=== PATIENT | male | born 1960 | race Caucasian/White ===

== ENCOUNTER 2019-10-12 07:57 | Outpatient (CLI) | payer OTHER, SELFPAY ==
--- NOTE | 2019-10-12 09:15 | ECG_ITS ---
Measurements Intervals [place] Rate: 86 P: 45 AR: 165 QRS: 19 QRSD: 105 T: 16 QT: 339 QTc: 407 Interpretive Statements SINUS RHYTHM BASELINE ARTIFACT- I, III, AVR, AVL, AVF NORMAL ECG Electronically Signed On 10-12-2019 10:22:25 CDT by Luke Sepulveda D.O.
[2019-10-12 09:47] LABS: Basophils Absolute Auto 0.1 K/mm3 (0.0-0.1); Eosinophils Absolute Auto 0.3 K/mm3 (0-0.3); Eosinophils Percent Auto 2.5 % (0-4.4); Hematocrit 44.8 % (42.0-52.0); Hemoglobin 15.7 g/dL (14.0-18.0); Immature Granulocyte Absolute 0.04 K/mm3 (0.00-0.031); Immature Granulocyte Percent A 0.4 % (0-0.5); Lymphocytes Absolute Auto 2.31 K/mm3 (0.9-3.2); Lymphocytes Percent Auto 22.2 % (18.3-44.2); Mean Corpuscular Hemoglobin 32.6 pg (26-34); Mean Corpuscular Volume 93.1 fl (80-100); Mean Platelet Volume 10.9 fl (7.4-10.4); Monocytes Percent Auto 9.1 % (2.6-8.5); Neutrophils Absolute Auto 6.7 K/mm3 (1.3-6.7); Neutrophils Percent Auto 64.8 % (45.5-73.1); Platelet Count Result 211 k/mm3 (150-375); Red Blood Count 4.81 M/mm3 (4.6-6.20); Red Cell Distribution Width 12.8 % (11.5-14.5); White Blood Count 10.4 K/mm3 (4.5-10.0)
[2019-10-12 09:56] LABS: Albumin Level 4.5 g/dL (3.5-5.1)
[2019-10-12 09:58] LABS: Urine Cotinine NEGATIVE
[2019-10-12 10:00] LABS: Blood Urea Nitrogen 23 mg/dL (9-20); Calcium 9.3 mg/dL (8.4-10.2); Carbon Dioxide 29 mmol/L (22-30); Chloride 101 mmol/L (98-107); Estimated Glomerular Filt Rate > 60; Glucose 77 mg/dL (75-110); Sodium 137 mmol/L (137-145)
== END 2019-10-12 07:58 | disposition home or self-care (01) ==
LOC: ANHSURGERY 08:02
PROVIDERS: Anesthesiology; PCP Nurse Practitioner Adult Health; Visit Provider Orthopaedic Surgery
DX: Z01.818 Encounter for other preprocedural examination (principal); M17.11 Unilateral primary osteoarthritis, right knee
CPT/HCPCS: 36415; 80048; 80307; 82040; 83036; 85025; 86850; 86900; 86901; 93005

== ENCOUNTER 2019-10-17 00:12 | Outpatient (CLI) | payer OTHER, SELFPAY ==
[2019-10-17 16:10] LABS: SARS-CoV-2 RNA PCR Negative
== END 2019-10-17 00:13 | disposition home or self-care (01) ==
LOC: ANHCOVIDDT 00:12
PROVIDERS: PCP Nurse Practitioner Adult Health; Visit Provider Orthopaedic Surgery
DX: Z01.818 Encounter for other preprocedural examination (principal); Z11.59 Encounter for screening for other viral diseases
CPT/HCPCS: 87635; C9803; U0003

== ENCOUNTER 2019-10-19 01:42 | Day surgery (SDC) | payer OTHER, SELFPAY ==
[2019-10-12 08:17] VITALS: BMI 33.5
[2019-10-12 09:07] VITALS: BP 120/83; PULSE 97; RESP 18; TEMP 36.9; O2SAT 98
--- NOTE | 2019-10-14 14:19 | PM.IMHP ---
H&P: HPI History of Present Illness Chief complaint: Right Knee OA Narrative: Jose Guadalupe Chavarria is a 59 year old male Who presents with right knee pain chronic in nature. This is due to primary osteoarthritis. He has aching and pain with any activity and is limited in his activities as well. He has started pain rest pain and night pain and cannot stand or walk for long periods. X-rays have shown advanced primary osteoarthritis and despite conservative measures including cortisone therapy and anti-inflammatories as symptoms continue he has mechanical symptoms with swelling worse with activities somewhat relieved by rest. At this point he has discuss further treatment options in detail with Dr. Daniel he would now like to proceed with a total knee arthroplasty right knee. Review of Systems Review of Systems: All systems reviewed & are unremarkable except as noted in HPI and below Meds Home Medications and Allergies Home Medications Medication Instructions Recorded Confirmed Type diclofenac sodium 75 mg PO BID 10/12/19 10/12/19 History furosemide 20 mg PO BID 10/12/19 10/12/19 History gabapentin 300 mg PO TID 10/12/19 10/12/19 History hydrocodone-acetaminophen 1 tablet PO Q6H PRN 10/12/19 10/12/19 History pantoprazole 40 mg PO QAM 10/12/19 10/12/19 History phentermine 37.5 mg PO DAILY 10/12/19 10/12/19 History tamsulosin 0.4 mg PO DAILY 10/12/19 10/12/19 History zolpidem [Ambien] 10 mg PO HS PRN 10/12/19 10/12/19 History Allergies Allergy/AdvReac Type Severity Reaction Status Date / Time No Known Allergies Allergy Unverified 10/12/19 08:09 Exam Narrative: Exam Narrative: Patient is noted to be 5 ft 10 232 lb. HEENT exam within normal limits. Heart regular rate and rhythm. Lungs clear auscultation. Abdomen benign. Extremities showed the patient's right knee to be painful with manipulation range of motion. He has pain with ambulation and walks with an antalgic gait. He has subpatellar crepitation mild effusion swelling knee joint is otherwise stable strength is 5/5. Neurovascular is intact. Skin is intact. X-rays show advanced primarily arthritis right knee joint. Central nervous system exam within normal limits. Assessment and Plan Additional Plan By history x-ray exam the patient is noted to have advanced primary osteoarthritis right knee joint. The patient's discussed risks benefits limitations and alternatives of surgery in great detail Dr. Daniel is noted proceed with right total knee arthroplasty. The patient is scheduled undergo surgery October 19, 2019 and [facility] with Dr. Daniel. The patient voiced understanding agrees above plan. The patient has a history of benign prostatic hypertrophy hypertension GERD chronic pain and will be followed by the hospitalist throughout hospital stay. The plan is to have the patient get over and stay and we evaluated postoperatively and be discharged home when deemed stable.
[2019-10-19] VITALS (17 sets, daily range): BP systolic 103–136; BP diastolic 61–89; PULSE 60–86; RESP 12–22; TEMP 36.1–36.8; O2SAT 93–100; BMI 33.5
--- NOTE | ~2019-10-19 | XR_ITS ---
EXAMINATION: XR knee RT 2V DATE: 10/19/2019 09:27 CDT INDICATION: Right knee arthroplasty TECHNIQUE: 2 views right knee FINDINGS: There is a right total knee arthroplasty in expected position. Subcutaneous gas with fluid and air in the joint and overlying skin ruben are consistent with recent surgery. No evidence of p eriprosthetic fracture. IMPRESSION: 1. Recent right total knee arthroplasty. Reviewed, dictated and finalized at location A.
[2019-10-19] MEDS: LACTATED RINGERS 1,000 ML 30 ML IV CONT ×2 (06:45→09:07)
[2019-10-19] MEDS: TRANEXAMIC ACID 1,000MG/ISO100 1,000 MG/100 ML BAG 200 MG IVPB (07:00)
--- NOTE | 2019-10-19 07:06 | WPDHPUPDATE1 ---
History and Physical Update Update Date/Time: 10/19/19 07:06 History and Physical has been reviewed, including an updated exam of the patient. There are NO changes in the patient's condition. Risks, benefits, and alternatives have been discussed and questions answered. Patient agrees to proceed with procedure.
--- NOTE | 2019-10-19 07:12 | WPDANESEPPF ---
Anes - Initial Pre Proc Eval Procedure: Operation Date: 10/19/19 07:30 Proposed Procedures p Right Total Knee Arthroplasty - Raphael Daniel MD Date/Time: 10/19/19 07:12 Surgeon: Raphael Daniel MD Pre Op Diagnosis: Right Knee OA Patient Data Age: 59 Gender: M Height: 5 ft 10 in Weight: 105.5 kg Last Vital Signs Temp 36.1 C L 10/19/19 06:06 Pulse 82 10/19/19 06:06 Resp 20 10/19/19 06:06 BP 135/89 10/19/19 06:06 Pulse Ox 97 10/19/19 06:06 Allergies Allergy/AdvReac Type Severity Reaction Status Date / Time No Known Allergies Allergy Unverified 10/19/19 06:13 Home Medications Medication Instructions Recorded Confirmed Type diclofenac sodium 75 mg PO BID 10/12/19 10/19/19 History furosemide 20 mg PO BID 10/12/19 10/19/19 History gabapentin 300 mg PO TID 10/12/19 10/19/19 History hydrocodone-acetaminophen 1 tablet PO Q6H PRN 10/12/19 10/19/19 History pantoprazole 40 mg PO QAM 10/12/19 10/19/19 History phentermine 37.5 mg PO DAILY 10/12/19 10/19/19 History tamsulosin 0.4 mg PO DAILY 10/12/19 10/19/19 History zolpidem [Ambien] 10 mg PO HS PRN 10/12/19 10/19/19 History Patient hx anesthesia problems: post op nausea/vomiting Family hx anesthesia problems: none PMFSH Past Medical History Medical History Chronic pain syndrome GERD (gastroesophageal reflux disease) Anes - Eval Final PreProcedure Day of Procedure 10/19/19 07:12 Patient weight: obese Heart: regular rate and rhythm Lungs: clear to auscultation Airway: Mallampati scale class II Neurological: alert and oriented Last oral intake: >/= 8 hours ASA classification: III Emergent: no Anesthetic plan: proceed Anesthesia type and monitoring: general LMA and standard monitoring Informed Consent: The patient's anesthetic plan and its attendant risks and benefits were discussed with the patient/family/POA. Questions were solicited and answers provided to the satisfaction of the patient/family/POA.
[2019-10-19] MEDS: SCOPOLAMINE 1.5 MG PATCH TRANSDERM (07:21)
[2019-10-19] MEDS: ceFAZolin 2 GM/D5W 50 ML 2 GM/50 ML BAG IVPB ×3 (07:31→23:15)
[2019-10-19] MEDS: GENTAMICIN BONE CEMENT REFOBACIN 1 EACH TOPICAL (07:49)
--- NOTE | 2019-10-19 08:40 | P.OP_ITS ---
Procedure Note - Detailed Date of procedure: 10/19/19 Pre-op diagnosis: Right Knee OA Post-op diagnosis: same Procedure performed: Right total knee arthroplasty Description of procedure: The patient was brought to the operating room. General anesthetic was administered. Placed on the operating table and sterilely prepped and draped in usual manner. A longitudinal incision was made. Tourniquet inflated to 300 mmHg for a total of [time] minutes. Dissection carried down to the fascia. Medial parapatellar incision was made and the patella subluxated laterally. Patella cut from [26] to [26] mm and sized for a [37] mm button. The tibia cut perpendicular to the long axis and femur cut in 5 degrees of valgus, a [65] femur trialed. [75] tibia was felt to fit the best. The soft tissue balanced, hemostasis obtained. All [address], [75] tibia, [65] femur, [37] mm patella, and [10] mm poly. Motion was 0-125 degrees with good stablility and flexion and extension. The wound was closed with #2 vicryl, 2-0 Vicryl and ruben. Anesthesia: GETA Surgeon: Raphael Daniel MD Interventional Pain Physician: Arjun Saldana Estimated blood loss (mL): 200 Drains: No Packing: No Pathology: none sent Complications: No immediate complications Condition: stable Disposition: PACU Findings: arthritis
--- NOTE | 2019-10-19 09:56 | WPDANESPNB ---
Anes - Peripheral Nerve Block Date/Time: 10/19/19 09:56 I have discussed with the patient/family/POA the placement of a peripheral nerve block for post-operative pain management, including associated risks, benefits, complications, and side effects. Alternative methods of post-operative analgesia were detailed. Questions were solicited and answers provided to the satisfaction of the patient/family/POA. Time-Out: A pre-procedural Time-Out was completed immediately before starting the procedure and confirmed: Patient Identification, Site, Procedure, Patient Position and the Availability of Requisite Equipment. Clinical Indications: Acute post-operative pain management requested by the operative surgeon. Nerve Block Insertion Note Anes-nerve block: femoral right Patient position: supine Skin prep: chlorhexidine Needle: 22 gauge, stimulating, insulated echogenic needle. Needle length: 50 mm Technique: nerve stimulation lost at (mA) (0.23) Injectate: bupivacaine 0.25% with epi 5 mcg/ml (30ml) Observations: tolerated well Complications: none Procedure start time:: 727 Procedure end time:: 729
[2019-10-19] MEDS: HYDROMORPHONE HCL 1 MG/ML INJ IV PUSH ×3 (10:01→10:23)
--- NOTE | 2019-10-19 11:06 | ADMGEN ---
This patient, Jose Guadalupe Chavarria, was admitted to 2 Medical Room 256-. Patient/family oriented to hospital policies and general routines including ID bracelet, bed and alarms, visiting hours, pain management, procedures, bathroom and other care routines, personal items, smoking policy, room service/diet, and visiting hours. Valuables list has been completed. Information on how to activate the Rapid Response Team has been discussed. Patient/Family are encouraged to report perceived risks to care and to ask questions if they do not understand what they are told or what they should do.
[2019-10-19] MEDS: SODIUM CHLORIDE 0.9% IV 1,000 ML 125 ML IV CONT (11:27)
[2019-10-19] MEDS: DOCUSATE SODIUM 100 MG CAPSULE PO ×2 (12:32→17:15)
[2019-10-19] MEDS: CELECOXIB 200 MG CAPSULE PO ×2 (12:32→17:15)
[2019-10-19] MEDS: GABAPENTIN 300 MG CAPSULE PO ×2 (12:32→17:15)
--- NOTE | 2019-10-19 17:02 | PM.IMCN ---
Assessment and Plan Assessment and plan (1) Status post total right knee replacement: Code(s): Z96.651 - Presence of right artificial knee joint Status: Acute Assessment and Plan: Right knee joint arthroplasty today. OT and PT apparent visit. Increase activity as per Ortho (2) BPH (benign prostatic hyperplasia): Code(s): N40.0 - Benign prostatic hyperplasia without lower urinary tract symptoms Status: Acute Assessment and Plan: Continue tamsulosin (3) Chronic pain: Code(s): G89.29 - Other chronic pain Status: Acute Assessment and Plan: With continue gabapentin an anti inflammatory agent (4) DVT prophylaxis: Code(s): Z29.9 - Encounter for prophylactic measures, unspecified Status: Acute Assessment and Plan: Low-dose Xarelto per Ortho 10 mg daily HPI Data of Consult Consult date: 10/19/19 Requesting Physician: Raphael Daniel MD Primary Care Provider: Tali Bailey, [employer] Consult Narrative Narrative: Date of visit 10/18. Jose Guadalupe Chavarria is a 59 year old male with DJD and status post right total knee today. Has history of benign prostatic hypertrophy ,GERD, and chronic pain issues where contacted to evaluating for these problems. Presently this if you are postop laying in bed comfortable with no appreciable complaints. He has had no shortness of breath or chest discomfort Review of Systems Review of Systems: Narrative: Constitutional weight has been steady appetite good no fever no chills Eye no double vision or scotoma Mouth no pharyngitis laryngitis Pulmonary no shortness breath wheezing or cough CV no chest pain or palpitation, had had negative cardiac catheterization over 5 years ago for chest pain GI no melena hematochezia diarrhea and no dysphagia ,occasional reflux no dysuria no hematuria Muscle skeletal to the knee problems but also chronic back problems and shoulder Integument no skin breakdown rashes Neuro no seizures no syncope Psych no undue depression PMFSH Past Medical History Medical History Chronic pain syndrome GERD (gastroesophageal reflux disease) Family History Family History (Updated 10/19/19 @ 11:12 by Denae Estes RN) Father Colon cancer Grandparent Colon cancer Social History Social History Smoking packs per day: 2 Smoking cigarettes per day: 40.0 Years smoked: 25 Smoking pack-years: 50.00 Smoking status: Former smoker Tobacco type: cigarettes Alcohol intake: current Drinks per week: 2 Substance use: never Substance use type: does not use Gender identity (if verbalized by the patient): Male Spiritual care concerns: No Meds Home Medications and Allergies Home Medications Medication Instructions Recorded Confirmed Type diclofenac sodium 75 mg PO BID 10/12/19 10/19/19 History furosemide 20 mg PO DAILY 10/12/19 10/19/19 History gabapentin 300 mg PO TID 10/12/19 10/19/19 History hydrocodone-acetaminophen 1 tablet PO Q6H PRN 10/12/19 10/19/19 History pantoprazole 40 mg PO QAM 10/12/19 10/19/19 History phentermine 37.5 mg PO DAILY 10/12/19 10/19/19 History tamsulosin 0.4 mg PO DAILY 10/12/19 10/19/19 History zolpidem [Ambien] 10 mg PO HS 10/12/19 10/19/19 History Allergies Allergy/AdvReac Type Severity Reaction Status Date / Time No Known Allergies Allergy Verified 10/19/19 11:14 Vital Signs Vital Signs - 24 hr 10/19/19 06:06 10/19/19 09:07 10/19/19 09:22 Temperature 36.1 C L 36.1 C L Pulse Rate 82 74 79 Respiratory Rate 20 21 H 22 H Blood Pressure 135/89 103/78 133/86 Pulse Oximetry 97 97 100 10/19/19 09:30 10/19/19 09:45 10/19/19 10:00 Temperature Pulse Rate 66 77 76 Respiratory Rate 12 16 16 Blood Pressure 132/82 117/70 136/82 Pulse Oximetry 100 100 100 10/19/19 10:15 10/19/19 10:30 10/19/19 10:45 Temperature
[2019-10-19] MEDS: FUROSEMIDE 20 MG TABLET PO (17:16)
[2019-10-19] MEDS: RIVAROXABAN 10 MG TABLET PO (20:35)
[2019-10-20 02:00] VITALS: BP 124/69; PULSE 80; RESP 17; TEMP 37; O2SAT 98
[2019-10-20 05:27] LABS: Basophils Percent Auto 0.1 % (0.2-1.2); Eosinophils Percent Auto 0.1 % (0-4.4); Hematocrit 37.5 % (42.0-52.0); Hemoglobin 13.1 g/dL (14.0-18.0); Immature Granulocyte Absolute 0.04 K/mm3 (0.00-0.031); Immature Granulocyte Percent A 0.3 % (0-0.5); Lymphocytes Absolute Auto 1.68 K/mm3 (0.9-3.2); Lymphocytes Percent Auto 14.1 % (18.3-44.2); Mean Corpuscular HGB Conc 34.9 g/dl (32-36); Mean Corpuscular Hemoglobin 33.3 pg (26-34); Mean Corpuscular Volume 95.4 fl (80-100); Mean Platelet Volume 10.7 fl (7.4-10.4); Monocytes Absolute Auto 1.2 K/mm3 (0.1-0.6); Monocytes Percent Auto 9.9 % (2.6-8.5); Neutrophils Percent Auto 75.5 % (45.5-73.1); Platelet Count Result 204 k/mm3 (150-375); Red Blood Count 3.93 M/mm3 (4.6-6.20); Red Cell Distribution Width 12.8 % (11.5-14.5); White Blood Count 11.9 K/mm3 (4.5-10.0)
[2019-10-20 05:34] LABS: Blood Urea Nitrogen 14 mg/dL (9-20); Calcium 8.3 mg/dL (8.4-10.2); Carbon Dioxide 31 mmol/L (22-30); Chloride 102 mmol/L (98-107); Estimated CRCL calculation 92 ml/min; Estimated Glomerular Filt Rate > 60; Glucose 107 mg/dL (75-110); Potassium 4.5 mmol/L (3.4-5.0); Sodium 136 mmol/L (137-145)
[2019-10-20 06:00] VITALS: BP 131/75; PULSE 58; RESP 20; TEMP 36.6; O2SAT 99
[2019-10-20] MEDS: ceFAZolin 2 GM/D5W 50 ML 2 GM/50 ML BAG IVPB (06:34)
[2019-10-20] MEDS: CELECOXIB 200 MG CAPSULE PO (08:11)
[2019-10-20] MEDS: GABAPENTIN 300 MG CAPSULE PO ×2 (08:11→13:42)
[2019-10-20] MEDS: FUROSEMIDE 20 MG TABLET PO (08:11)
[2019-10-20] MEDS: DOCUSATE SODIUM 100 MG CAPSULE PO (08:11)
[2019-10-20 08:52] VITALS: BP 114/72; PULSE 88; RESP 16; TEMP 36.7; O2SAT 100
--- NOTE | 2019-10-20 10:36 | PM.IMPN ---
Progress Note: A&P Assessment and Plan (1) Status post total right knee replacement: Code(s): Z96.651 - Presence of right artificial knee joint Status: Acute Assessment and Plan: Right knee joint arthroplasty postop day 1. Doing well . OT and PT per Ortho and may be discharged later today or 10/20 (2) BPH (benign prostatic hyperplasia): Code(s): N40.0 - Benign prostatic hyperplasia without lower urinary tract symptoms Status: Acute Assessment and Plan: Continue tamsulosin (3) Chronic pain: Code(s): G89.29 - Other chronic pain Status: Acute Assessment and Plan: With continue gabapentin and anti inflammatory agent (4) DVT prophylaxis: Code(s): Z29.9 - Encounter for prophylactic measures, unspecified Status: Acute Assessment and Plan: Low-dose Xarelto per Ortho 10 mg daily Subjective Date/time seen: 10/20/19 10:36 Interval history: Date of visit 10/19 . 59-year-old white male with BPH and chronic back pain who underwent right total knee arthroplasty 10/18. Today has already walked in the [place] with PT and states is doing fine. Chest pain shortness breath or other symptoms. Exam Narrative: Exam Narrative: Blood pressure 114/72 pulse is 86 afebrile Pupils equal reactive to light sclera anicteric Mouth normal Lungs clear CV regular rate rhythm no murmurs Abdomen is soft nontender Extremities without edema right leg Srinivasa wrap from foot to above knee Neuro alert pleasant cooperative no focal deficits Integument no visible skin breakdown or rashes Objective Data Vital Signs Vital Signs: Vital Signs - 24 hr 10/19/19 10:45 10/19/19 11:00 10/19/19 11:30 Temperature 36.4 C 36.4 C L 36.2 C L Pulse Rate 63 85 61 Respiratory Rate 20 18 16 Blood Pressure 116/67 109/61 111/71 Pulse Oximetry 94 98 93 10/19/19 12:30 10/19/19 14:00 10/19/19 18:00 Temperature 36.2 C L 36.3 C L 36.7 C Pulse Rate 78 64 86 Respiratory Rate 16 18 16 Blood Pressure 118/68 123/82 116/85 Pulse Oximetry 96 98 96 10/19/19 20:00 10/19/19 21:33 10/19/19 21:34 Temperature 36.8 C 36.8 C Pulse Rate 60 60 60 Respiratory Rate 19 19 19 Blood Pressure 136/85 136/85 Pulse Oximetry 96 96 96 10/20/19 02:00 10/20/19 06:00 10/20/19 08:52 Temperature 37.0 C 36.6 C 36.7 C Pulse Rate 80 58 L 88 Respiratory Rate 17 20 16 Blood Pressure 124/69 131/75 114/72 Pulse Oximetry 98 99 100 Intake/Output Intake/Output: Intake & Output 10/17/19 10/18/19 10/19/19 10/20/19 23:59 23:59 23:59 23:59 Intake Total 3245 1040 Output Total 1925 Balance 3245 -885 Meds/Results Medications: Active Medications Generic Name Dose Route Start Last Admin Trade Name Freq PRN Reason Stop Dose Admin Hydrocodone Bitart/Acetaminophen 1 tab 10/19/19 09:00 10/20/19 08:11 [place] 7.5-325 Mg PO 1 tab Q4HR MERCEDES Administration Celecoxib 200 mg 10/19/19 08:00 10/20/19 08:11 Celebrex PO 200 mg BIDWM MERCEDES Administration Docusate Sodium 100 mg 10/19/19 09:00 10/20/19 08:11 Col[place] Capsule PO 100 mg BID MERCEDES Administration Furosemide 20 mg 10/19/19 17:00 10/20/19 08:11 Lasix Tablet PO 20 mg BID MERCEDES Administration Gabapentin 300 mg 10/19/19 13:00 10/20/19 08:11 Neurontin PO 300 mg TID MERCEDES Administration Morphine Sulfate 4 mg 10/19/19 07:07 Morphine Sulfate Inj IV PUSH Q2H PRN Breakthrough pain rated 7-10 Naloxone HCl 0.1 mg 10/19/19 07:07 Narcan IV PUSH Q2M PRN Opiate Reversal Oxycodone HCl 5 mg 10/19/19 07:07 Roxicodone Ir Tablet PO Q4H PRN Pain Rated 4-6 Rivaroxaban 10 mg 10/19/19 21:00 10/19/19 20:35 Xarelto PO 10/30/19 17:01 10 mg DAILY@17 MERCEDES Administration Radiology Results: ITS Impressions Knee X-Ray 10/19/19 09:27 IMPRESSION: 1. Recent right total knee arthroplasty. Labs Labs: Laboratory Results - last 24 hr 10/20/19
[2019-10-20 14:00] VITALS: BP 128/63; PULSE 70; RESP 18; TEMP 36.6; O2SAT 100
--- NOTE | 2019-10-20 14:20 | PM.PNORT ---
Progress Note: A&P Additional Plan Patient is being discharged home today, he will follow up at 2 weeks postop for staple removal and wound recheck patient instructed to call the office immediately for any problems difficulties or questions he voiced understanding agrees above plan see discharge orders. Time Spent With Patient Time with patient: less than 15 minutes Subjective Subjective Date/Time Seen: 10/20/19 14:20 Patient is 1 day postop status post total knee arthroplasty doing well. He tolerated physical therapy well today. Pain is well controlled. Vital signs are stable he is afebrile neurovascular is intact wound is clean and dry calves are benign patient has no other complaints and is ready for discharge home patient voiced understanding agrees above plan see discharge orders. Review of Systems Review of Systems: All systems reviewed & are unremarkable except as noted in HPI and below Exam Narrative: Exam Narrative: Vital signs stable afebrile, neurovascular is intact. Calves are benign. Wound is clean and dry right total knee arthroplasty. Skin is intact. Objective Data Vital Signs Vital Signs: Vital Signs - 24 hr 10/19/19 18:00 10/19/19 20:00 10/19/19 21:33 Temperature 36.7 C 36.8 C Pulse Rate 86 60 60 Respiratory Rate 16 19 19 Blood Pressure 116/85 136/85 Pulse Oximetry 96 96 96 10/19/19 21:34 10/20/19 02:00 10/20/19 06:00 Temperature 36.8 C 37.0 C 36.6 C Pulse Rate 60 80 58 L Respiratory Rate 19 17 20 Blood Pressure 136/85 124/69 131/75 Pulse Oximetry 96 98 99 10/20/19 08:52 10/20/19 14:00 Temperature 36.7 C 36.6 C Pulse Rate 88 70 Respiratory Rate 16 18 Blood Pressure 114/72 128/63 Pulse Oximetry 100 100 Intake/Output Intake/Output: Intake & Output 10/17/19 10/18/19 10/19/19 10/20/19 23:59 23:59 23:59 23:59 Intake Total 3245 1280 Output Total 1925 Balance 3245 -645 Meds/Results Medications: Active Medications Generic Name Dose Route Start Last Admin Trade Name Freq PRN Reason Stop Dose Admin Hydrocodone Bitart/Acetaminophen 1 tab 10/19/19 09:00 10/20/19 13:42 [place] 7.5-325 Mg PO 1 tab Q4HR MERCEDES Administration Celecoxib 200 mg 10/19/19 08:00 10/20/19 08:11 Celebrex PO 200 mg BIDWM MERCEDES Administration Docusate Sodium 100 mg 10/19/19 09:00 10/20/19 08:11 Colace Capsule PO 100 mg BID MERCEDES Administration Furosemide 20 mg 10/19/19 17:00 10/20/19 08:11 Lasix Tablet PO 20 mg BID MERCEDES Administration Gabapentin 300 mg 10/19/19 13:00 10/20/19 13:42 Neurontin PO 300 mg TID MERCEDES Administration Morphine Sulfate 4 mg 10/19/19 07:07 Morphine Sulfate Inj IV PUSH Q2H PRN Breakthrough pain rated 7-10 Naloxone HCl 0.1 mg 10/19/19 07:07 Narcan IV PUSH Q2M PRN Opiate Reversal Oxycodone HCl 5 mg 10/19/19 07:07 10/20/19 11:33 Roxicodone Ir Tablet PO 5 mg Q4H PRN Administration Pain Rated 4-6 Rivaroxaban 10 mg 10/19/19 21:00 10/19/19 20:35 Xarelto PO 10/30/19 17:01 10 mg DAILY@17 MERCEDES Administration Radiology Results: ITS Impressions Knee X-Ray 10/19/19 09:27 IMPRESSION: 1. Recent right total knee arthroplasty. Labs Labs: Laboratory Results - last 24 hr 10/20/19 10/20/19 05:08 05:08 WBC 11.9 H RBC 3.93 L Hgb 13.1 L Hct 37.5 L MCV 95.4 MCH 33.3 MCHC 34.9 RDW 12.8 Plt Count 204 MPV 10.7 H Immature Gran % (Auto) 0.3 Neut % (Auto) 75.5 H Lymph % (Auto) 14.1 L [place] % (Auto) 9.9 H Eos % (Auto) 0.1 Baso % (Auto) 0.1 L Lymph # (Auto) 1.68 [place] # (Auto) 1.2 H Eos # (Auto) 0.0 Baso # (Auto) 0.0 Abs Immat Gran (auto) 0.04 H Absolute Neuts (auto) 9.0 H Absolute Nucleated RBC 0.0 Nucleated RBC % 0.0 Sodium 136 L Potassium 4.5 Chloride 102 Carbon Dioxide 31 H BUN 14 D Creatinine 0.90 Estim Creat Clear Calc 92 Estimated GFR > 60 Glucose 107 Calcium 8
--- NOTE | 2019-10-20 14:37 | PM.DS ---
DS: Admitting Diagnosis Admitting Diagnosis Admitting Diagnosis: severe primary osteoarthritis right knee joint discharge diagnosis- same, status post right total knee arthroplasty DS: Summary Time Spent with Patient Time attestation: Total time spent providing and/or coordinating discharge services: patient was admitted underwent a right total knee arthroplasty performed by Dr. Raphael Daniel on 10/19 2019. Postop day 1 the patient was doing very well without complaints pain was well-controlled tolerated physical therapy well. Vital signs are stable he is afebrile and neurovascularly intact wound is clean and dry calves are benign patient is postop H&H was stable at 13.1 and 37.5 respectively. Patient was then deemed stable for discharge to home. DS: Data Data Completed and Pending Labs on day of discharge: Labs from last 24 hours 10/20/19 10/20/19 05:08 05:08 WBC 11.9 H RBC 3.93 L Hgb 13.1 L Hct 37.5 L MCV 95.4 MCH 33.3 MCHC 34.9 RDW 12.8 Plt Count 204 MPV 10.7 H Immature Gran % (Auto) 0.3 Neut % (Auto) 75.5 H Lymph % (Auto) 14.1 L [place] % (Auto) 9.9 H Eos % (Auto) 0.1 Baso % (Auto) 0.1 L Lymph # (Auto) 1.68 [place] # (Auto) 1.2 H Eos # (Auto) 0.0 Baso # (Auto) 0.0 Abs Immat Gran (auto) 0.04 H Absolute Neuts (auto) 9.0 H Absolute Nucleated RBC 0.0 Nucleated RBC % 0.0 Sodium 136 L Potassium 4.5 Chloride 102 Carbon Dioxide 31 H BUN 14 D Creatinine 0.90 Estim Creat Clear Calc 92 Estimated GFR > 60 Glucose 107 Calcium 8.3 L Discharge Plan Discharge Patient Disposition: Home, Self-Care Discharge Instructions: Discharge to home today. General diet. Patient is instructed to change his dressing daily and keep the wound clean and dry watch for evidence of infection or drainage. The patient will start outpatient physical therapy at [facility] early next week for total knee protocol. Patient can be weight-bearing as tolerated on the affected side using a walker at all times. Patient will continue Xarelto 10 mg daily for a total postop course of 2 weeks, when this is complete his instructed to start aspirin 325 mg b.i.d. x1 month for DVT prophylaxis. Patient will follow up at 2 weeks postop for staple removal and wound recheck with Dr. Raphael Daniel, he is instructed to call the office immediately at [phone] for any problems difficulties or questions. Stand Alone Forms: Avoid NSAIDs, General Discharge Instructions Follow-up/Referrals: Leo,DOMENICO Cesar [Primary Care Provider] - Keep Reg. Scheduled Appt. Discharge Medications: New docusate sodium 100 mg Capsule 100 mg PO BID PRN (Reason: Constipation) Qty: 60 RF: 0 Xarelto 10 mg Tablet 10 mg PO DAILY@17 Qty: 13 RF: 0 Continued phentermine 37.5 mg Tablet 37.5 mg PO DAILY RF: 0 hydrocodone-acetaminophen 10-325 mg Tablet 1 tablet PO Q6H PRN (Reason: Pain) RF: 0 tamsulosin 0.4 mg Capsule 0.4 mg PO DAILY RF: 0 pantoprazole 40 mg Tablet,Delayed Release (Dr/Ec) 40 mg PO QAM RF: 0 gabapentin 300 mg Capsule 300 mg PO TID RF: 0 furosemide 20 mg Tablet 20 mg PO DAILY RF: 0 zolpidem [Ambien] 10 mg Tablet 10 mg PO HS RF: 0 Discontinued diclofenac sodium 75 mg Tablet,Delayed Release (Dr/Ec) 75 mg PO BID RF: 0
== END 2019-10-20 16:25 | disposition home or self-care (01) ==
LOC: ANHSURGERY 05:54 → ANH2MED 10:37
PROVIDERS: PCP Nurse Practitioner Adult Health; Visit Provider Orthopaedic Surgery
PROC: (CPT 27447; principal; 2019-10-19 07:30)
DX: M17.11 Unilateral primary osteoarthritis, right knee (principal); G89.18 Other acute postprocedural pain; N40.0 Benign prostatic hyperplasia without lower urinary tract symptoms; G89.4 Chronic pain syndrome; K21.9 Gastro-esophageal reflux disease without esophagitis; Z87.891 Personal history of nicotine dependence; E66.9 Obesity, unspecified; Z68.33 Body mass index [BMI] 33.0-33.9, adult
CPT/HCPCS: 27447; 64447; 36415; 73560; 80048; 85025; 97110; 97116; 97161; 97165; 97530; A9270; C1713; C1776; J0171; J0690; J1100; J1170; J1885; J2250; J2270; J2405; J2704; J2795; J3010; J3370; J7030; J7120

== ENCOUNTER 2019-10-23 16:43 | Emergency (ER) | payer OTHER, SELFPAY ==
--- NOTE | ~2019-10-23 | XR_ITS ---
EXAMINATION: XR knee RT 3V DATE: 10/23/2019 18:33 INDICATION: Right knee pain and edema post recent surgery. TECHNIQUE: Anteroposterior, oblique and crosstable lateral views of the right knee were obtained COMPARISON: None. FINDINGS: Right total knee arthroplasty with patellar resurfacing which appears well seated in near-anatomic al ignment. No fracture. No cortical erosion. Soft tissue swelling about the knee, distal thigh and prox imal calf with increasing subcutaneous edema. There appears to be at least a small knee joint effusio n at the suprapatellar pouch however assessment is limited by the surrounding edema. IMPRESSION: 1. Increasing soft tissue swelling about the right knee and possible small right knee joint effusion with expected appearance of the underlying recently placed right total knee arthroplasty. Reviewed, dictated and finalized at location A. IMPRESSION: 1. Increasing soft tissue swelling about the right knee and possible small righ t knee joint effusion with expected appearance of the underlying recently place d right total knee arthroplasty.
[2019-10-23 16:50] VITALS: BP 138/85; PULSE 98; RESP 16; TEMP 37.1; O2SAT 98
--- NOTE | 2019-10-23 17:24 | ED.GENADULT ---
HPI - General Adult General Chief complaint: Extremity Injury, Lower Stated complaint: post-op knee replacement, possible dvt Time Seen by Provider: 10/23/19 16:46 Source: patient and family Mode of arrival: wheelchair Limitations: no limitations History of Present Illness HPI narrative: Patient is a 59-year-old male with a history total knee arthroplasty by Dr. Daniel on 10/18. Patient reportedly has had increased swelling, right lower extremity pain and inability to move the leg since that time. Patient states the pain medication he is taking at home is not really improving the pain, and patient is worried he has had a blood clot. Dr. Daniel instructed him to come to this facility for assessment. No redness, no discharge from the wound. No fever. Pain is dull, aching in nature located in the right lower extremity, he is noticed swelling without redness, minimal bruising. Patient denies numbness. Related Data Home Medications Medication Instructions Recorded Confirmed furosemide 20 mg PO DAILY 10/12/19 10/19/19 gabapentin 300 mg PO TID 10/12/19 10/19/19 hydrocodone-acetaminophen 1 tablet PO Q6H PRN 10/12/19 10/19/19 pantoprazole 40 mg PO QAM 10/12/19 10/19/19 phentermine 37.5 mg PO DAILY 10/12/19 10/19/19 tamsulosin 0.4 mg PO DAILY 10/12/19 10/19/19 zolpidem [Ambien] 10 mg PO HS 10/12/19 10/19/19 Allergies Allergy/AdvReac Type Severity Reaction Status Date / Time No Known Allergies Allergy Verified 10/23/19 16:55 Review of Systems Review of Systems: Narrative: CONSTITUTIONAL: Denies fever CARDIOVASCULAR: Denies chest pain RESPIRATORY: Denies cough or dyspnea. GASTROINTESTINAL: Denies abdominal pain SKIN: Denies rash MUSCULOSKELETAL: Denies back pain, reports right lower extremity pain NEUROLOGIC: Denies headache [facility] Family History Family History (Updated 10/19/19 @ 11:12 by Denae Estes RN) Father Colon cancer Grandparent Colon cancer Social History Social History Smoking packs per day: 2 Smoking cigarettes per day: 40.0 Years smoked: 25 Smoking pack-years: 50.00 Smoking status: Former smoker Tobacco type: cigarettes Alcohol intake: current Drinks per week: 2 Substance use: never Substance use type: does not use Gender identity (if verbalized by the patient): Male Spiritual care concerns: No Exam Narrative: Exam Narrative: GENERAL: Awake, alert, conversant HEAD: Normocephalic, atraumatic. EYES: PERRLA and EOMI. ENT: Nares clear, no rhinorrhea or epistaxis. Mucous membranes moist. NECK: Supple. CHEST: No respiratory distress, breathing even and non labored HEART: Regular rate, sinus rhythm ABDOMEN:Non distended, non tender EXTREMITIES: Intact surgical scar, clean, dry, intact without any discharge or dehiscence present. No erythema overlying the wound. No skin breakdown. Mild ecchymosis to the medial aspect of the right thigh. Nonpitting edema to the knee of the right lower extremity. Mild calf tenderness to palpation. DP pulse obtainable with a Doppler. SKIN: Warm, dry, no rash. NEURO:No focal deficits. Alert and oriented x3 Course Vital Signs Vital signs: Vital Signs Temperature 37.1 C 10/23/19 16:50 Pulse Rate 98 10/23/19 16:50 Respiratory Rate 16 10/23/19 16:50 Blood Pressure 138/85 10/23/19 16:50 Pulse Oximetry 98 10/23/19 16:50 Temperature 37.1 C 10/23/19 16:50 Pulse Rate 98 10/23/19 16:50 Respiratory Rate 16 10/23/19 16:50 Blood Pressure 138/85 10/23/19 16:50 Pulse Oximetry 98 10/23/19 16:50 Medical Decision Making MDM Narrative Medical decision making narrative: Patient presented to the emergency department for evaluation of right leg swelling since his total knee replacement 4 days previously. Patient is neurovascularly intact. Laboratory results are reassuring, no severe anemia, no severe leukocytosis. Clinically there are no signs of
[2019-10-23 18:07] LABS: Basophils Absolute Auto 0.1 K/mm3 (0.0-0.1); Eosinophils Absolute Auto 0.3 K/mm3 (0-0.3); Hematocrit 38.5 % (42.0-52.0); Hemoglobin 13.1 g/dL (14.0-18.0); Immature Granulocyte Absolute 0.03 K/mm3 (0.00-0.031); Immature Granulocyte Percent A 0.4 % (0-0.5); Lymphocytes Absolute Auto 1.98 K/mm3 (0.9-3.2); Lymphocytes Percent Auto 25.8 % (18.3-44.2); Mean Corpuscular Hemoglobin 32.2 pg (26-34); Mean Corpuscular Volume 94.6 fl (80-100); Monocytes Absolute Auto 0.7 K/mm3 (0.1-0.6); Monocytes Percent Auto 9.4 % (2.6-8.5); Neutrophils Absolute Auto 4.6 K/mm3 (1.3-6.7); Neutrophils Percent Auto 59.4 % (45.5-73.1); Platelet Count Result 260 k/mm3 (150-375); Red Blood Count 4.07 M/mm3 (4.6-6.20); Red Cell Distribution Width 12.7 % (11.5-14.5); White Blood Count 7.7 K/mm3 (4.5-10.0)
[2019-10-23 18:18] LABS: Blood Urea Nitrogen 13 mg/dL (9-20); Carbon Dioxide 34 mmol/L (22-30); Chloride 99 mmol/L (98-107); Estimated CRCL calculation 92 ml/min; Estimated Glomerular Filt Rate > 60; Glucose 103 mg/dL (75-110); Sodium 138 mmol/L (137-145)
[2019-10-23 18:19] LABS: D Dimer 1.87 ug/mL (<0.48)
[2019-10-23 19:35] VITALS: BP 128/78; PULSE 77; RESP 16; TEMP 36.6; O2SAT 100
== END 2019-10-23 19:36 | disposition home or self-care (01) ==
PROVIDERS: Emergency Provider Emergency Medicine; PCP Nurse Practitioner Adult Health
DX: T84.84XA Pain due to internal orthopedic prosthetic devices, implants and grafts, initial encounter (principal); Z96.651 Presence of right artificial knee joint; Z87.891 Personal history of nicotine dependence; N40.0 Benign prostatic hyperplasia without lower urinary tract symptoms; K21.9 Gastro-esophageal reflux disease without esophagitis; Z98.84 Bariatric surgery status; Z79.01 Long term (current) use of anticoagulants
CPT/HCPCS: 36415; 73562; 80048; 85025; 85380; 99283; A9270

== ENCOUNTER 2019-10-24 07:50 | Outpatient (CLI) | payer OTHER, SELFPAY ==
--- NOTE | ~2019-10-24 | US_ITS ---
US venous doppler LE RT DATE: 10/24/2019 08:30 INDICATION: Post surgical knee pain, swelling TECHNIQUE: Real-time and color flow imaging and Doppler analysis of the veins of the right lower extr emity COMPARISON: None FINDINGS: The right greater saphenous vein is patent. There is spontaneous and phasic flow and normal augmentation and color flow signal and normal compression of the deep veins of the right lower extre mity. IMPRESSION: No evidence of deep venous thrombosis of right lower extremity Reviewed, dictated and finalized at Location A. Reviewed, dictated and finalized at location A.
== END 2019-10-24 07:51 | disposition home or self-care (01) ==
PROVIDERS: PCP Nurse Practitioner Adult Health; Visit Provider Orthopaedic Surgery
DX: R60.0 Localized edema (principal)
CPT/HCPCS: 93971

== ENCOUNTER 2021-11-26 10:08 | Outpatient (CLI) | payer OTHER, SELFPAY ==
--- NOTE | 2021-11-26 | ECG_ITS ---
Measurements Intervals [place] Rate: 48 P: 42 OK: 176 QRS: 29 QRSD: 106 T: 28 QT: 413 QTc: 372 Interpretive Statements SINUS BRADYCARDIA EARLY PRECORDIAL R/S TRANSITION ABNORMAL ECG Electronically Signed On 11-26-2021 10:59:24 CDT by Luke Sepulveda D.O.
== END 2021-11-26 10:09 | disposition home or self-care (01) ==
PROVIDERS: PCP Nurse Practitioner Adult Health; Visit Provider Nurse Practitioner Adult Health
DX: Z01.89 Encounter for other specified special examinations (principal); R94.31 Abnormal electrocardiogram [ECG] [EKG]
CPT/HCPCS: 93005

== ENCOUNTER 2021-12-11 09:43 | Outpatient (CLI) | payer OTHER, SELFPAY ==
[2021-12-11 10:22] LABS: Anion Gap 4 mmol/L (8-16); Blood Urea Nitrogen 17 mg/dL (9-20); Calcium 8.6 mg/dL (8.4-10.2); Carbon Dioxide 28 mmol/L (22-30); Chloride 107 mmol/L (98-107); Estimated Glomerular Filt Rate > 60; Glucose 86 mg/dL (65-110); Potassium 4.1 mmol/L (3.4-5.0); Sodium 139 mmol/L (137-145)
== END 2021-12-11 09:44 | disposition home or self-care (01) ==
PROVIDERS: Anesthesiology; PCP Nurse Practitioner Adult Health; Visit Provider Neurological Surgery
DX: Z01.812 Encounter for preprocedural laboratory examination (principal); M47.812 Spondylosis without myelopathy or radiculopathy, cervical region; Z51.81 Encounter for therapeutic drug level monitoring; Z79.899 Other long term (current) drug therapy
CPT/HCPCS: 36415; 80048; 86850; 86900; 86901

== ENCOUNTER 2021-12-19 02:48 | Day surgery (SDC) | payer OTHER, SELFPAY ==
[2021-12-10 12:18] VITALS: BMI 30.7
--- NOTE | 2021-12-10 12:34 | PC.NURSE ---
Report to the Outpatient Waiting Room, entrance under the green pavilion located off [facility], at time 7:30 on date 12/19/21. OR Time: 9:30. - You and your visitor will be asked a series of questions to screen for COVID 19 for your protection. - Only one visitor is allowed at this time. - The patient visitor is requested to leave or wait in car when not with patient. - A mask is required within the hospital. Patients may have clear liquids (water, carbonated beverages, clear teas, apple juice) until 3 hours prior to surgery with a maximum of 20 ounces. - No food from midnight until time of surgery Take the following medications with a SIP of water the morning of surgery: GABAPENTIN, PAIN PILL (IF NEEDED) Medications to discontinue per physician: VITAMINS/SUPPLEMENTS Date to take last dose: 12/15/[address] SANDERSON Please no make-up, nail divehi, hairspray, perfume, deodorant, or body powder the day of surgery. No jewelry (including any body piercings) or valuables the day of surgery, leave them at home. Please take a shower or bath the night before, or the morning of, surgery with an antibacterial soap. Wear comfortable, loose fitting clothing. - Jewelry must be removed prior to entering the operating room. Rings and piercings that are not removed may be cut off. - The hospital will not accept responsibility for valuables. - Please leave all valuables, including medications, at home the day of surgery. If you are going home after surgery, a licensed shag truck driver must drive you home. - NO public transportation without another adult. - We recommend that an adult stay with you for 24 hours following discharge. - We also recommend that you do not drive, make important decision, drink alcoholic beverages, or take any drugs that were not prescribed by your health care provider for at least 24 hours after your discharge time. Follow any additional instructions given to you from your surgeon. If you or anyone in your household have experienced Covid symptoms in the past week, please notify your surgeon or the nurse liaison at the phone number below for possible testing. Telephone instructions given to PT - SYLWIA FLYNN and asked if any additional questions and then verbalized understanding. Patient advised to call surgeon office or pre surgery nurse liaison [phone] if any additional questions.
--- NOTE | 2021-12-18 13:34 | WPDANESEPPF ---
Anes - Initial Pre Proc Eval Procedure: Operation Date: 12/19/21 07:30 Proposed Procedures p C4-5 Anterior Cervical Discectomy and Fusion - Arjun Gonzales MD Date/Time: 12/18/21 13:34 Surgeon: Arjun Gonzales MD Pre Op Diagnosis: Cerv Spondylosis, Cerv Neuroforaminal Patient Data Age: 61 Gender: M Height: 1.78 m Weight: 97.07 kg Allergies Allergy/AdvReac Type Severity Reaction Status Date / Time No Known Allergies Allergy Verified 12/19/21 06:20 Home Medications Medication Instructions Recorded Confirmed Type furosemide 20 mg tablet 20 mg PO DAILY 10/12/19 12/19/21 History gabapentin 300 mg capsule 300 mg PO TID 10/12/19 12/19/21 History hydrocodone 10 mg-acetaminophen 1 tablet PO Q6H PRN Pain 10/12/19 12/19/21 History 325 mg tablet pantoprazole 40 mg tablet,delayed 40 mg PO QAM 10/12/19 12/19/21 History release tamsulosin 0.4 mg capsule 0.4 mg PO DAILY 10/12/19 12/19/21 History zolpidem 10 mg tablet (Ambien) 10 mg PO HS INSOMNIA 10/12/19 12/19/21 History docusate sodium 100 mg capsule 100 mg PO BID PRN Constipation #60 10/20/19 12/19/21 Rx caps cyclobenzaprine 10 mg tablet 10 mg PO HS PRN Pain 12/10/21 12/19/21 History diclofenac sodium 75 mg 75 mg PO BID 12/10/21 12/19/21 History tablet,delayed release escitalopram oxalate 10 mg tablet 10 mg PO HS 12/10/21 12/19/21 History lactobacillus comb no.10 20 20,000 mmu cells PO DAILY 12/10/21 12/19/21 History billion cell capsule (Probiotic) multivitamin 1 tablet PO DAILY 12/10/21 12/19/21 History Patient hx anesthesia problems: none Family hx anesthesia problems: none Results Review: All pre-operative results and documents have been reviewed as part of the pre-operative evaluation. [facility] Past Medical History Medical History (Updated 12/18/21 @ 13:36 by Donavan Padron MD) Anxiety Arthritis BPH (benign prostatic hyperplasia) Chronic narcotic use Chronic pain Chronic pain syndrome Depression DVT prophylaxis GERD (gastroesophageal reflux disease) Obesity Surgical History Surgical History (Updated 10/23/19 @ 17:41 by Merlene Bautista MD) H/O rotator cuff surgery History of inguinal hernia repair Status post gastric banding Status post total right knee replacement Family History Family History (Updated 10/19/19 @ 11:12 by Denae Estes RN) Father Colon cancer Grandparent Colon cancer Social History Social History Smoking packs per day: 2 Smoking cigarettes per day: 40.0 Years smoked: 20 Smoking pack-years: 40.00 Smoking status: Former smoker Tobacco type: cigarettes Smoking end date: 05/25/99 Alcohol intake: current Drinks per week: 5 Substance use: never Substance use type: does not use Living arrangements: with family Gender identity (if verbalized by the patient): Male Spiritual care concerns: No Anes - Eval Final PreProcedure Day of Procedure 12/18/21 13:34 Patient weight: obese Heart: regular rate and rhythm Lungs: clear to auscultation Airway: Mallampati scale class II Neurological: alert and oriented Last oral intake: >/= 8 hours ASA classification: III Emergent: no Anesthetic plan: proceed Anesthesia type and monitoring: general ETT and standard monitoring Results Review: All pre-operative results and documents have been reviewed as part of the pre-operative evaluation. Informed Consent: The patient's anesthetic plan and its attendant risks and benefits were discussed with the patient/family/POA. Questions were solicited and answers provided to the satisfaction of the patient/family/POA.
[2021-12-19] VITALS (11 sets, daily range): BP systolic 130–148; BP diastolic 81–93; PULSE 64–88; RESP 12–18; TEMP 36.2–36.6; O2SAT 95–100
--- NOTE | ~2021-12-19 | XR_ITS ---
XR fluoroscopy no charge Procedure: C4-C5 anterior cervical discectomy and fusion TECHNIQUE: Fluoroscopy used during C4-5 anterior cervical discectomy and fusion performed by [Matt Gonzales MD] on 12/19/2021. 14 seconds with 3 fluoroscopic images captured. ] FINDINGS: Correlate with procedure note. IMPRESSION: Fluoroscopy used during C4-5 anterior cervical discectomy and fusion. Please refer to pro cedural report for details. Reviewed, dictated and finalized at location A. IMPRESSION: Fluoroscopy used during C4-5 anterior cervical discectomy and fusio n. Please refer to procedural report for details.
[2021-12-19] MEDS: LACTATED RINGERS 1,000 ML 30 ML IV CONT ×2 (06:40→09:30)
--- NOTE | 2021-12-19 07:12 | PM.IMHP ---
H&P: HPI History of Present Illness Date/Time: 12/19/21 07:12 Chief Complaint: Neck and arm pain Narrative: Mr. Chavarria is a 61-year-old gentleman with a progressive history of problems related to his neck and upper extremity presents now for a C4-5 anterior cervical diskectomy and fusion. He has not changed appreciably since we last saw him. He is not having specific muscle group weakness or dermatomal numbness of the static nature. He does not have bowel or bladder difficulty or gait disturbance. Review of Systems Review of Systems: Patient denies shortness of breath, cough, fever, chills, nausea, vomiting, weight loss, gait disturbance, weight gain, chest pain. He has neck pain and upper extremity pain and shoulder pain as above. He has neck stiffness. He is otherwise negative on 12 systems. [facility] Past Medical History Medical History (Updated 12/19/21 @ 07:15 by Arjun Gonzales MD) Anxiety Arthritis BPH (benign prostatic hyperplasia) Chronic narcotic use Chronic pain Chronic pain syndrome Depression DVT prophylaxis GERD (gastroesophageal reflux disease) Obesity Surgical History Surgical History (Updated 10/23/19 @ 17:41 by Merlene Bautista MD) H/O rotator cuff surgery History of inguinal hernia repair Status post gastric banding Status post total right knee replacement Family History Family History (Updated 10/19/19 @ 11:12 by Denae Estes RN) Father Colon cancer Grandparent Colon cancer Social History Social History Smoking packs per day: 2 Smoking cigarettes per day: 40.0 Years smoked: 20 Smoking pack-years: 40.00 Smoking status: Former smoker Tobacco type: cigarettes Smoking end date: 05/25/99 Alcohol intake: current Drinks per week: 5 Substance use: never Substance use type: does not use Living arrangements: with family Gender identity (if verbalized by the patient): Male Spiritual care concerns: No Meds Home Medications and Allergies Home Medications Medication Instructions Recorded Confirmed Type furosemide 20 mg tablet 20 mg PO DAILY 10/12/19 12/19/21 History gabapentin 300 mg capsule 300 mg PO TID 10/12/19 12/19/21 History hydrocodone 10 mg-acetaminophen 1 tablet PO Q6H PRN Pain 10/12/19 12/19/21 History 325 mg tablet pantoprazole 40 mg tablet,delayed 40 mg PO QAM 10/12/19 12/19/21 History release tamsulosin 0.4 mg capsule 0.4 mg PO DAILY 10/12/19 12/19/21 History zolpidem 10 mg tablet (Ambien) 10 mg PO HS INSOMNIA 10/12/19 12/19/21 History docusate sodium 100 mg capsule 100 mg PO BID PRN Constipation #60 10/20/19 12/19/21 Rx caps cyclobenzaprine 10 mg tablet 10 mg PO HS PRN Pain 12/10/21 12/19/21 History diclofenac sodium 75 mg 75 mg PO BID 12/10/21 12/19/21 History tablet,delayed release escitalopram oxalate 10 mg tablet 10 mg PO HS 12/10/21 12/19/21 History lactobacillus comb no.10 20 20,000 mmu cells PO DAILY 12/10/21 12/19/21 History billion cell capsule (Probiotic) multivitamin 1 tablet PO DAILY 12/10/21 12/19/21 History Allergies Allergy/AdvReac Type Severity Reaction Status Date / Time No Known Allergies Allergy Verified 12/19/21 06:20 Vital Signs Vital Signs - 24 hr 12/19/21 06:05 Temperature 97.9 F Pulse Rate 64 Respiratory Rate 18 Blood Pressure 130/84 Pulse Oximetry 100 Oxygen Delivery Room Air Exam Narrative: Patient is normally developed, normal appearing male supine in the hospital bed in no acute distress. He is awake, alert, oriented x3, with good fund of knowledge, recall events and fluent speech. His face is symmetrical, his tongue is midline, his pupils are equal and reactive, his extraocular movements are intact. Strength is 5/5 in all muscle groups of the bilateral upper extremities to direct confrontation. Sensation is intact to light touch throughout the upper extremities. Regular rate and rhythm Cl
--- NOTE | 2021-12-19 07:16 | WPDHPUPDATE1 ---
History and Physical Update Update Date/Time: 12/19/21 07:16 History and Physical has been reviewed, including an updated exam of the patient. There are NO changes in the patient's condition. Risks, benefits, and alternatives have been discussed and questions answered. Patient agrees to proceed with procedure.
[2021-12-19] MEDS: ceFAZolin 2 GM/D5W 50 ML 2 GM/50 ML BAG IVPB (07:24)
[2021-12-19] MEDS: LIDO 1%/EPINEPHRINE 1:100,000 50 ML VIAL INFILTRATE (07:52)
--- NOTE | 2021-12-19 09:01 | W.PM.PROC2 ---
Procedure Note - Detailed Date of Procedure 12/19/21 Pre-op Diagnosis Cerv Spondylosis, Cerv Neuroforaminal Post-op Diagnosis Same Procedure Performed C4-5 complete diskectomy and bilateral neural foraminotomy, C4-5 interbody arthrodesis utilizing local autograft bone and I factor, C4-5 anterior cervical plating with locking plate and screws Surgeon Arjun Gonzales MD Bakery Chef Sandra Anesthesia General Indications Mr. Chavarria is a 61-year-old gentleman with neck and arm pain related to the above pathology who presents for decompression and fusion from an anterior approach Findings Neural foraminal narrowing Description of Procedure Mr. Chavarria was brought to the operating room in the supine position, was sedated, intubated and placed under general anesthesia in routine fashion. The area of operation on the right side of his neck was examined, marked for incision, prepped and draped in routine sterile fashion. Incision was marked from the midline over the medial aspect of the sternocleidomastoid muscle in curvilinear transverse fashion 4 fingerbreadths above the sternal notch. This area was injected with 0.5% lidocaine with [id number] epinephrine. Intravenous antibiotics given prior to incision. Incision was made with a 10 blade scalpel down to the platysma muscle. The skin was undermined and the platysma muscle was divided longitudinally with its fibers using Metzenbaum scissors. A plane was then dissected medial to the sternocleidomastoid muscle down to the anterior aspect of spine using fingers and Metzenbaum scissors. Verify x-rays obtained to verify the level of operation. A Shadow Line self-retaining retractor was placed. Gilles pins were placed into C4 and C5 and distraction placed over the disc space. The disc spaces entered by cutting along the margin of the bone above and below. A curved curette pituitary rongeur were used to remove as much cartilaginous endplate and disc material as possible down to the annulus and ligament posteriorly. Midas-Devon drill was used to bur down the endplates to bleeding cortical flat surfaces as well as to begin a bony foraminotomy bilaterally. Under microscopy a 4-0 curved curette was used to come through the annulus and ligament. A 2. Kerrison punch was used to remove the annulus ligament posterior osteophytes and to complete a bony foraminotomy bilaterally. This was done until a nerve hook could be placed out each foramen to confirm lack of compression. The disc space was sized and an 8 mm peek interbody device was chosen and filled with a combination of local autograft bone dust and I factor. Was then placed into the disc space to a 1-2 mm countersink. The Trinidad pins and distraction were then removed. A 14 mm anterior plate was chosen placed in position and secured using 414 x 4 mm anterior screws advanced into the locking mechanism of the plate to hand tightness. The locking mechanism was engaged with the same screwdriver. A verifying x-rays obtained to verify good position of the instrumentation which was for. The wound was then copiously irrigated with bacitracin irrigation all bleeding was stopped with bipolar and Bovie cautery and Gelfoam thrombin powder. The wound was then closed in layered fashion with 3-0 Vicryl interrupted sutures in the platysma muscle and in the dermis. The skin was closed with a running 4-0 Monocryl subcuticular stitch and dressed with Dermabond. A Telfa and Tegaderm dressing was applied. The patient was then allowed to wake up in the operating room and was taken to the recovery room in stable condition. There were no immediate complications of this operation. All counts were reported correct at the end of the case. Blood loss was 10 cc. The patient is neurologically at his baseline postoperatively. Implants Anterior cervical plate with locking screws, peek interbody device Estimated Blood Loss 10 IV Fluids 1,000 Complications None Condition Stable Dispositio
[2021-12-19] MEDS: fentaNYL CITRATE INJ (*CRX) 100 MCG/2 ML VIAL 25 MCG IV PUSH ×4 (09:10→09:27)
[2021-12-19] MEDS: oxyCODONE HCL (*CRX) 5 MG TAB IR PO (10:27)
== END 2021-12-19 11:40 | disposition home or self-care (01) ==
PROVIDERS: PCP Nurse Practitioner Adult Health; Visit Provider Neurological Surgery
PROC: 0RB30ZZ Excision of Cervical Vertebral Disc, Open Approach (ICD-10-PCS; CPT 22551; principal; 2021-12-19 07:30)
DX: M47.812 Spondylosis without myelopathy or radiculopathy, cervical region (principal); G89.4 Chronic pain syndrome; N40.0 Benign prostatic hyperplasia without lower urinary tract symptoms; K21.9 Gastro-esophageal reflux disease without esophagitis; F41.9 Anxiety disorder, unspecified; F32.A Depression, unspecified; Z79.1 Long term (current) use of non-steroidal anti-inflammatories (NSAID); Z79.891 Long term (current) use of opiate analgesic; E66.9 Obesity, unspecified; Z68.30 Body mass index [BMI] 30.0-30.9, adult; Z98.84 Bariatric surgery status; Z87.891 Personal history of nicotine dependence
CPT/HCPCS: 22551; 22853; 20936; 36415; 80048; 86850; 86900; 86901; 99199; A9270; J0330; J0690; J1100; J1170; J2250; J2405; J2704; J3010; J7120

== ENCOUNTER 2022-02-03 09:48 | Outpatient (CLI) | payer OTHER, SELFPAY ==
--- NOTE | ~2022-02-03 | XR_ITS ---
EXAMINATION:XR_[id number]_CR DATE: 02/03/2022 10:08 INDICATION: Spondylosis without myelopathy TECHNIQUE: AP, lateral, lateral swimmers and odontoid views of the cervical spine are provided. COMPARISON: None FINDINGS: There are 2 mm of retrolisthesis of C3 on C4. There are changes of anterior fusion with int erbody device placement at C4-5. The cervicothoracic junction is not well demonstrated on the lateral view. The odontoid is intact. No fracture is identified. There is moderate loss of intervertebral di sc space height at C3-4. There is no fracture. Prevertebral soft tissues are normal. IMPRESSION: 1. Moderate cervical spondylosis and changes of anterior fusion without acute fracture. Reviewed, dictated and finalized at location B. IMPRESSION: 1. Moderate cervical spondylosis and changes of anterior fusion without acute f racture.
== END 2022-02-03 09:49 | disposition home or self-care (01) ==
LOC: ANHIMG 09:52
PROVIDERS: PCP Nurse Practitioner Adult Health; Visit Provider Neurological Surgery
DX: M47.812 Spondylosis without myelopathy or radiculopathy, cervical region (principal); Z98.1 Arthrodesis status
CPT/HCPCS: 72040

== ENCOUNTER 2022-05-12 09:37 | Outpatient (CLI) | payer OTHER, SELFPAY ==
--- NOTE | ~2022-05-12 | XR_ITS ---
Cervical Spine: AP, lateral, open-mouth views Clinical History: Spondylosis without myelopathy Findings: The normal lordotic curve is maintained. Anterior fusion hardware is present from C4 to C5 with associated disc fusion device at this level. There is mild degenerative disc narrowing at C3-C4. Remaining disc spaces are preserved. Pre-vertebral soft tissues are unremarkable. Impression: Anterior fusion from C4 to C5, as detailed above. Mild degenerative disc narrowing at C3-C4. Reviewed, dictated and finalized at location [] OPERATOR Impression: Anterior fusion from C4 to C5, as detailed above. Mild degenerative disc narrowing at C3-C4.
== END 2022-05-12 09:38 | disposition home or self-care (01) ==
PROVIDERS: PCP Nurse Practitioner Adult Health; Visit Provider Neurological Surgery
DX: M47.812 Spondylosis without myelopathy or radiculopathy, cervical region (principal); Z98.1 Arthrodesis status
CPT/HCPCS: 72050

== ENCOUNTER 2023-05-29 10:24 | Observation (INO) | payer OTHER, SELFPAY ==
--- NOTE | ~2023-05-29 | MR_ITS ---
EXAMINATION: MR lumbar spine wo/w con DATE: 05/29/2023 17:55 INDICATION: Urinary retention. Spinal stenosis. TECHNIQUE: Magnetic resonance imaging (MRI) of the lumbar spine was performed without and with 20 mL MultiHance intravenous contrast. COMPARISON: None FINDINGS: There is 3 mm retrolisthesis of T12 on L1 and L1 on L2. There is mild chronic anterior wedg ing of T12 vertebral body. There is severely decreased disc height at T12-L1 with interbody fusion. T here is mildly decreased disc height at L2-L3, moderately decreased disc height at L3-L4, mildly decr eased disc height at L3-L4 and L4-L5, and severely decreased disc height at L5-S1. There is ligamentu m flavum hypertrophy from L1-L2 through L4-L5. The distal spinal cord signal intensity is normal. The conus medullaris is at T12-L1. The following disc levels are specifically discussed: L1-L2: The disc is bulging. There is moderate bilateral facet joint osteoarthritis. There is mild rig ht and moderate left neural foraminal stenosis. There is mild central canal stenosis. L2-L3: The disc is bulging and has an annular fissure. There is severe bilateral facet joint osteoart hritis. There is moderate bilateral neural foraminal stenosis. There is mild central canal stenosis. L3-L4: The disc is bulging and has an annular fissure. There is severe bilateral facet joint osteoart hritis. There is moderate bilateral neural foraminal stenosis. There is mild central canal stenosis. L4-L5: The disc is bulging and has an annular fissure. There is severe bilateral facet joint osteoart hritis. There is mild right and moderate left neural foraminal stenosis. There is mild central canal stenosis. There is moderate stenosis of left lateral recess. L5-S1: The disc is bulging and has an annular fissure. There is severe bilateral facet joint osteoart hritis. There is moderate bilateral neural foraminal stenosis. There is mild central canal stenosis. IMPRESSION: 1. Severe lumbar spondylosis. Reviewed, dictated and finalized at location E. [employer]
[2023-05-29 10:30] VITALS: BP 124/76; PULSE 92; RESP 16; TEMP 36.3; O2SAT 100
--- NOTE | 2023-05-29 13:33 | ED.MALEGU ---
HPI - Male Genitourinary General Chief complaint: Urogenital-Male Stated complaint: low back pain Time Seen by Provider: 05/29/23 12:37 History of Present Illness HPI Narrative: Patient is a 63-year-old male who presents ER with inability to urinate. Ongoing over last 2 days. Associated with low back pain. Patient has BPH but he also has history of lumbar spinal stenosis with neurologic claudication. He is scheduled to have a surgery 1 month from now by Dr. Gonzales. Has no new saddle anesthesia or lower extremity weakness. He reports constipation for 3 days per reports that occurs often due to narcotic pain management. He has had no trauma to his back. No fevers or chills or sweats. Related Data Home Medications Medication Instructions Recorded Confirmed cyclobenzaprine 10 mg tablet mg 05/29/23 diclofenac sodium 75 mg mg PO 05/29/23 05/29/23 tablet,delayed release escitalopram oxalate 10 mg tablet mg 05/29/23 furosemide 20 mg tablet mg 05/29/23 hydrocodone 10 mg-acetaminophen tablet 05/29/23 325 mg tablet lisinopril 10 mg tablet mg 05/29/23 pantoprazole 40 mg tablet,delayed mg PO 05/29/23 release tamsulosin 0.4 mg capsule mg PO 05/29/23 zolpidem 10 mg tablet mg 05/29/23 Allergies Allergy/AdvReac Type Severity Reaction Status Date / Time No Known Allergies Allergy Verified 05/29/23 13:00 Review of Systems Review of Systems: All systems reviewed & are unremarkable except as noted in HPI and below Constitutional: Constitutional: Denies chills, Denies fatigue and Denies fever(s) ENT: Reports system reviewed and no additional complaints, except as documented Cardiovascular: Cardiovascular: Reports no additional cardiovascular complaints Respiratory: Respiratory: Reports no additional respiratory complaints Gastrointestinal: Gastrointestinal: Denies abdominal pain, Reports constipation, Denies nausea and Denies vomiting Genitourinary: Genitourinary: Reports oliguria, Denies dysuria, Denies urinary frequency and Denies urinary incontinence [facility] Past Medical History Medical History (Updated 05/29/23 @ 17:09 by Anupam Baires MD) Anxiety Arthritis BPH (benign prostatic hyperplasia) Chronic narcotic use Chronic pain Chronic pain syndrome Depression DVT prophylaxis GERD (gastroesophageal reflux disease) Obesity Surgical History Surgical History (Updated 04/27/23 @ 07:59 by Nya Singh CMA) H/O rotator cuff surgery History of inguinal hernia repair History of neck surgery c4-c5 discectomy History of shoulder surgery bilateral Status post gastric banding Status post total right knee replacement Dr Daniel Family History Family History Father Colon cancer Grandparent Colon cancer Social History Social History (Updated 04/27/23 @ 07:59 by Nya Singh CMA) Smoking packs per day: 2 Smoking cigarettes per day: 40.0 Years smoked: 20 Smoking pack-years: 40.00 Smoking status: Former smoker Tobacco type: cigarettes Smoking end date: 05/25/99 Alcohol intake: current Drinks per week: 7 Substance use: never Substance use type: does not use Lack of Transportation: No Lack of Food: Never True Current Housing: I Have Housing Concerned About Future Housing: No Difficulty Paying Gas/Electric Bills: No Difficulty Paying for Meds: No Currently Unemployed: No Education: Trade/Vocational Certificate Difficulty w/ Childcare or Family Care: No Living arrangements: with family Occupation/Education: occupation 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 HEAD: Normocephalic, atraumatic. ENT: Mucous membranes moist. CHEST: Clear to auscultation. No respiratory di
[2023-05-29 13:43] LABS: Appearance Urine Cloudy (Clear); Bacteria Urine None Seen /hpf; Bilirubin Urine Negative (Negative); Blood Urine Negative (Negative); Color Urine Yellow (Yellow); Glucose Urine UA Negative (Negative); Ketones Urine Negative (Negative); Leukocyte Esterase Ur Negative LEU/UL (Negative); Nitrate Urine Negative (Negative); Non Pathogenic Casts 0-2; Protein Urine Negative (Negative); RBC Urine 0-2 /hpf (0-2); Specific Grav Ur 1.009 (1.001-1.035); Squamous Epithelial Cell Urine None seen /hpf (Few); WBC Urine 0-5 /hpf; pH Urine 5.5 (5.0-9.0)
[2023-05-29 13:50] LABS: Add Urine Microscopic? YES
[2023-05-29 14:00] LABS: Basophils Absolute Auto 0.1 K/mm3 (0.0-0.1); Eosinophils Absolute Auto 0.3 K/mm3 (0-0.3); Eosinophils Percent Auto 4.2 % (0-4.4); Hematocrit 40.2 % (42.0-52.0); Hemoglobin 13.7 g/dL (14.0-18.0); Immature Granulocyte Absolute 0.04 K/mm3 (0.00-0.031); Immature Granulocyte Percent A 0.7 % (0-0.5); Lymphocytes Absolute Auto 1.76 K/mm3 (0.9-3.2); Lymphocytes Percent Auto 29.9 % (18.3-44.2); Mean Corpuscular HGB Conc 34.1 g/dl (32-36); Mean Corpuscular Hemoglobin 32.2 pg (26-34); Mean Corpuscular Volume 94.6 fl (80-100); Mean Platelet Volume 9.1 fl (7.4-10.4); Monocytes Absolute Auto 0.5 K/mm3 (0.1-0.6); Monocytes Percent Auto 8.1 % (2.6-8.5); Neutrophils Absolute Auto 3.3 K/mm3 (1.3-6.7); Neutrophils Percent Auto 56.1 % (45.5-73.1); Platelet Count Result 235 k/mm3 (150-375); Red Blood Count 4.25 M/mm3 (4.6-6.20); Red Cell Distribution Width 12.1 % (11.5-14.5); White Blood Count 5.9 K/mm3 (4.5-10.0)
[2023-05-29 14:12] LABS: Anion Gap 6 mmol/L (8-16); Blood Urea Nitrogen 26 mg/dL (9-20); Calcium 8.5 mg/dL (8.4-10.2); Carbon Dioxide 29 mmol/L (22-30); Chloride 98 mmol/L (98-107); Estimated CRCL calculation 83 ml/min; Estimated Glomerular Filt Rate > 60; Glucose 91 mg/dL (65-110); Potassium 4.4 mmol/L (3.4-5.0); Sodium 133 mmol/L (137-145)
[2023-05-29 15:29] VITALS: BP 121/88; PULSE 95; RESP 16; TEMP 36.4; O2SAT 99
--- NOTE | 2023-05-29 15:42 | PM.IMHP ---
H&P: HPI History of Present Illness Date/Time: 05/29/23 15:42 Chief Complaint: Back Pain, Difficulty with Urinating Narrative: 63 y/o M presents here with low back pain and difficulty urinating with PMH of spinal stenosis, BPH, GERD, arthritis, and anxiety. Patient reports that he has had difficulty with urination for the past 1-2 years and believed this was due to his prostate. Was being treated with Lasix and tamsulosin per patient with partial relief. However reports in the last 3-4 days he has had difficulty starting as well as maintaining a stream that is significantly worse than his baseline. Elected to be seen today due to inability to urinate and development of low back pain primarily on the left but also affecting the right. Describes the pain in his left lower back as a heavy sensation and more so tingling on the right. After arrival to the emergency department he was found to have urinary retention and Ahn was placed with greater than 400 mL of output. Reports lower back pain relief. Patient reports he had scheduled back surgery on Jun 30. Patient has had ongoing lower extremity numbness and pain, again primarily on the left. States if he stands for too long he will begin to have numbness in his left foot that will travel up his leg and then begin in his right leg with a similar pattern. Reports relief with sitting. Currently denying any fever, body aches, chills. No saddle anaesthesia, loss of bowel or bladder, new weakness/numbness pattern or severity in his lower extremities, beyond the current urinary retention. LBM 3 days ago, reports chronic constipation due to narcotic pain management. States he usually takes MiraLax and this will resolve but has not taken any as of yet. Review of Systems Review of Systems: All systems reviewed & are unremarkable except as noted in HPI and below PMFSH Past Medical History Medical History Anxiety Arthritis BPH (benign prostatic hyperplasia) Chronic narcotic use Chronic pain syndrome Depression DVT prophylaxis GERD (gastroesophageal reflux disease) HTN (hypertension) Obesity Surgical History Surgical History H/O rotator cuff surgery History of inguinal hernia repair History of neck surgery c4-c5 discectomy History of shoulder surgery bilateral Status post gastric banding Status post total right knee replacement 2019- Dr Fredy Family History Family History Father Colon cancer Grandparent Colon cancer Social History Social History Smoking packs per day: 2 Smoking cigarettes per day: 40.0 Years smoked: 20 Smoking pack-years: 40.00 Smoking status: Former smoker Alcohol intake: current Drinks per week: 7 Substance use: never Substance use type: does not use Do You Feel Safe in your Home?: Yes Lack of Transportation: No Lack of Food: Never True Current Housing: I Have Housing Concerned About Future Housing: No Difficulty Paying Gas/Electric Bills: No Difficulty Paying for Meds: No Currently Unemployed: No Education: Trade/Vocational Certificate Difficulty w/ Childcare or Family Care: No Living arrangements: with family 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
[2023-05-29 15:45] VITALS: BMI 34.2
--- NOTE | 2023-05-29 15:45 | ADMGEN ---
This patient, Jose Guadalupe Chavarria, was admitted to 3 [facility] Surg Room 325-02 @ 1545. Patient/family oriented to hospital policies and general routines including ID bracelet, bed and alarms, visiting hours, pain management, procedures, bathroom and other care routines, personal items, smoking policy, room service/diet, and visiting hours. Information on how to activate the Rapid Response Team has been discussed. Patient/Family are encouraged to report perceived risks to care and to ask questions if they do not understand what they are told or what they should do.
[2023-05-29 18:56] VITALS: BP 119/97; PULSE 74; RESP 16; TEMP 36.6; O2SAT 100
[2023-05-29] MEDS: DOCUSATE SODIUM 100 MG CAPSULE PO (20:17)
[2023-05-29 20:35] VITALS: BP 110/66; PULSE 90; RESP 16; TEMP 37; O2SAT 97
[2023-05-29] MEDS: CALCIUM CARBONATE (TUMS) 500 MG (200 MG ELEMENTAL) PO (22:08)
[2023-05-29] MEDS: ZOLPIDEM TARTRATE (*CRX) 5 MG TABLET 10 MG PO (22:09)
[2023-05-29] MEDS: ESCITALOPRAM OXALATE 10 MG TABLET PO (22:09)
[2023-05-30 05:15] VITALS: BP 119/74; PULSE 78; RESP 18; TEMP 37.3; O2SAT 98
[2023-05-30] MEDS: PANTOPRAZOLE 40 MG TABLET PO (10:12)
[2023-05-30] MEDS: CYCLOBENZAPRINE HCL 10 MG TABLET PO ×2 (10:12→22:01)
[2023-05-30] MEDS: FUROSEMIDE 20 MG TABLET PO ×2 (10:12→18:42)
[2023-05-30] MEDS: DICLOFENAC SOD 75 MG TABLET.EC PO ×2 (10:12→18:42)
[2023-05-30] MEDS: TAMSULOSIN HCL 0.4 MG CAPSULE PO (10:13)
[2023-05-30] MEDS: DOCUSATE SODIUM 100 MG CAPSULE PO ×2 (10:13→22:01)
[2023-05-30] MEDS: lisinopriL 10 MG TABLET PO (10:13)
[2023-05-30] MEDS: CALCIUM CARBONATE (TUMS) 500 MG (200 MG ELEMENTAL) PO (11:29)
[2023-05-30 14:00] VITALS: BP 96/68; PULSE 85; RESP 17; TEMP 35.8; O2SAT 97
--- NOTE | 2023-05-30 15:01 | WPDNEUROSGCN ---
Assessment and Plan Assessment and plan (1) Acute urinary retention: Code(s): R33.8 - Other retention of urine Status: Acute (2) Lumbar stenosis with neurogenic claudication: Code(s): M48.062 - Spinal stenosis, lumbar region with neurogenic claudication Status: Acute Plan Mr. Chavarria is a 63-year-old male with pre-existing urinary issues and neurogenic claudication who presented to the ER yesterday with 1 week of worsening low back pain and several days of worsening urinary retention. The ER placed a robles catheter witih 400cc out. He does not have any worsening of his lower-extremity symptoms and has been able to walk at his usual baseline ability. On physical exam, he has normal lower-extremity strength and sensation. MRI lumbar spine shows lumbar stenosis which is worst at L4-5 and is present at L2-3 as well as at L3-4 to a lesser degree. I was able to compare this to his MRI lumbar spine from November which appears the same. I do not see any acute pathology to explain his urinary symptoms, and the degree of stenosis is certainly no worse. I would anticipate that, if his urinary symptoms were related to his lumbar stenosis, he would have worsening lower-extremity symptoms or other focal neurologic deficit on exam. He does have some pre-existing urinary issues, so it is possible that this could be an exacerbation of this. It is also possible that his worsened back pain is creating some difficulty with urination. Regardless, I do not recommend emergent surgical intervention on his lumbar spine at this point. I understand that Urology consult is pending as well. We will see if they have other thoughts about his urinary issues. Consult date: 05/30/23 HPI: Jose Guadalupe Chavarria is a 63 year old male with history of urinary issues over the last couple years as well as neurogenic claudication who presented to the ER yesterday with 1 week of worsening lower back pain and several days of difficulty urinating. He is actually scheduled to have surgery on June [address] Gonzales for lumbar laminectomies for his neurogenic claudication. At baseline, he has progressive numbness in the legs with walking which resolves upon rest. He denies any worsening of his baseline lower-extremity symptoms. He denies any radicular leg pain or paresthesias at rest. He has no saddle anesthesia. He did not want anything to interfere with his ability to have surgery as scheduled, hence his presentation to urgent care then the ER yesterday. His back pain is much improved today. He notes a year or two of some urinary symptoms which have been treated with Lasix and Flomax. He has not seen a urologist for these issues to date. Review of Systems Review of Systems: All systems reviewed & are unremarkable except as noted in HPI and below PMFSH Past Medical History Medical History Anxiety Arthritis BPH (benign prostatic hyperplasia) Chronic narcotic use Chronic pain syndrome Depression DVT prophylaxis GERD (gastroesophageal reflux disease) HTN (hypertension) Obesity Surgical History Surgical History H/O rotator cuff surgery History of inguinal hernia repair History of neck surgery c4-c5 discectomy History of shoulder surgery bilateral Status post gastric banding Status post total right knee replacement 2019- Dr Daniel Family History Family History Father Colon cancer Grandparent Colon cancer Social History Social History Smoking packs per day: 2 Smoking cigarettes per day: 40.0 Years smoked: 20 Smoking pack-years: 40.00 Smoking status: Former smoker Alcohol intake: current Drinks per week: 7 Substance use: never Substance use type: does not use Do You Feel Safe in your Home?: Yes Lack of Transportation: No
--- NOTE | 2023-05-30 18:39 | PM.IMPN ---
Progress Note: A&P Assessment and Plan (1) Acute urinary retention: Code(s): R33.8 - Other retention of urine Status: Acute Assessment and Plan: DDx: UTI, worsening spinal stenosis, BPH UA: Cloudy otherwise unremarkable. EMickeyd. reached out to Neurosurgery, recommended MRI and admission for observation. No immediate decompression required. formal consult placed, awaiting recs. MRI of lumbar spine showed severe lumbar spondylosis, mild central canal stenosis through L1-S1, multiple areas of mild to moderate neural foraminal stenosis on L and R, bulging discs L1-S1. Will continue current home a pain regimen. Patient educated on signs and symptoms to alert staff to (i.e. Saddle anaesthesia, worsening numbness or tingling that is changed from his baseline, loss of bowel or bladder). Tamsulosin continued and Ahn in place. If there is suspicion for urinary retention not secondary to known/worsening spinal stenosis, consider consultation to Urology. -consult to Urology appreciate plan and recommendation (2) Spinal stenosis: Code(s): M48.00 - Spinal stenosis, site unspecified Status: Acute Assessment and Plan: Neurosurgery consulted appreciate recommendation and plan -initiate fall precautions -pain management every 4 hours - (3) HTN (hypertension): Code(s): I10 - Essential (primary) hypertension Status: Acute Assessment and Plan: Home medications resumed. Monitor. Plan Home Meds/Chronic Conditions - anxiety: Continue Lexapro - LE edema (no hx of HF per patient) - continue lasix - HTN: Continue lisinopril - insomnia: Continue Ambien 10 mg p.o. HS Diet: Heart healthy GI Prophylaxis: Continue home pantoprazole DVT Prophylaxis: SCDs, hold on pharmacological until further recommendations from Neurosurgery Lines: pIV Code Status: Full Code Subjective Date/time seen: 05/30/23 18:39 Interval history: 63 y/o M presents here with low back pain and difficulty urinating with PMH of spinal stenosis, BPH, GERD, arthritis, and anxiety. Patient reports that he has had difficulty with urination for the past 1-2 years and believed this was due to his prostate.? Was being treated with Lasix and tamsulosin per patient with partial relief.? However reports in the last 3-4 days he has had difficulty starting as well as maintaining a stream that is significantly worse than his baseline.? Elected to be seen today due to inability to urinate and development of low back pain primarily on the left but also affecting the right.? Describes the pain in his left lower back as a heavy sensation and more so tingling on the right.? After arrival to the emergency department he was found to have urinary retention and Ahn was placed with greater than 400 mL of output.? Reports lower back pain relief.? Patient reports he had scheduled back surgery on Jun 30.? Patient has had ongoing lower extremity numbness and pain, again primarily on the left.? States if he stands for too long he will begin to have numbness in his left foot that will travel up his leg and then begin in his right leg with a similar pattern.? Reports relief with sitting.? Currently denying any fever, body aches, chills.? No saddle anaesthesia, loss of bowel or bladder, new weakness/numbness pattern or severity in his lower extremities, beyond the current urinary retention. LBM 3 days ago, reports chronic constipation due to narcotic pain management.? States he usually takes MiraLax and this will resolve but has not taken any as of yet. 05/30/2023:pt seen today bedside, he is awake in no acute distress, denies any overnight c/o. He reports Ahn is patent denies any extreme discomfort states has a history urinary retention, he reports history of severe spinal stenosis, is currently managed with narcotics has ongoing history of constipation. He denies any bloody stools nausea vomiting or chest pain at this time. Review of Systems Re
[2023-05-30 22:00] VITALS: BP 104/80; PULSE 106; RESP 14; TEMP 36.6; O2SAT 95
[2023-05-30] MEDS: HYDROcodone/acetaminophen (*CRX) 10-325 MG TABLET PO (22:01)
[2023-05-30] MEDS: ESCITALOPRAM OXALATE 10 MG TABLET PO (22:01)
[2023-05-30] MEDS: ZOLPIDEM TARTRATE (*CRX) 5 MG TABLET 10 MG PO (22:01)
[2023-05-31 06:00] VITALS: BP 112/81; PULSE 97; RESP 14; TEMP 36.4; O2SAT 99
--- NOTE | 2023-05-31 08:42 | PM.IMPN ---
Subjective Date/time seen: 05/31/23 08:42 Objective Data Vital Signs Vital Signs: Vital Signs - 24 hr 05/30/23 14:00 05/30/23 22:00 05/31/23 06:00 Temperature 96.5 F L 97.8 F 97.6 F Pulse Rate 85 106 H 97 Respiratory Rate 17 14 14 Blood Pressure 96/68 L 104/80 112/81 Pulse Oximetry 97 95 99 Intake/Output Intake/Output: Intake & Output 05/28/23 05/29/23 05/30/23 05/31/23 23:59 23:59 23:59 23:59 Intake Total 400 1542 Output Total 850 2250 450 Balance -450 -708 -450 Meds/Results Medications: Active Medications Generic Name Dose Route Start Last Admin Trade Name Freq PRN Reason Stop Dose Admin Acetaminophen 650 mg 05/29/23 13:55 Acetaminophen 325 Mg Tablet PO Q4H PRN Mild Pain (1-3) or Fever Hydrocodone Bitart/Acetaminophen 10 - 325 tab 05/29/23 20:51 05/30/23 22:01 Hydrocodone/Acetaminophen (*Crx) 10-325 Mg Tablet PO 1 tab QID PRN Administration Back Pain Calcium Carbonate 200 mg 05/29/23 21:59 05/30/23 11:29 Calcium Carbonate (Tums) 500 Mg (200 Mg Elemental) PO 200 mg Q6H PRN Administration Indigestion Cyclobenzaprine HCl 10 mg 05/29/23 20:51 05/30/23 22:01 Cyclobenzaprine Hcl 10 Mg Tablet PO 10 mg QID PRN Administration Muscle Spasm Diclofenac Sodium 75 mg 05/30/23 09:00 05/30/23 18:42 Diclofenac Sod 75 Mg Tablet.Ec PO 75 mg BID MERCEDES Administration Docusate Sodium 100 mg 05/29/23 21:00 05/30/23 22:01 Docusate Sodium 100 Mg Capsule PO 100 mg Q12HR MERCEDES Administration Escitalopram Oxalate 10 mg 05/29/23 21:00 05/30/23 22:01 Escitalopram Oxalate 10 Mg Tablet PO 10 mg QHS MERCEDES Administration Furosemide 20 mg 05/30/23 09:00 05/30/23 18:42 Furosemide 20 Mg Tablet PO 20 mg BID MERCEDES Administration Lisinopril 10 mg 05/30/23 09:00 05/30/23 10:13 Lisinopril 10 Mg Tablet PO 10 mg QAM MERCEDES Administration Morphine Sulfate 2 mg 05/29/23 13:55 Morphine Sulfate (*Crx) 2 Mg/Ml Inj IV PUSH Q2H PRN Pain Rated 7-10 Ondansetron HCl 4 mg 05/29/23 13:55 Ondansetron Inj 4 Mg/2 Ml Vial IV PUSH Q4H PRN Nausea Pantoprazole Sodium 40 mg 05/30/23 09:00 05/30/23 10:12 Pantoprazole 40 Mg Tablet PO 40 mg DAILY MERCEDES Administration Tamsulosin HCl 0.4 mg 05/30/23 09:00 05/30/23 10:13 Tamsulosin Hcl 0.4 Mg Capsule PO 0.4 mg DAILY MERCEDES Administration Zolpidem Tartrate 10 mg 05/29/23 21:00 05/30/23 22:01 Zolpidem Tartrate (*Crx) 5 Mg Tablet PO 10 mg QHS MERCEDES Administration Radiology Results: ITS Impressions Lumbar Spine MRI 05/29/23 18:22 IMPRESSION: 1. Severe lumbar spondylosis.
[2023-05-31] MEDS: TAMSULOSIN HCL 0.4 MG CAPSULE PO (09:00)
[2023-05-31] MEDS: lisinopriL 10 MG TABLET PO (09:00)
[2023-05-31] MEDS: DICLOFENAC SOD 75 MG TABLET.EC PO ×2 (09:00→16:23)
[2023-05-31] MEDS: DOCUSATE SODIUM 100 MG CAPSULE PO (09:00)
[2023-05-31] MEDS: PANTOPRAZOLE 40 MG TABLET PO (09:00)
[2023-05-31] MEDS: FUROSEMIDE 20 MG TABLET PO ×2 (09:00→16:23)
--- NOTE | 2023-05-31 09:07 | WPDURCON ---
Assessment and Plan Assessment and plan (1) BPH loc w urin obs/LUTS: Code(s): N40.1 - Benign prostatic hyperplasia with lower urinary tract symptoms Status: Acute (2) Urinary retention: Code(s): R33.9 - Retention of urine, unspecified Status: Acute Assessment and Plan: Urinary retention due to underlying BPH complicated by constipation, adverse effects normal detrusor function by chronic analgesics lumbar urological pain/spinal stenosis. Comfortable with discharge with a leg bag, especially since his constipation seems to have resolved. Tamsulosin to b.i.d. and add Finasteride for BPH. F/U in our office tomorrow for catheter removal/voiding trial. New rx. for meds and instructions for Ahn catheter/ catheter removal placed in discharge orders. Urology Consult Note HPI Date Seen: 05/31/23 Requesting Physician: Kayla Ivy MD Primary Care Provider: Tali Bailey APRN Consult Narrative Narrative: Jose Guadalupe Chavarria is a 63 year old male, previously unknown to our practice, who reports being on tamsulosin for several years. He presents today S night with acute urinary retention after a several-day struggle with constipation. He also has recent problems with significant musculoskeletal based low back pain and is on the for pain management. A Ahn catheter was placed without difficulty and he was admitted. Overnight his issues with constipation have resolved. Review of Systems Cardiovascular: Cardiovascular: Denies chest pain, Denies lightheadedness, Denies palpitations and Denies dyspnea Respiratory: Respiratory: Denies dyspnea Gastrointestinal: Gastrointestinal: Denies diarrhea, Denies nausea and Denies vomiting Genitourinary: Genitourinary: Denies hematuria and Denies dysuria Endocrine: Endocrine: Denies palpitations [facility] Past Medical History Medical History Anxiety Arthritis BPH (benign prostatic hyperplasia) Chronic narcotic use Chronic pain syndrome Depression DVT prophylaxis GERD (gastroesophageal reflux disease) HTN (hypertension) Obesity Surgical History Surgical History H/O rotator cuff surgery History of inguinal hernia repair History of neck surgery c4-c5 discectomy History of shoulder surgery bilateral Status post gastric banding Status post total right knee replacement 2019- Dr Daniel Family History Family History Father Colon cancer Grandparent Colon cancer Social History Social History Smoking packs per day: 2 Smoking cigarettes per day: 40.0 Years smoked: 20 Smoking pack-years: 40.00 Smoking status: Former smoker Alcohol intake: current Drinks per week: 7 Substance use: never Substance use type: does not use Do You Feel Safe in your Home?: Yes Lack of Transportation: No Lack of Food: Never True Current Housing: I Have Housing Concerned About Future Housing: No Difficulty Paying Gas/Electric Bills: No Difficulty Paying for Meds: No Currently Unemployed: No Education: Trade/Vocational Certificate Difficulty w/ Childcare or Family Care: No Living arrangements: with family 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
--- NOTE | 2023-05-31 13:03 | PM.DS ---
DS: Admitting Diagnosis Discharge Date 05/31/2023 Admitting Diagnosis Urinary retention DS: Summary Hospital Course Reason for hospitalization: 63 y/o M presents here with low back pain and difficulty urinating with PMH of spinal stenosis, BPH, GERD, arthritis, and anxiety. Hospital Course: Patient reports that he has had difficulty with urination for the past 1-2 years and believed this was due to his prostate.? Was being treated with Lasix and tamsulosin per patient with partial relief.? However reports in the last 3-4 days he has had difficulty starting as well as maintaining a stream that is significantly worse than his baseline.? Elected to be seen today due to inability to urinate and development of low back pain primarily on the left but also affecting the right.? Describes the pain in his left lower back as a heavy sensation and more so tingling on the right.? After arrival to the emergency department he was found to have urinary retention and Robles was placed with greater than 400 mL of output.? Reports lower back pain relief.? Patient reports he had scheduled back surgery on Jun 30.? Patient has had ongoing lower extremity numbness and pain, again primarily on the left.? States if he stands for too long he will begin to have numbness in his left foot that will travel up his leg and then begin in his right leg with a similar pattern.? Reports relief with sitting.? Currently denying any fever, body aches, chills.? No saddle anaesthesia, loss of bowel or bladder, new weakness/numbness pattern or severity in his lower extremities, beyond the current urinary retention. LBM 3 days ago, reports chronic constipation due to narcotic pain management.? States he usually takes MiraLax and this will resolve but has not taken any as of yet. Interval Hx: 05/30/2023:pt seen today bedside, he is awake in no acute distress, denies any overnight c/o. He reports Robles is patent denies any extreme discomfort states has a history urinary retention, he reports history of severe spinal stenosis, is currently managed with narcotics has ongoing history of constipation.? He denies any bloody stools nausea vomiting or chest pain at this time. 05/31/2023: pt seen today, he is lying in bed in no acute distress denies any c/o at this time. Pt reports he has been evaluated by the urologist and a plan for him to discharge today has been made. He states he will follow up in the a.m. for Robles removal. no other c/o at this time. I will plan to have CBC, CMP, drawn before pt is discharged. Status at Discharge Functional status at discharge: independent ambulation Overall status at discharge: patient is progressing back to baseline Time Spent with Patient Time attestation: Total time spent providing and/or coordinating discharge services: Time spent: Less than 30 minutes Exam Narrative: General: A well-developed, nontoxic-appearing gentleman lying in bed with eyes closed easily arousable HEENT: PERRL, EOMI. Sclera anicteric. Oral mucosa moist. Neck: Supple. No midline cervical tenderness. Respiratory: Respirations are non- labored and lungs are clear to auscultation bilaterally. Cardiovascular: Regular rate and rhythm with S1-S2. Gastrointestinal: Abdomen is soft, non-tender, and non-distended with positive bowel sounds. Skin: Warm and dry. No rash or lesions on limited exam. Extremities: No cyanosis, clubbing, or edema. Radial and pedal pulses intact. Neurological: Alert and oriented. Cranial nerves 2-12 are grossly intact. No gross focal deficits to casual conversation. Psychiatric: Pleasant and cooperative with normal mood and affect. Judgment and insight intact. : robles is patent with dark yellow urine 100ML Const: General: comfortable and no acute distress HENMT: Ears: TM's normal bilaterally Face/Nose/Sinus: Normal nares present Mouth: Yes moist mucous membranes Eyes: General: appearance normal, both eyes and all related structures Sclera: sclerae
[2023-05-31 13:17] LABS: Basophils Absolute Auto 0.1 K/mm3 (0.0-0.1); Eosinophils Absolute Auto 0.2 K/mm3 (0-0.3); Eosinophils Percent Auto 3.3 % (0-4.4); Hemoglobin 13.1 g/dL (14.0-18.0); Immature Granulocyte Absolute 0.04 K/mm3 (0.00-0.031); Immature Granulocyte Percent A 0.7 % (0-0.5); Lymphocytes Absolute Auto 1.41 K/mm3 (0.9-3.2); Lymphocytes Percent Auto 24.5 % (18.3-44.2); Mean Corpuscular HGB Conc 32.8 g/dl (32-36); Mean Corpuscular Hemoglobin 32.3 pg (26-34); Mean Corpuscular Volume 98.5 fl (80-100); Mean Platelet Volume 9.2 fl (7.4-10.4); Monocytes Absolute Auto 0.5 K/mm3 (0.1-0.6); Monocytes Percent Auto 9.2 % (2.6-8.5); Neutrophils Absolute Auto 3.5 K/mm3 (1.3-6.7); Neutrophils Percent Auto 61.3 % (45.5-73.1); Platelet Count Result 205 k/mm3 (150-375); Red Blood Count 4.06 M/mm3 (4.6-6.20); Red Cell Distribution Width 12.2 % (11.5-14.5); White Blood Count 5.8 K/mm3 (4.5-10.0)
[2023-05-31 13:32] LABS: Alanine Aminotransferase 14 U/L (6-50); Albumin Level 3.3 g/dL (3.5-5.1); Alkaline Phosphatase 59 U/L (38-126); Anion Gap 2 mmol/L (8-16); Aspartate Amino Transferase 20 U/L (17-59); Bilirubin,Total 0.6 mg/dL (0.2-1.3); Blood Urea Nitrogen 16 mg/dL (9-20); Calcium 8.3 mg/dL (8.4-10.2); Carbon Dioxide 33 mmol/L (22-30); Chloride 103 mmol/L (98-107); Estimated CRCL calculation 82 ml/min; Estimated Glomerular Filt Rate > 60; Glucose 97 mg/dL (65-110); Sodium 138 mmol/L (137-145)
[2023-05-31 14:00] VITALS: BP 100/87; PULSE 88; RESP 20; TEMP 36.1; O2SAT 99
== END 2023-05-31 17:30 | disposition home or self-care (01) ==
LOC: ANHED 13:01 → ANH3MEDSUR 17:09
PROVIDERS: Admitting Provider General Practice; Emergency Provider Emergency Medicine; PCP Nurse Practitioner Adult Health; Visit Provider Nurse Practitioner
DX: N40.1 Benign prostatic hyperplasia with lower urinary tract symptoms (principal); R33.9 Retention of urine, unspecified; M47.16 Other spondylosis with myelopathy, lumbar region; M48.062 Spinal stenosis, lumbar region with neurogenic claudication; F41.9 Anxiety disorder, unspecified; F32.A Depression, unspecified; G89.4 Chronic pain syndrome; K21.9 Gastro-esophageal reflux disease without esophagitis; K59.00 Constipation, unspecified; M19.90 Unspecified osteoarthritis, unspecified site; Z87.891 Personal history of nicotine dependence; F10.90 Alcohol use, unspecified, uncomplicated; Z79.891 Long term (current) use of opiate analgesic; Z79.899 Other long term (current) drug therapy
CPT/HCPCS: 36415; 72158; 80048; 80053; 81001; 85025; 99285; A9270; A9577; G0378

== ENCOUNTER 2023-06-24 09:37 | Outpatient (CLI) | payer OTHER, SELFPAY ==
--- NOTE | 2023-06-24 09:48 | ECG_ITS ---
Measurements Intervals Sidman Rate: 78 P: 38 AL: 166 QRS: 3 QRSD: 110 T: 4 QT: 346 QTc: 396 Interpretive Statements SINUS RHYTHM WITH MARKED SINUS ARRHYTHMIA BASELINE ARTIFACT- I, II, III, AVR, AVL, AVF NORMAL ECG COMPARED TO ECG 11/26/2021 10:37:15 SINUS RHYTHM NOW PRESENT SINUS ARRHYTHMIA NOW PRESENT Electronically Signed On 06-24-2023 11:07:23 BANANA CARRIER by Luke Sepulveda D.O.
[2023-06-24 10:17] LABS: Prothrombin Time 13.2 Seconds (11.1-14.7)
[2023-06-24 10:18] LABS: Partial Thromboplastin Time 31.7 SECONDS (22.3-36.8)
== END 2023-06-24 09:38 | disposition home or self-care (01) ==
LOC: ANHSURGERY 09:42
PROVIDERS: PCP Nurse Practitioner Adult Health; Visit Provider Neurological Surgery
DX: Z01.818 Encounter for other preprocedural examination (principal); M48.062 Spinal stenosis, lumbar region with neurogenic claudication; I10 Essential (primary) hypertension
CPT/HCPCS: 36415; 85610; 85730; 93005

== ENCOUNTER 2023-06-30 00:21 | Day surgery (SDC) | payer OTHER, SELFPAY ==
[2023-06-19 14:19] VITALS: BMI 32.6
--- NOTE | 2023-06-19 14:28 | PC.NURSE ---
Report to the Outpatient Waiting Room, entrance under the green pavilion located off [facility], at time 6:00 on date 06/30/23. Planned Procedure Time: 7:30. Time changes happen often and if your time is changed the preop area will call you the afternoon before. - You and your visitor will be asked to self-screen and do not enter if you have any COVID symptoms. - A mask is optional within the hospital at this time. Patients may have clear liquids (water, carbonated beverages, clear teas, apple juice) until 3 hours prior to surgery (4:30) with a maximum of 20 ounces. - No food from midnight until time of surgery Take the following medications with a SIP of water the morning of surgery: PAIN PILL IF NEEDED DO NOT STOP ANY OF YOUR OTHER PRESCRIPTION MEDICATIONS PRIOR TO SURGERY ?EXCEPT THE FOLLOWING Medications to discontinue per physician: DICLOFENAC Date to take last dose: PER DR. SANDERSON Please no make-up, nail libyan, hairspray, perfume, deodorant, or body powder the day of surgery. No jewelry (including any body piercings) or valuables the day of surgery, leave them at home. Please take a shower or bath the night before, or the morning of, surgery with an antibacterial soap. Wear comfortable, loose fitting clothing. - Jewelry must be removed prior to entering the operating room. Rings and piercings that are not removed may be cut off. - The hospital will not accept responsibility for valuables. - Please leave all valuables, including medications, at home the day of surgery. If you are going home after surgery, a licensed driver material handler must drive you home. - NO public transportation without another adult if you receive anesthesia. - We recommend that an adult stay with you for 24 hours following discharge. - We also recommend that you do not drive, make important decision, drink alcoholic beverages, or take any drugs that were not prescribed by your health care provider for at least 24 hours after your discharge time. Follow any additional instructions given to you from your surgeon. If you or anyone in your household have experienced Covid symptoms in the past week, please notify your surgeon or the nurse liaison at the phone number below for possible testing. Telephone instructions given to PT - SYLWIA FLYNN and asked if any additional questions and then verbalized understanding. Patient advised to call surgeon office or pre surgery nurse liaison [phone] if any additional questions.
--- NOTE | 2023-06-29 15:22 | WPDANESEPPF ---
Anes - Initial Pre Proc Eval Procedure: Operation Date: 06/30/23 07:30 Proposed Procedures p L2-5 Lumbar Laminectomy - Arjun Gonzales MD Date/Time: 06/29/23 15:22 Surgeon: Arjun Gonzales MD Pre Op Diagnosis: lumbar stenosis L2-5 Patient Data Age: 63 Gender: M Height: 1.75 m Weight: 100.25 kg Allergies Allergy/AdvReac Type Severity Reaction Status Date / Time No Known Allergies Allergy Verified 06/30/23 06:36 Home Medications Medication Instructions Recorded Confirmed Type cyclobenzaprine 10 mg tablet 10 mg PO QID PRN Muscle Spasm 05/29/23 06/30/23 History diclofenac sodium 75 mg 75 mg PO BID 05/29/23 06/30/23 History tablet,delayed release escitalopram oxalate 10 mg tablet 10 mg PO QHS 05/29/23 06/30/23 History furosemide 20 mg tablet 20 mg PO BID 05/29/23 06/30/23 History hydrocodone 10 mg-acetaminophen 10 - 325 tablet PO QID PRN Back 05/29/23 06/30/23 History 325 mg tablet Pain lisinopril 10 mg tablet 10 mg PO QAM 05/29/23 06/30/23 History pantoprazole 40 mg tablet,delayed 40 mg PO DAILY 05/29/23 06/30/23 History release finasteride 1 mg tablet 1 mg PO DAILY #30 tabs 05/31/23 06/30/23 Rx tamsulosin 0.4 mg capsule 0.4 mg PO BID #60 caps 05/31/23 06/30/23 Rx zolpidem 10 mg tablet 10 mg PO QHS #30 tabs 06/03/23 06/30/23 Rx Patient hx anesthesia problems: none Family hx anesthesia problems: none Results Review: All pre-operative results and documents have been reviewed as part of the pre-operative evaluation. [facility] Past Medical History Medical History Anxiety Arthritis BPH (benign prostatic hyperplasia) Chronic narcotic use Chronic pain syndrome Depression DVT prophylaxis GERD (gastroesophageal reflux disease) HTN (hypertension) Obesity Surgical History Surgical History H/O rotator cuff surgery History of inguinal hernia repair History of neck surgery c4-c5 discectomy History of shoulder surgery bilateral Status post gastric banding Status post total right knee replacement Dr Daniel Family History Family History Father Colon cancer Grandparent Colon cancer Social History Social History Smoking packs per day: 2 Smoking cigarettes per day: 40.0 Years smoked: 20 Smoking pack-years: 40.00 Smoking status: Former smoker Tobacco type: cigarettes Smoking end date: 05/25/99 Alcohol intake: current Drinks per week: 7 Alcohol use details: WINE WITH DINNER Substance use: never Substance use type: does not use Do You Feel Safe in your Home?: Yes Lack of Transportation: No Lack of Food: Never True Current Housing: I Have Housing Concerned About Future Housing: No Difficulty Paying Gas/Electric Bills: No Difficulty Paying for Meds: No Currently Unemployed: No Education: Trade/Vocational Certificate Difficulty w/ Childcare or Family Care: No Living arrangements: with family Occupation/Education: occupation 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 Informed Consent: The patient's anesthetic plan and its attendant risks and benefits were discussed with the patient/family/POA. Questions were solicited a
[2023-06-30] VITALS (13 sets, daily range): BP systolic 98–132; BP diastolic 57–85; PULSE 93–108; RESP 12–20; TEMP 36.1–36.9; O2SAT 95–100
--- NOTE | ~2023-06-30 | XR_ITS ---
EXAMINATION: XR fluoroscopy no charge DATE: 06/30/2023 10:30 INDICATION: L2-L5 laminectomy TECHNIQUE: Single lateral fluoroscopic spot image of the lower lumbar spine was obtained during proce dure performed by Dr. Gonzales. Radiologist was not present for the imaging or procedure. The amount of fluoroscopy time used during this procedure was 0.1 minutes. COMPARISON: MR dated 05/29/2023 FINDINGS: Lap sponge with markers, soft tissue retractors and a metallic probe projects over the soft tissues posterior to the lower lumbar spine. There is moderate to severe lower lumbar spondylosis. IMPRESSION: 1. Fluoroscopy utilized during neurosurgical procedure at the lower lumbar spine. See procedure note for further detail. Reviewed, dictated and finalized at location A. SEWER IMPRESSION: 1. Fluoroscopy utilized during neurosurgical procedure at the lower lumbar spin e. See procedure note for further detail.
[2023-06-30] MEDS: LACTATED RINGERS 1,000 ML 30 ML IV CONT ×2 (06:50→10:07)
--- NOTE | 2023-06-30 07:47 | PM.IMHP ---
H&P: HPI History of Present Illness Date/Time: 06/30/23 07:47 Chief Complaint: Neurogenic claudication Narrative: Jose Guadalupe is a 63-year-old gentleman with back and leg pain have a claudicatory nature related to spinal stenosis presents for decompression. He has not changed appreciably since we last saw him. He does not have any bowel or bladder difficulty or constitutional problems. He does not have specific muscle group weakness or dermatomal numbness. Review of Systems Review of Systems: Patient denies shortness of breath, cough, fever, chills, nausea, vomiting, weight loss, weight gain, chest pain, dysuria. He has back and leg pain as above. His review of systems otherwise negative on 12 systems except as noted elsewhere. [facility] Past Medical History Medical History Anxiety Arthritis BPH (benign prostatic hyperplasia) Chronic narcotic use Chronic pain syndrome Depression DVT prophylaxis GERD (gastroesophageal reflux disease) HTN (hypertension) Obesity Surgical History Surgical History H/O rotator cuff surgery History of inguinal hernia repair History of neck surgery c4-c5 discectomy History of shoulder surgery bilateral Status post gastric banding Status post total right knee replacement 2019- Dr Daniel Family History Family History Father Colon cancer Grandparent Colon cancer Social History Social History Smoking packs per day: 2 Smoking cigarettes per day: 40.0 Years smoked: 20 Smoking pack-years: 40.00 Smoking status: Former smoker Tobacco type: cigarettes Smoking end date: 05/25/99 Alcohol intake: current Drinks per week: 7 Alcohol use details: WINE WITH DINNER Substance use: never Substance use type: does not use Do You Feel Safe in your Home?: Yes Lack of Transportation: No Lack of Food: Never True Current Housing: I Have Housing Concerned About Future Housing: No Difficulty Paying Gas/Electric Bills: No Difficulty Paying for Meds: No Currently Unemployed: No Education: Trade/Vocational Certificate Difficulty w/ Childcare or Family Care: No Living arrangements: with family Occupation/Education: occupation 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 Gender identity (if verbalized by the patient): Male Spiritual care concerns: No Meds Home Medications and Allergies Home Medications Medication Instructions Recorded Confirmed Type cyclobenzaprine 10 mg tablet 10 mg PO QID PRN Muscle Spasm 05/29/23 06/30/23 History diclofenac sodium 75 mg 75 mg PO BID 05/29/23 06/30/23 History tablet,delayed release escitalopram oxalate 10 mg tablet 10 mg PO QHS 05/29/23 06/30/23 History furosemide 20 mg tablet 20 mg PO BID 05/29/23 06/30/23 History hydrocodone 10 mg-acetaminophen 10 - 325 tablet PO QID PRN Back 05/29/23 06/30/23 History 325 mg tablet Pain lisinopril 10 mg tablet 10 mg PO QAM 05/29/23 06/30/23 History pantoprazole 40 mg tablet,delayed 40 mg PO DAILY 05/29/23 06/30/23 History release finasteride 1 mg tablet 1 mg PO DAILY #30 tabs 05/31/23 06/30/23 Rx tamsulosin 0.4 mg capsule 0.4 mg PO BID #60 caps 05/31/23 06/30/23 Rx zolpidem 10 mg tablet 10 mg PO QHS #30 tabs 06/03/23 06/30/23 Rx Allergies Allergy/AdvReac Type Severity Reaction Status Date / Time No Known Allergies Allergy Verified 06/30/23 06:36 Vital Signs Vital Signs - 24 hr 06/30/23 06:48 Temperature 97.5 F L Pulse Rate 93 Respiratory Rate 18 Blood Pressure 132/85 Pulse Oximetry 100 Oxygen Delivery Room Air Exam Narrative: Strength is 5/5 in all muscle groups of the bilateral lower extremities. Sensation is intact to light touch throughout the lower extremities. Breathing is nonlabored Regular
--- NOTE | 2023-06-30 07:50 | WPDHPUPDATE1 ---
History and Physical Update Update Date/Time: 06/30/23 07:50 History and Physical has been reviewed, including an updated exam of the patient. There are NO changes in the patient's condition. Risks, benefits, and alternatives have been discussed and questions answered. Patient agrees to proceed with procedure.
[2023-06-30] MEDS: ceFAZolin 2 GM/D5W 50 ML 2 GM/50 ML BAG IVPB (07:57)
[2023-06-30] MEDS: LIDO 1%/EPINEPHRINE 1:100,000 20 ML VIAL 10 ML INFILTRATE (08:34)
--- NOTE | 2023-06-30 09:29 | SUR.OPER ---
preop noted +1 pitting edema bilateral ankles greater in left, +5 foot flextion extension, + sensation all toes, = leg lift bilateral
[2023-06-30] MEDS: fentaNYL CITRATE INJ (*CRX) 100 MCG/2 ML VIAL 25 MCG IV PUSH ×8 (10:09→10:30)
--- NOTE | 2023-06-30 10:10 | P.OP_ITS ---
Procedure Note - Detailed Date of Procedure 06/30/23 Pre-op Diagnosis lumbar stenosis L2-5 Post-op Diagnosis Same Procedure Performed L2-5 laminectomy Surgeon Arjun Gonzales MD Anesthesia General Description of Procedure Patient was brought to the operating room in the supine position, was sedated, intubated and placed under general anesthesia in routine fashion. Was then turned into the prone position on a Vicente frame. The operation was back was examined, marked for incision, prepped and draped in routine sterile fashion. Incision was marked over the L2-3 5 spinous processes in the midline. This area was injected with 0.5% lidocaine with [id number] epinephrine. Intravenous antibiotics given prior to incision. Incision was made with a 10 blade scalpel down to the lumbodorsal fascia. A subperiosteal dissection of the muscle soft tissue away from the spinous process and lamina was performed with a subperiosteal elevator and Bovie cautery. A verifying x-rays obtained to verify the level of operation. A Radha rongeur was used to all removed spinous processes at L2-4 at the bottom of L5. A Midas Devon drill with an Angostura bit was used to thin the lamina in the midline and the soft contents of the canal were encountered. Kerrison punches and curved curettes were used to define a plane with the dura and removed bone and ligament in the midline exposing the dura. In the lateral recess a curved curette was used to define a plane with the during Kerrison punches were used to remove a dditional bone and ligament overgrown lateral recess starting superiorly and working inferiorly until on a dental instrument could be placed in the lateral epidural space to confirm lack compression bilaterally at L2-5. The wound was then copiously irrigated with bacitracin irrigation all bleeding stopped with bipolar and Bovie cautery and Gelfoam thrombin powder. The wound was then closed in layered fashion with 2-0 Vicryl interrupted sutures in the lumbodorsal fascia and Jone's layer. 3-0 Vicryl buried interrupted sutures placed in the dermis and skin was closed with a running 4-0 Monocryl subcuticular stitch and dressed with Dermabond. The patient was allowed to wake up in the operating room and was taken to the recovery room in stable condition. There were no immediate complications of this operation. All counts were reported correct in the case. Blood loss was Um 50 cc. The patient was neurologically at his baseline postoperatively. CPT codes: 31787, 63015 X 3. Estimated Blood Loss 50 IV Fluids 1,000 Drains Yes Complications None Condition Stable Disposition PACU [facility] Billing Surgery - Charge Forward: Surgery Billing
[2023-06-30] MEDS: HYDROmorphone HCL INJ (*CRX) 1 MG/ML SYR 0.5 MG IV PUSH (11:05)
--- NOTE | 2023-06-30 11:35 | ADMGEN ---
This patient, Jose Guadalupe Chavarria, was admitted to 2 Medical Room 251-. Patient/family oriented to hospital policies and general routines including ID bracelet, bed and alarms, visiting hours, pain management, procedures, bathroom and other care routines, personal items, smoking policy, room service/diet, and visiting hours. Information on how to activate the Rapid Response Team has been discussed. Patient/Family are encouraged to report perceived risks to care and to ask questions if they do not understand what they are told or what they should do.
[2023-06-30] MEDS: HYDROcodone/acetaminophen (*CRX) 10-325 MG TABLET 1 TAB PO ×4 (12:02→23:50)
[2023-06-30] MEDS: KCL 20 MEQ/D5/0.45% SOD CHL 1,000 ML 100 ML IV CONT (12:03)
[2023-06-30] MEDS: CYCLOBENZAPRINE HCL 10 MG TABLET PO ×2 (14:25→21:32)
[2023-06-30] MEDS: ceFAZolin 1 GM/NS 50 ML 1 GM/50 ML BAG IVPB ×2 (15:29→23:50)
[2023-06-30] MEDS: FUROSEMIDE 20 MG TABLET PO (16:37)
[2023-06-30] MEDS: TAMSULOSIN HCL 0.4 MG CAPSULE PO (16:37)
[2023-06-30] MEDS: ZOLPIDEM TARTRATE (*CRX) 5 MG TABLET 10 MG PO (21:32)
[2023-06-30] MEDS: DOCUSATE SODIUM 100 MG CAPSULE PO (21:32)
[2023-06-30] MEDS: ESCITALOPRAM OXALATE 10 MG TABLET PO (21:32)
[2023-07-01] MEDS: KCL 20 MEQ/D5/0.45% SOD CHL 1,000 ML 100 ML IV CONT (02:10)
--- NOTE | 2023-07-01 02:10 | PC.NURSE ---
PT HAD SOFT BP INCREASED FLUIDS FROM 3OML BACK TO 100ML.
[2023-07-01 02:14] VITALS: BP 90/40; PULSE 72; RESP 17; TEMP 36.6; O2SAT 98
[2023-07-01 05:59] VITALS: BP 106/65
[2023-07-01] MEDS: HYDROcodone/acetaminophen (*CRX) 10-325 MG TABLET 1 TAB PO ×3 (05:59→15:01)
[2023-07-01 06:10] VITALS: BP 118/69; PULSE 72; RESP 18; TEMP 36.3; O2SAT 100
--- NOTE | 2023-07-01 08:05 | WPDANESPN ---
Anes - Prog Note Post-Op Date/Time: 07/01/23 08:05 Cardiovascular status: normal Respiratory status: normal Airway patency: baseline Mental status: baseline Post-Op hydration status: normal Vital Signs: Last Vital Signs Temp 36.3 C L 07/01/23 06:10 Pulse 72 07/01/23 06:10 Resp 18 07/01/23 06:10 BP 118/69 07/01/23 06:10 Pulse Ox 100 07/01/23 06:10 O2 Del Method Room Air 06/30/23 21:43 O2 Flow Rate 3 06/30/23 11:07 Pain Score (VAS): I/O: Intake & Output 06/30/23 07/01/23 07/01/23 23:59 07:59 15:59 Intake Total 790 1300 Output Total 650 50 Balance 140 1250 Post-procedural complaints: none Patient Feedback: Patient satisfied with anesthetic care.
[2023-07-01] MEDS: PANTOPRAZOLE 40 MG TABLET PO (08:51)
[2023-07-01] MEDS: lisinopriL 10 MG TABLET PO (08:51)
[2023-07-01] MEDS: TAMSULOSIN HCL 0.4 MG CAPSULE PO (08:51)
[2023-07-01] MEDS: ceFAZolin 1 GM/NS 50 ML 1 GM/50 ML BAG IVPB (08:51)
[2023-07-01] MEDS: FUROSEMIDE 20 MG TABLET PO (08:51)
[2023-07-01] MEDS: DOCUSATE SODIUM 100 MG CAPSULE PO (08:51)
[2023-07-01] MEDS: CYCLOBENZAPRINE HCL 10 MG TABLET PO ×2 (09:06→15:01)
[2023-07-01 11:47] VITALS: BP 100/65; PULSE 97; RESP 18; TEMP 36.3; O2SAT 98
--- NOTE | 2023-07-01 12:32 | WPDNEUROSGPN ---
Progress Note: A&P Assessment and Plan (1) Postoperative visit: Code(s): Z48.89 - Encounter for other specified surgical aftercare Status: Acute (2) Lumbar stenosis with neurogenic claudication: Code(s): M48.062 - Spinal stenosis, lumbar region with neurogenic claudication Status: Acute Plan Lumbar stenosis, POD#1 L2-5 laminectomies for decompression Patient is doing well. We discussed post-op recovery and expectations. Plan: drain dc'd can work with therapy again this afternoon vs discharge home after lunch. Patient states he has plenty of hydrocodone and flexeril at home and does not need eRX. F/u with us in 6 weeks. Subjective Date/time seen: 07/01/23 12:32 Interval history: Denies any new symptoms since surgery, c/o expected back pain. Did well with therapies this am. Exam Const: Other: GENERAL: The patient appears well-nourished, well-developed, and in no acute distress SKIN: lumbar incision is clean / dry / intact with skin glue NEUROLOGIC EXAMINATION: Mental status: Patient is awake, alert, and oriented to person place and time. Speech is clear and fluent. Motor: Strength is 5/5 in bilateral lower extremities Sensory: Sensation is intact to light touch throughout bilateral lower extremities. drain output 150cc since surgery, 20cc recently and 50's overnight Objective Data Vital Signs Vital Signs: Vital Signs - 24 hr 06/30/23 13:31 06/30/23 15:21 06/30/23 13:28 Temperature Pulse Rate 101 H Respiratory Rate 18 18 Blood Pressure 101/66 Pulse Oximetry 100 95 Oxygen Delivery Room Air Room Air 06/30/23 18:08 06/30/23 20:00 06/30/23 21:43 Temperature 97.4 F L Pulse Rate 99 Respiratory Rate 18 Blood Pressure 105/61 Pulse Oximetry 97 Oxygen Delivery Room Air Room Air 06/30/23 22:18 07/01/23 02:14 07/01/23 05:59 Temperature 98.5 F 97.9 F Pulse Rate 98 72 Respiratory Rate 18 17 Blood Pressure 98/57 L 90/40 L 106/65 Pulse Oximetry 96 98 Oxygen Delivery 07/01/23 06:10 07/01/23 08:51 07/01/23 11:47 Temperature 97.3 F L 97.3 F L Pulse Rate 72 97 Respiratory Rate 18 18 Blood Pressure 118/69 100/65 Pulse Oximetry 100 98 Oxygen Delivery Room Air Intake/Output Intake/Output: Intake & Output 06/28/23 06/29/23 06/30/23 07/01/23 23:59 23:59 23:59 23:59 Intake Total 2580 2810 Output Total 660 70 Balance 1920 2740 Meds/Results Medications: Active Medications Generic Name Dose Route Start Last Admin Trade Name Freq PRN Reason Stop Dose Admin Hydrocodone Bitart/Acetaminophen 1 tab 06/30/23 11:32 07/01/23 09:57 Hydrocodone/Acetaminophen (*Crx) 10-325 Mg Tablet PO 1 tab Q4H PRN Administration Moderate Pain (4-6) Al Hydrox/Mg Hydrox/Simethicone 20 ml 06/30/23 11:32 Mag Hydrox/Al Hydrox/Simeth 30 Ml Udc PO Q4H PRN Indigestion/Heartburn Bisacodyl 10 mg 06/30/23 11:32 Bisacodyl 10 Mg Suppository RECTAL DAILY PRN Constipation Cyclobenzaprine HCl 10 mg 06/30/23 11:32 07/01/23 09:06 Cyclobenzaprine Hcl 10 Mg Tablet PO 10 mg TID PRN Administration Muscle Spasms Docusate Sodium 100 mg 06/30/23 21:00 07/01/23 08:51 Docusate Sodium 100 Mg Capsule PO 100 mg Q12HR MERCEDES Administration Escitalopram Oxalate 10 mg 06/30/23 21:00 06/30/23 21:32 Escitalopram Oxalate 10 Mg Tablet PO 10 mg QHS MERCEDES Administration Furosemide 20 mg 06/30/23 17:00 07/01/23 08:51 Furosemide 20 Mg Tablet PO 20 mg BID MERCEDES Administration Cefazolin Sodium 1 gm in 50 mls @ 100 mls/hr 06/30/23 16:00 07/01/23 09:58 Ancef 1 Gm/Ns 50 Ml IVPB Infused Q8H MERCEDES Infusion Lisinopril 10 mg 07/01/23 09:00 07/01/23 08:51 Lisinopril 10 Mg Tablet PO 10 mg QAM MERCEDES Administration Morphine Sulfate 2 mg 06/30/23 11:32 Morphine Sulfate (*Crx) 2 Mg/Ml Inj IV PUSH Q2H PRN Pain Rated 7-10 Ondanse
== END 2023-07-01 15:40 | disposition home or self-care (01) ==
LOC: ANHSURGERY 06:10 → ANH2MED 11:36
PROVIDERS: PCP Nurse Practitioner Adult Health; Visit Provider Neurological Surgery
PROC: (CPT 63005; principal; 2023-06-30 07:30)
DX: M48.062 Spinal stenosis, lumbar region with neurogenic claudication (principal); I10 Essential (primary) hypertension; N40.0 Benign prostatic hyperplasia without lower urinary tract symptoms; G89.4 Chronic pain syndrome; K21.9 Gastro-esophageal reflux disease without esophagitis; F41.9 Anxiety disorder, unspecified; F32.A Depression, unspecified; Z79.891 Long term (current) use of opiate analgesic; E66.9 Obesity, unspecified; Z68.32 Body mass index [BMI] 32.0-32.9, adult; Z98.84 Bariatric surgery status; Z87.891 Personal history of nicotine dependence
CPT/HCPCS: 63047; 63048 ×2; 36415; 85610; 85730; 93005; 97110; 97161; 97165; 97530; 97535; 99199; A9270; J0330; J0690; J1100; J1170; J2250; J2405; J2704; J3010; J3480; J7120

== ENCOUNTER 2023-07-06 15:09 | Outpatient (CLI) | payer OTHER, SELFPAY ==
[2023-07-06 18:56] LABS: Appearance Urine Clear (Clear); Bilirubin Urine Negative (Negative); Blood Urine Negative (Negative); Color Urine Yellow (Yellow); Glucose Urine UA Negative (Negative); Ketones Urine Negative (Negative); Leukocyte Esterase Ur Negative LEU/UL (NEGATIVE); Nitrate Urine Negative (Negative); Protein Urine Negative (Negative); Specific Grav Ur 1.013 (1.001-1.035); pH Urine 5.5 (5.0-9.0)
[2023-07-06 18:57] LABS: Hematocrit 36.6 % (42.0-52.0); Hemoglobin 13.1 g/dL (14.0-18.0); Mean Corpuscular HGB Conc 35.8 g/dl (32-36); Mean Corpuscular Hemoglobin 34.8 pg (26-34); Mean Corpuscular Volume 97.3 fl (80-100); Platelet Count Result 230 k/mm3 (150-375); Red Blood Count 3.76 M/mm3 (4.6-6.20); Red Cell Distribution Width 12.5 % (11.5-14.5); White Blood Count 7.4 K/mm3 (4.5-10.0)
[2023-07-06 19:17] LABS: Add Urine Microscopic? NO
[2023-07-06 21:13] LABS: Anion Gap 0 mmol/L (8-16); Blood Urea Nitrogen 11 mg/dL (9-20); Calcium 9.4 mg/dL (8.4-10.2); Carbon Dioxide 34 mmol/L (22-30); Chloride 101 mmol/L (98-107); Estimated Glomerular Filt Rate > 60; Glucose 101 mg/dL (65-110); Magnesium 2.2 mg/dL (1.6-2.3); Potassium 4.5 mmol/L (3.4-5.0); Sodium 135 mmol/L (137-145)
== END 2023-07-06 15:10 | disposition home or self-care (01) ==
PROVIDERS: PCP Nurse Practitioner Adult Health; Visit Provider Nurse Practitioner Adult Health
DX: R42 Dizziness and giddiness (principal)
CPT/HCPCS: 36415; 80048; 81003; 83735; 85027

== ENCOUNTER 2023-10-24 10:30 | Outpatient (CLI) | payer OTHER, SELFPAY ==
--- NOTE | ~2023-10-24 | MR_ITS ---
EXAMINATION: MR lumbar spine wo con DATE: 10/24/2023 11:28 INDICATION: Low back pain. TECHNIQUE: Magnetic resonance imaging (MRI) of the lumbar spine was performed without intravenous con trast. Sequences included sagittal T2-weighted FSE, sagittal T2-weighted FS FSE, sagittal T1-weighted FSE, and axial T2-weighted FSE. COMPARISON: Lumbar spine MRI 05/29/2023, radiograph 10/24/2023 FINDINGS: There is 3 mm retrolisthesis of T12 on L1, L1-L2, and L2 on L3. There is mild chronic anter ior wedging of T11-L1 vertebral bodies. There is mildly decreased disc height at T11-T12. There is se verely decreased disc height at T12-L1 with interbody fusion. There is mildly decreased disc height a t L1-L2, moderately decreased disc height at L2-L3, mildly decreased disc height at L3-L4, moderately decreased disc height at L4-L5, and severely decreased disc height at L5-S1. The distal spinal cord signal intensity is normal. The conus medullaris is at T12-L1. The following disc levels are specific ally discussed: L1-L2: The disc is bulging. There is moderate bilateral facet joint osteoarthritis. There is mild rig ht and moderate left neural foraminal stenosis. There is mild central canal stenosis. L2-L3: The disc is bulging and has an annular fissure. There is severe bilateral facet joint osteoart hritis. There is moderate bilateral neural foraminal stenosis. There is mild central canal stenosis w ith posterior decompression. L3-L4: The disc is bulging and has an annular fissure. There is severe bilateral facet joint osteoart hritis. There is mild bilateral neural foraminal stenosis. There is mild central canal stenosis with posterior decompression. L4-L5: The disc is bulging and has an annular fissure. There is severe bilateral facet joint osteoart hritis. There is moderate bilateral neural foraminal stenosis. There is mild central canal stenosis w ith posterior decompression. L5-S1: The disc is bulging. There is severe bilateral facet joint osteoarthritis. There is moderate b ilateral neural foraminal stenosis. There is mild central canal stenosis. IMPRESSION: 1. Severe lower lumbar spondylosis with interval posterior decompression from 05/29/2023. Reviewed, dictated and finalized at location E. IMPRESSION: 1. Severe lower lumbar spondylosis with interval posterior decompression from .
--- NOTE | ~2023-10-24 | XR_ITS ---
XR lumbar spine min 4V DATE: 10/24/2023 11:33 INDICATION: Injury TECHNIQUE: AP, bilateral oblique, lateral, coned lateral lumbosacral and flexion and extension latera l views COMPARISON: None FINDINGS: There is osteopenia. Midlumbar laminectomy defect. There is fusion of the T12 and L1 vertebral bodies. Moderately severe degenerative disease at L1-2. Moderate amount of degenerative disease at L2-3. Moderate degenerative disc disease and minimal grade 1 anterolisthesis at L3-4.. Moderate degenerative disc disease and grade 1 anterolisthesis at L4-5. Severe degenerative disease at L5-S1. There is prominent degenerative change at the apophyseal joints particularly at L4-5 and L5-S1. No pa rs interarticular is defects are identified. There is approximately 4 mm retrolisthesis at L1-2 in extension, reduced in flexion. Stable slight retrolisthesis at L2-3. IMPRESSION: Status post lumbar laminectomy Osteopenia Fusion of T12 and L1 vertebral bodies Multilevel degenerative disc disease Degenerative change of the apophyseal joints with associated grade 1 anterolisthesis of L3-4, L4-5 an d L5-S1, reduced in extension 4 mm retrolisthesis in extension at L1-2, reduced in flexion Stable minimal retrolisthesis at L2-3 Reviewed, dictated and finalized at location A. IMPRESSION: Status post lumbar laminectomy Osteopenia Fusion of T12 and L1 vertebral bodies Multilevel degenerative disc disease Degenerative change of the apophyseal joints with associated grade 1 anterolist hesis of L3-4, L4-5 and L5-S1, reduced in extension 4 mm retrolisthesis in extension at L1-2, reduced in flexion Stable minimal retrolisthesis at L2-3
== END 2023-10-24 10:31 | disposition home or self-care (01) ==
PROVIDERS: PCP Nurse Practitioner Adult Health; Visit Provider Neurological Surgery
DX: M43.06 Spondylolysis, lumbar region (principal); Z98.1 Arthrodesis status
CPT/HCPCS: 72110; 72148

== ENCOUNTER 2024-02-18 13:43 | Outpatient (CLI) | payer MEDICARE, SELFPAY ==
[2024-02-18 14:31] LABS: Mean Platelet Volume 9.8 fl (7.4-10.4); Platelet Count Result 226 k/mm3 (150-375)
== END 2024-02-18 13:44 | disposition home or self-care (01) ==
PROVIDERS: PCP Nurse Practitioner Adult Health; Visit Provider Pain Medicine Pain Medicine
DX: Z01.818 Encounter for other preprocedural examination (principal)
CPT/HCPCS: 36415; 85049

== ENCOUNTER 2024-05-05 10:58 | Outpatient (CLI) | payer MEDICARE, SELFPAY ==
[2024-05-05 11:49] LABS: Basophils Absolute Auto 0.1 K/mm3 (0.0-0.1); Basophils Percent Auto 1.5 % (0.2-1.2); Eosinophils Absolute Auto 0.3 K/mm3 (0-0.3); Eosinophils Percent Auto 4.4 % (0-4.4); Hematocrit 43.4 % (42.0-52.0); Hemoglobin 14.9 g/dL (14.0-18.0); Immature Granulocyte Absolute 0.02 K/mm3 (0.00-0.031); Immature Granulocyte Percent A 0.3 % (0-0.5); Lymphocytes Percent Auto 33.4 % (18.3-44.2); Mean Corpuscular HGB Conc 34.3 g/dl (32-36); Mean Corpuscular Hemoglobin 33.7 pg (26-34); Mean Corpuscular Volume 98.2 fl (80-100); Mean Platelet Volume 10.4 fl (7.4-10.4); Monocytes Absolute Auto 0.6 K/mm3 (0.1-0.6); Monocytes Percent Auto 8.4 % (2.6-8.5); Neutrophils Absolute Auto 3.6 K/mm3 (1.3-6.7); Platelet Count Result 201 k/mm3 (150-375); Red Blood Count 4.42 M/mm3 (4.6-6.20); Red Cell Distribution Width 12.6 % (11.5-14.5); White Blood Count 6.9 K/mm3 (4.5-10.0)
[2024-05-05 12:02] LABS: Alanine Aminotransferase 16 U/L (6-50); Alkaline Phosphatase 68 U/L (38-126); Anion Gap 1 mmol/L (4-12); Aspartate Amino Transferase 23 U/L (17-59); Bilirubin,Total 0.8 mg/dL (0.2-1.3); Blood Urea Nitrogen 19 mg/dL (9-20); Calcium 8.9 mg/dL (8.4-10.2); Carbon Dioxide 32 mmol/L (22-30); Chloride 105 mmol/L (98-107); Cholesterol 210 mg/dL (0-200); Estimated Glomerular Filt Rate > 60; Glucose 92 mg/dL (65-110); HDL Direct 54 mg/dL; Potassium 5.1 mmol/L (3.4-5.0); Sodium 138 mmol/L (137-145); Triglycerides 187 mg/dL (<150)
[2024-05-05 12:13] LABS: LDL Cholesterol Direct 102 mg/dL
[2024-05-05 12:30] LABS: Prostate Specific Antigen 1.1 ng/mL (< OR = 4.0)
[2024-05-05 12:42] LABS: Hemoglobin A1C 5.4 % (<5.7)
== END 2024-05-05 10:59 | disposition home or self-care (01) ==
PROVIDERS: PCP Nurse Practitioner Adult Health; Visit Provider Nurse Practitioner Adult Health
DX: Z12.5 Encounter for screening for malignant neoplasm of prostate (principal); I10 Essential (primary) hypertension; E66.9 Obesity, unspecified; Z51.81 Encounter for therapeutic drug level monitoring
CPT/HCPCS: 36415; 80053; 80061; 82607; 83036; 84153; 85025; G0103

== ENCOUNTER 2024-05-12 13:16 | Outpatient (CLI) | payer MEDICARE, SELFPAY ==
[2024-05-12 19:57] LABS: Potassium 4.9 mmol/L (3.4-5.0)
== END 2024-05-12 13:17 | disposition home or self-care (01) ==
PROVIDERS: PCP Nurse Practitioner Adult Health; Visit Provider Nurse Practitioner Adult Health
DX: E87.5 Hyperkalemia (principal)
CPT/HCPCS: 36415; 84132

== ENCOUNTER 2024-10-05 15:49 | Outpatient (CLI) | payer MEDICARE, SELFPAY ==
--- NOTE | ~2024-10-05 | CT_ITS ---
Non-contrast CT scan of the Abdomen and Pelvis Clinical indication: BPH Technique: 2.5 mm axial scans were obtained through the abdomen and pelvis without intravenous or or al contrast. Dose reduction technique was used on this scan by utilizing automated exposure control a nd iterative reconstruction technique. The dose-length product (DLP) was 1515.57 mGy-cm. Findings: Images through the lung bases reveal focal grouped subcentimeter groundglass nodules in th e peripheral right middle lobe. There is linear scarring right lower lobe. Small hiatal hernia presen t with probable distention of the distal esophagus. There is no evidence of renal or ureteral calculi. The kidneys and the ureters are nondilated. The liver, spleen, and adrenals appear normal. There is severe fatty atrophy/replacement of pancreas. Cholecystectomy clips are present. There are atherosclerotic calcifications of the aorta. . There is no evidence of bowel obstruction. Evidence of prior gastric surgery. Images through the pelvis were performed. There is no evidence of ascites or lymphadenopathy. Urinary bladder unremarkable. No pelvic mass seen. Impression: Normal size prostate gland. Focal group subcentimeter groundglass nodules in the right middle lobe, which could reflect focal sma ll airways infectious process. Evidence of prior gastric surgery with small hiatal hernia and probably distention of the distal esop hagus. Correlate with relevant clinical history. Severe fatty atrophy/replacement of the pancreas. Reviewed, dictated and finalized at [facility]. Impression: Normal size prostate gland. Focal group subcentimeter groundglass nodules in the right middle lobe, which c ould reflect focal small airways infectious process. Evidence of prior gastric surgery with small hiatal hernia and probably distent ion of the distal esophagus. Correlate with relevant clinical history. Severe fatty atrophy/replacement of the pancreas.
--- OUTSIDE RECORDS SUMMARY | 2024-10-05 15:54 | XMS_ITS | Data Portability ---
Author Organization [place] [employer], Main Office Address [address] [place] [address] Care Team Providers Care Software Validation Engineer Name Role Phone CALRA SCOTT Primary Care Provider [phone] CARLA SCOTT Referring Provider Assessment Encounter Date Assessment Date Assessment LastModified by Organization Details LastModified Time 08/05/2022 08/05/2022 Patient has trochanteric bursitis right and left hip. Current he is tender to palpation laterally not so much in the groin. It is worse with activity somewhat relieved by rest. He had good relief from last injection however just has failed he would like to try it again. Right left hips injected the trochanteric bursa 20 mg Kenalog 4 cc 1% lidocaine. Her prescription drug management will try course of prednisone for pain and inflammation. I will see him back in a month for follow-up and reassess he has any changes or problems he will call discussed. [email or web address] Not available 08/05/2022 09:49:13 12/11/2022 12/11/2022 Patient returns trochanteric pain bilaterally. He good relief injections a just do not seem he the pain has returned he has trouble sleeping lying side. Neurologically he is intact strength is good walks with bit of gait and has tenderness over trochanters he wished to have an injection is done with 20 mg Kenalog 4 cc 1% lidocaine bursa side. For prescription drug management he will continue with Voltaren as it is helping. I will refill this when he runs low. we discussed monitoring of his electrolytes the kidneys which his primary care doctor is doing for the Voltaren. He will return in a month for follow-up. [email or web address] Not available 12/11/2022 09:31:46 Plan of Treatment Reminders Order Date Submit Date Provider Last Modified By Organization Details Last Modified Time Details Appointments None recorded. Lab PTH (parathyroi d hormone), intact, serum or plasma 2022 023 [email or web address] 1 [facility] (Lab), [address] [place], [address], 3 10:12:48 calcium, ionized, blood 2022 023 5 [facility] (Lab), [address] [place], [address], 3 22:19:33 vitamin D, 25-hydroxy, total, serum 2022 023 [email or web address] [facility] (Lab), [address] [place], [address], 3 09:53:32 Referral cardiologis t referral - Please call pt to schedule appt. Thank you 2022 023 [email or web address] [facility], [address], [place], [address], 3 08:18:29 Procedures injection/a spiration joint/bursa (PROC) - in office procedure, administere d by provider 2022 023 [email or web address] In-Office Order, Internal Use Only DO Not Attach Compendium DO Not Attach Compendium, Do Not Delete/merge, [id number] 3 14:08:45 injection/a spiration joint/bursa (PROC) - in office procedure, administere d by provider 2022 023 [email or web address] In-Office Order, Internal Use Only DO Not Attach Compendium DO Not Attach Compendium, Do Not Delete/merge, [id number] 3 09:25:10 Surgeries None recorded. Imaging electrocard iogram 2022 023 [email or web address] [facility] [address], [place], [address], 3 10:10:51 CT, chest, w/o contrast - STAT HOLD CALL 2022 023 [facility] ([facility]), [address], [place], [address], 3 11:41:48 Medication Orders Kenalog 10 mg/mL suspension for injection 2022 023 [place] [place] [address] [id number], [address], [place], [address], 4 12:08:38 ropivacaine (PF) 5 mg/mL (0.5 %) injection solution 2022 023 [place] [address] [id number], [address] [place], [address], 4 12:08:38 Kenalog 10 mg/mL suspension for injection [address] #[id number], [address] , [place], [address], 4 12:08:38 ropivacaine (PF) 5 mg/mL (0.5 %) injection solution [address][id number], [address], [place], [address], 4 12:08:38 prednisone 10 mg tablets in a dose pack 2022 023 alberto Osborne [facility]acy #[id number], [address] [place], [address], 3 09:49:57 Patient TargetsNo targets recorded. Patient InstructionsNo instructions recorded. Reason for Referral [employer] Referral for EC G: sinus arrhythmia Please call pt to schedule appt. Thank you Referring Physician: Carla Scott, [facility] Medicine, Encounter Date: 08/06/2022 Results Created Date Observation Date Name Description Value Unit Range Abnormal Flag Note LastModifiedBy Organization Detail LastModifiedTime 03/19/2003/21/2022 FOLAT E, SERUM /PLAS MA folate 11.2 NG/mL 2.76-2 0.0 Not Available [facility] (Lab) [address] [place], [address], 03/21/2022 10:00:28 03/19/2003/21/2022 VITAM IN B12 (PEGGY JARAD ) vb12 636 pg/mL 239-93 1 Not Available [facility] (Lab) [address] [place], [address], 03/21/2022 10:00:22 03/19/2003/19/2022 PHOSP HORUS phosphorus 3.7 mg/dL 2.5-4. 5 Not Available [facility] (Lab) [address] [place], [address], 03/19/2022 19:35:59 03/19/2003/19/2022 MAGNE SIUM magnesium 2.1 mg/dL 1.6-2. 3 Not Available [facility] (Lab) [address] [place], [address], 03/19/2022 19:35:57 03/19/2003/19/2022 LIPID PANEL LDL cholesterol, calculated 106 mg/dL 0-130 NIH ANNELISE NSUS REPOR T RECOM MENDA TIONS FOR LDL: ADULT CHILD LOW RISK <130 <110 (OPTI MAL LDL) <100 ----- BORDE RLINE : 130-1 59 ----- HIGH RISK: >160 >130 A TRIGL YCERI DE RESUL T >400 INVAL IDATE S THE CALCU LATIO N FOR LDL FRACT IONAT ION - THE LDL RESUL T WILL NOT BE REPOR AKILAH. Not Available [facility] (Lab) [address] [place], [address], 03/19/2022 19:35:56 03/19/2003/19/2022 LIPID PANEL cholesterol 208 mg/dL 140-19 9 high NIH ANNELISE NSUS RECOM MENDA TION FOR SEBASTIAN STERO L: ADULT CHILD LOW RISK: <200 <170 BORDE RLINE : <200- 239 ----- HIGH RISK: >240 >200 Not Available [facility] (Lab) [address] [place], [address], 03/19/2022 19:35:56 03/19/2003/19/2022 LIPID PANEL triglyceride s 167 mg/dL 0-150 high NIH ANNELISE NSUS REPOR T RECOM MENDA TION FOR TRIGL YCERI RIO: ADULT CHILD LOW RISK: <150 ----- BODER LINE: 150-1 99 ----- HIGH RISK: >200 ----- Not Available [facility] (Lab) [address] [place], [address], 03/19/2022 19:35:56 03/19/2003/19/2022 LIPID PANEL HDL cholesterol 69 mg/dL 40- Not Available [facility] (Lab) [address] [place], [address], 03/19/2022 19:35:56 03/19/20 22 03/19/2022 COMPR EHENS SCOUT METAB OLIC PANEL glucose 89 mg/dL 70-99 Not Available [facility] (Lab) [address] [place], [address], 03/19/2022 19:35:54 03/19/20 22 03/19/2022 COMPR EHENS SCOUT METAB OLIC PANEL sodium 137 mmol/ L 137-14 5 Not Available [facility] (Lab) [address] [place], [address], 03/19/2022 19:35:54 03/19/20 22 03/19/2022 COMPR EHENS SCOUT METAB OLIC PANEL potassium 5.0 mmol/ L 3.5-5. 1 Not Available [facility] (Lab) [address] [place], [address], 03/19/2022 19:35:54 03/19/20 22 03/19/2022 COMPR EHENS SCOUT METAB OLIC PANEL chloride 102 mmol/ L 98-107 Not Available [facility] (Lab) [address] [place], [address], 03/19/2022 19:35:54 03/19/20 22 03/19/2022 COMPR EHENS SCOUT METAB OLIC PANEL carbon dioxide 32 mmol/ L 22-30 high Not Available [facility] (Lab) [address] [place], [address], 03/19/2022 19:35:54 03/19/20 22 03/19/2022 COMPR EHENS SCOUT METAB OLIC PANEL anion gap 8.0 mmol/ L 14-22 low Not Available [facility] (Lab) [address] [place], [address], 03/19/2022 19:35:54 03/19/20 22 03/19/2022 COMPR EHENS SCOUT METAB OLIC PANEL BUN 21 mg/dL 8-19 high Not Available [facility] (Lab) [address] [place], [address], 03/19/2022 19:35:54 03/19/20 22 03/19/2022 COMPR EHENS SCOUT METAB OLIC PANEL creatinine 0.80 mg/dL 0.66-1 .25 Not Available [facility] (Lab) [address] [place], [address], 03/19/2022 19:35:54 03/19/20 22 03/19/2022 COMPR EHENS SCOUT METAB OLIC PANEL GFR >60 Refer ence Range : [place] ge GFR Healt hy Adult : >60 mL/mi n/1.7 3 m2 Chron ic Kidne y Disea se: 15-60 mL/mi n/1.7 3 m2 Kidne y Failu re: <15/m L/min /1.73 m2 www.n iddk. nih.g ov The MDRD study equat ion has not been valid ated in child monty <18 years of age; pregn ant women ; the elder ly >85 years of age; or in some racia l or ethni c subgr oups, such as Hispa nics. Outsi de the valid ated dejon eters , estim ated GFR is less accur ate, requi ring clini emili judgm ent on a case- by-ca se basis . Clini emili inter preta tion for other races and ages must be made by the clini edil. The MDRD study equat ion has not been valid ated for the evalu ation of serum creat inine relat ed to nutri dima l statu s or medic ation usage . For perso ns <18 years of age, a pedia tric GFR calcu lator is avail able on the [facility] websi te: https ://ww w.kid noa.o rg/pr ofess ional s/kdo qi/gf r_cal culat or Not Available [facility] (Lab) [address] [place], [address], 03/19/2022 19:35:54 03/19/20 22 03/19/2022 COMPR EHENS SCOUT METAB OLIC PANEL alkaline phosphatase 74 U/L 38-126 Not Available [facility] (Lab) [address] [place], [address], 03/19/2022 19:35:54 03/19/2003/19/2022 COMPR EHENS SCOUT METAB OLIC PANEL alanine aminotransfe rase 17 U/L 0-50 Not Available [facility] (Lab) [address] [place], [address], 03/19/2022 19:35:54 03/19/20 22 03/19/2022 COMPR EHENS SCOUT METAB OLIC PANEL aspartate aminotransfe rase 22 U/L 15-46 Not Available [facility] (Lab) [address] [place], [address], 03/19/2022 19:35:54 03/19/20 22 03/19/2022 COMPR EHENS SCOUT METAB OLIC PANEL bilirubin, total 1.00 mg/dL 0.20-1 .30 Not Available [facility] (Lab) [address] [place], [address], 03/19/2022 19:35:54 03/19/20 22 03/19/2022 COMPR EHENS SCOUT METAB OLIC PANEL calcium 9.3 mg/dL 8.4-10 .2 Not Available [facility] (Lab) [address] [place], [address], 03/19/2022 19:35:54 03/19/20 22 03/19/2022 COMPR EHENS SCOUT METAB OLIC PANEL total protein 7.1 g/dL 6.3-8. 2 Not Available [facility] (Lab) [address] [place], [address], 03/19/2022 19:35:54 03/19/20 22 03/19/2022 COMPR EHENS SCOUT METAB OLIC PANEL albumin 4.2 g/dL 3.0-4. 4 Not Available [facility] (Lab) [address] [place], [address], 03/19/2022 19:35:54 03/19/20 22 03/19/2022 COMPR EHENS SCOUT METAB OLIC PANEL globulin 2.9 g/dL 2.6-4. 2 Not Available [facility] (Lab) [address] [place], [address], 03/19/2022 19:35:54 03/19/20 22 03/19/2022 COMPR EHENS SCOUT METAB OLIC PANEL A/G ratio 1.4 ratio 1.0-2. 0 Not Available [facility] (Lab) [address] [place], [address], 03/19/2022 19:35:54 03/19/20 22 03/19/2022 PARAT HY.HO RM(PT H)INT ACT-W /O CA intact parathyroid hormone 66.3 pg/mL 24.0-7 8.0 Not Available [facility] (Lab) [address] [place], [address], 03/19/2022 19:32:53 03/19/20 22 03/19/2022 CBC/C OMPLE TE BLD COUNT W/DIF F mean red cell volume 101.6 fL 80.0-9 7.0 high Not Available [facility] (Lab) [address] [place], [address], 03/19/2022 18:30:22 03/19/20 22 03/19/2022 CBC/C OMPLE TE BLD COUNT W/DIF F white blood cells 7.8 x10'3 /uL 4.2-10 .8 Not Available [facility] (Lab) [address] [place], [address], 03/19/2022 18:30:22 03/19/20 22 03/19/2022 CBC/C OMPLE TE BLD COUNT W/DIF F red blood cells 4.28 x10'6 /uL 4.10-5 .80 Not Available [facility] (Lab) [address] [place], [address], 03/19/2022 18:30:22 03/19/20 22 03/19/2022 CBC/C OMPLE TE BLD COUNT W/DIF F hemoglobin 14.9 g/dL 13.2-1 7.0 Not Available [facility] (Lab) [address] [place], [address], 03/19/2022 18:30:22 03/19/20 22 03/19/2022 CBC/C OMPLE TE BLD COUNT W/DIF F hematocrit 43.5 % 39.3-5 0.0 Not Available [facility] (Lab) [address] [place], [address], 03/19/2022 18:30:22 03/19/20 22 03/19/2022 CBC/C OMPLE TE BLD COUNT W/DIF F mean red cell hemoglobin 34.8 pg 27.0-3 3.0 high Not Available [facility] (Lab) [address] [facility] [place], [address], 03/19/2022 18:30:22 03/19/20 22 03/19/2022 CBC/C OMPLE TE BLD COUNT W/DIF F mean RBC HGB concentratio n 34.3 g/dL 31.0-3 6.0 Not Available [facility] (Lab) [address] [place], [address], 03/19/2022 18:30:22 03/19/20 22 03/19/2022 CBC/C OMPLE TE BLD COUNT W/DIF F red cell distribution width 13.4 % 11.8-1 5.5 Not Available [facility] (Lab) [address] [place], [address], 03/19/2022 18:30:22 03/19/20 22 03/19/2022 CBC/C OMPLE TE BLD COUNT W/DIF F platelets 166 x10'3 /uL 150-40 0 Not Available [facility] (Lab) [address] [place], [address], 03/19/2022 18:30:22 03/19/20 22 03/19/2022 CBC/C OMPLE TE BLD COUNT W/DIF F mean platelet volume 13.0 fL 9.0-12 .4 high Not Available [facility] (Lab) [address] [place], [address], 03/19/2022 18:30:22 03/19/2003/19/2022 CBC/C OMPLE TE BLD COUNT W/DIF F neutrophils 55.7 % 39.0-7 2.0 Not Available [facility] (Lab) [address] [place], [address], 03/19/2022 18:30:22 03/19/20 22 03/19/2022 CBC/C OMPLE TE BLD COUNT W/DIF F lymphocytes 30.5 % 16.0-4 7.0 Not Available [facility] (Lab) [address] [place], [address], 03/19/2022 18:30:22 03/19/2003/19/2022 CBC/C OMPLE TE BLD COUNT W/DIF F monocytes 8.2 % 5.0-12 .0 Not Available [facility] (Lab) [address] [place], [address], 03/19/2022 18:30:22 03/19/2003/19/2022 CBC/C OMPLE TE BLD COUNT W/DIF F eosinophils 3.7 % 1.0-7. 0 Not Available [facility] (Lab) [address] [place], [address], 03/19/2022 18:30:22 03/19/20 22 03/19/2022 CBC/C OMPLE TE BLD COUNT W/DIF F basophils 1.3 % 0.0-2. 0 Not Available [facility] (Lab) [address] [place], [address], 03/19/2022 18:30:22 03/19/20 22 03/19/2022 CBC/C OMPLE TE BLD COUNT W/DIF F immature granulocytes 0.6 % 0.00-0 .50 high Not Available [facility] (Lab) [address] [place], [address], 03/19/2022 18:30:22 10/2603/19/2022 CBC/C OMPLE TE BLD COUNT W/DIF F neutrophils, absolute count 4.36 x10'3 /uL 1.5-8. 0 Not Available [facility] (Lab) [address] [place], [address], 03/19/2022 18:30:22 03/19/20 22 03/19/2022 CBC/C OMPLE TE BLD COUNT W/DIF F lymphocytes, absolute count 2.39 x10'3 /uL 1.07-3 .43 Not Available [facility] (Lab) [address] [place], [address], 03/19/2022 18:30:22 03/19/2003/19/2022 CBC/C OMPLE TE BLD COUNT W/DIF F monocytes, absolute count 0.64 x10'3 /uL 0.29-0 .99 Not Available [facility] (Lab) [address] [place], [address], 03/19/2022 18:30:22 03/19/20 22 03/19/2022 CBC/C OMPLE TE BLD COUNT W/DIF F eosinophils, absolute count 0.29 x10'3 /uL 0.02-0 .53 Not Available [facility] (Lab) [address] [place], [address], 03/19/2022 18:30:22 03/19/20 22 03/19/2022 CBC/C OMPLE TE BLD COUNT W/DIF F basophils, absolute count 0.10 x10'3 /uL 0.01-0 .08 high Not Available [facility] (Lab) [address] [place], [address], 03/19/2022 18:30:22 03/19/20 22 03/19/2022 CBC/C OMPLE TE BLD COUNT W/DIF F immature granulocytes ,absolute 0.05 x10'3 /uL 0.00-0 .05 Not Available [facility] (Lab) [address] [place], [address], 03/19/2022 18:30:22 03/19/20 22 03/19/2022 CBC/C OMPLE TE BLD COUNT W/DIF F nucleated red blood cells 0.0 % -0 Not Available [facility] (Lab) [address] [place], [address], 03/19/2022 18:30:22 03/19/20 22 03/19/2022 CBC/C OMPLE TE BLD COUNT W/DIF F NRBC# 0.00 x10'3 /uL Not Available [facility] (Lab) [address] [place], [address], 03/19/2022 18:30:22 08/07/19 23 08/06/2022 VITAM IN D 25-HY DROXY vd25oh 33.2 NG/mL 30-100 Vitam in D Statu s: Defic ient: <20 ng/mL Insuf ficie nt: 20-29 ng/mL Suffi cient : 30-10 0 ng/mL Not Available [facility] (Lab) [address] [place], [address], 08/06/2022 19:43:48 08/07/19 23 08/08/2022 CALCI UM, IONIZ ED/LC calcium, ionized, serum 4.6 mg/dL 4.5-5. 6 Perfo rmed at: [facility] [place] [address] Lab Direc tor: Royce herring PhD, Phone : [phone] Not Available [facility] (Lab) [address] [place], [address], 08/08/2022 14:12:28 05/12/20 22 05/12/2022 XR, cervi emili spine No observ ation record ed. [id number], [place], [address], 07/23/2022 01:21:13 08/07/19 23 elect ankit diogr am No observ ation record ed. [email or web address] [facility] [address], [place], [address], 08/06/2022 09:52:12 08/07/19 23 08/06/2022 XR, chest , [facility] [address], [place] [address] Jose Roberto sy Name: SYLWIA FLYNN Access ion #: [id number] Sex: M : 1959 6 Locati on: RAD Attend ing Physic eliu: CARLA SCOTT Orderi ng Physic eliu: CARLA SCOTT Exam Date: 023 10:03 AM Exam Name: XR CHEST 2V Admitt ing Diagno sis(es ): RADIOL OGY REPORT - FINAL EXAM: XR CHEST 2V HISTOR Y: CHEST PAIN 62-yea r-old male with chest pain and shortn ess of breath . COMPAR LOR: Chest x-ray dated 2020; CT scan of the chest dated 2020. TECHNI QUE: 2 views of the chest were perfor med. FINDIN GS: No pneumo thorax , pulmon ryan edema, or consol idativ e infilt rates. There is mild linear scarri ng in the right upper lobe. There is stable mild elevat ion of the right hemidi aphrag m. The heart is not enlarg ed. No fractu res are identi fied about the bony thorax . There are postop erativ e change s of the cervic al spine. Page 1 of 2 [facility] Jose Roberto sy Name: SYLWIA FLYNN Access ion #: [id number] Sex: M : 1959 4 Exam Date: 023 10:03 AM Exam Name: XR CHEST 2V Admitt ing Diagno sis(es ): IMPRES LOIS: 1. Resolv ed right upper lobe pneumo roxane with subseq uent linear scarri ng. 2. No acute intrat horaci c proces s is identi fied here. Create d and electr onical ly signed by: Maicol rm MD Signed Date: 10:17 AM (CT) Dictat ed by: Maicol rm MD DD: 10:17 AM (CT) DT: 10:17 AM (CT) Page 2 of 2 [email or web address] [facility] (Imaging) [address] [place], [address], 08/16/2022 17:53:59 08/07/19 23 08/06/2022 CT, chest , w/o contr ast [facility] [address] [place] [address] Patien t Name: SYLWIA FLYNN Access ion #: [id number] Sex: M : 1959 6 Locati on: RAD Attend ing Physic eliu: CARLA SCOTT Orderi ng Physic eliu: CARLA SCOTT Exam Date: 10:07 AM Exam Name: CT CHEST WO Admitt ing Diagno sis(es ): RADIOL OGY REPORT - FINAL EXAM: CT CHEST WO HISTOR Y: chest pain on exerti on 62-yea r-old male with chest pain, shortn ess of breath , former smoker . COMPAR LOR: Chest CT dated 2020. TECHNI QUE: Helica l CT images of the chest were perfor med withou t contra st. Sagitt al and cano l reform atted images were obtain ed. This CT exam was perfor med using one or more of the follow ing dose reduct ion techni ques: Automa akilah exposu re contro l, adjust ment of the mA and/or kV accord ing to patien t size, or use of iterat scout recons tructi on techni que. FINDIN GS: There is linear scarri ng in the right upper lobe in the area of the patien t's Page 1 of 3 [facility] Patien t Name: SYLWIA FLYNN Access ion #: [id number] Sex: M : 1959 6 Exam Date: 10:07 AM Exam Name: CT CHEST WO Admitt ing Diagno sis(es ): previo us consol idativ e pneumo roxane. No pneumo thorax , pulmon ryan edema, pleura l effusi ons, noncal cified pulmon yran nodule s, or consol idativ e infilt rates. No suspic ious medias tinal or axilla ry adenop athy. The heart is not enlarg ed. There are cano ry artery calcif icatio ns. No thorac ic aortic aneury sm. No fractu res are identi fied about the bony thorax . There is mild bilate ral gyneco mastia . There is fecal retent ion in the partia lly visual ized colon. There are postop erativ e change s of gastri c bypass and cholec ystect michael. There is a small slidin g hiatal hernia . There is fatty atroph y of the pancre as. There is a left upper quadra nt splenu le. There is fecal retent ion in the partia lly visual ized colon. There is modera te lower thorac ic degene rative disc diseas e and advanc ed upper lumbar degene rative disc diseas e. IMPRES LOIS: 1. Right upper lobe scarri ng withou t eviden ce of acute intrat horaci c proces s. 2. Cano ry artery diseas e. 3. Fecal retent ion in the partia lly visual ized colon sugges tive of consti pation . 4. Postop erativ e change s of gastri c bypass and cholec ystect michael. 5. Small slidin g hiatal hernia . 6. Pancre atic atroph y. 7. Modera te lower thorac ic and advanc ed upper lumbar degene rative disc diseas e. Create d and electr onical ly signed by: Maicol rm MD Signed Date: 3/15/2 023 10:39 AM (CT) Dictat ed by: Maicol rm MD Page 2 of [address] [facility] yossi Name: SYLWIA FLYNN ion #: [id number] Sex: M : 1959 6 Exam Date: 10:07 AM Exam Name: CT CHEST WO Admitt ing Diagno sis(es ): DD: 10:39 AM (CT) DT: 10:39 AM (CT) Page 3 of 3 [email or web address] [facility] (Imaging) [address] [place], [address], 08/16/2022 17:53:39 08/08/19 23 08/06/2022 elect rocar diogr am No observ ation record ed. [facility] [address], [place], [address], 08/07/2022 10:53:42 08/13/19 23 08/06/2022 CT, chest , w/o contr ast No observ ation record ed. [email or web address] [facility] [address] [place], [address], 08/18/2022 08:29:36 09/03/19 23 09/01/2022 exerc ise stres s test No observ ation record ed. [email or web address] [facility] [address], [place], [address], 09/15/2022 17:17:34 09/03/19 23 09/01/2022 stres s echoc ardio gram No observ ation record ed. [email or web address] [facility] [address], [place], [address], 09/15/2022 17:19:04 09/24/19 23 09/23/2022 PFT, compl ete No observ ation record ed. [email or web address] [facility] [address], [place], [address], 09/24/2022 08:25:31 Result Notes None recorded. Problems Name Problem SNOMED Code Status Onset Date Resolution Date Notes Provider Name and Address Organization Details Recorded Time Edema of lower extremity 442858471 Active 2020 Not Available [facility] 4 11:39:44 Edema of lower extremity 820936982 Completed 201607/07/2018 Not Available [facility] 3 01:11:56 Tendiniti s of right shoulder 71373743524 27918 Completed 202007/30/2020 Not Available [facility] 3 01:11:56 Tendiniti s of left shoulder 30348350578 53861 Completed 202007/30/2020 Not Available [facility] 3 01:11:56 Disorder of shoulder 017771133 Completed Not Available [facility] 3 01:11:56 History of total knee arthropla sty 67561070387 05 Active 2019 Not Available [facility] 4 11:39:44 Pain of bilateral hip joints 55698734247 805778 Active 2021 Not Available [employer] 4 11:39:44 Nocturia [id number] Active Not Available [facility] 4 11:39:44 Backache [id number] Completed Not Available [facility] 3 01:11:56 Increased frequency of urination 863709630 Completed Not Available [facility] 3 01:11:57 Acute meniscal tear, medial, posterior horn 326847278 Completed 201811/25/2019 Not Available [facility] 3 01:11:57 Abdominal pain 81630126 Completed Not Available [facility] 3 01:11:57 Mixed anxiety and depressiv e disorder 716196610 Active 2020 Not Available [facility] 4 11:39:44 Osteoarth ritis of knee 140883434 Completed 201807/30/2020 Not Available 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 27876012 Completed Not Available [facility] 3 01:11:57 Current tear of medial cartilage AND/OR meniscus of knee Completed Not Available [facility] 3 01:11:57 Knee pain Completed Not Available [facility] 3 01:11:57 Trochante ellyn bursitis of left hip 63956602888 9103 Active 2021 Not Available [facility] 4 11:39:44 Trochante ellyn bursitis of right hip 74817099874 9100 Active 2021 Not Available [facility] 4 11:39:44 Vitamin D deficienc y 01599007 Active 2017 Not Available [facility] 4 11:39:44 Osteoarth ritis 932711805 Active Not Available [facility] 4 11:39:44 Macrocyto sis 483528122 Active 2021 Not Available [facility] 4 11:39:44 Disorder of rotator cuff 955074921 Active Not Available [facility] 4 11:39:44 Obesity 444019466 Active 2021 Not Available [facility] 4 11:39:44 Cervical disc disorder 448122902 Active 2021 Not Available [facility] 4 11:39:44 Gastritis 3116945 Completed Not Available [facility] 3 01:11:58 Disorder of bursa of shoulder region 64645981 Completed Not Available [facility] 3 01:11:58 Essential hypertens ion 95315630 Active Not Available [facility] 4 11:39:44 History of bariatric surgical procedure 064889196 Active 2020 Not Available [facility] 4 11:39:44 Derangeme nt of knee 67672249 Completed Not Available [facility] 3 01:11:59 Hyperpara thyroidis m 88560232 Active 2021 Not Available [facility] 4 11:39:44 Osteoarth ritis of shoulder region 76933569 Completed Not Available [facility] 3 01:11:59 Rhinitis 27273850 Completed 201707/30/2020 Not Available [facility] 3 01:11:59 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 Not Available [facility] 4 11:39:44 Neck pain 10669324 Completed 201611/25/2019 Not Available [id number]|2024-10-05 15:54:00|2024-10-05 15:54:00|XMS_ITS|BKG DAEMON|External Medical Summaries|[id number]|" CONTINUITY OF CARE DOCUMENT Created on: October 05, 2024 Sylwia Flynn : 1960 Sex: Male Author Name fanny escobedo Address Unknown Organization [facility] Address [address] [place] [address] Phone [phone] Care Team Providers Care Software Validation Engineer Name Role Phone Trixie Anand MD Unavailable [phone] ANA JACQUES Unavailable ANA JACQUES Unavailable [phone] PROBLEMS Condition Status Date Provider Notes Cardiology examination active Trixie paniagua MD Chest pain active Trixie Anand MD SOB active Trixie Anand MD Bilateral leg Edema active Trixie Gonzalez HTN essential active Trixie Anand MD COPD active Trixie Anand MD Abnormal nuclear stress test active Charlie Anand MD ENCOUNTERS Date Type Provider Location Encounter Diag nosis - In-person encounter Office Visit Trixie Anand MD [facility] - In-person encounter Office Visit Trixie Anand MD [facility] Abnormal nuclear stress test - In-person encounter Office Visit Trixie Anand MD [facility] Cardiology examinationChest painSOBBilateral leg EdemaHTN essentialCOPD VITAL SIGNS Date Observation Value Provider Body Mass Index (Ratio) 31.71 kg/m2 Janis Anand MD blood pressure, cuff size regular Ke rri Anatolyneluis enrique blood pressure, diastolic 80 mm[Hg] Ke rri Stuart blood pressure, systolic 130 mm[Hg] Jin Davidson oxygen saturation, oximetry 98 % Kayley Davidson respiratory rate E&M 12 /min Kayley whiteenefermin pulse rate 117 /min Kayley Lewis er weight E&M 221 [lb_av] Kayley Lewis lder height E&M 70 [in_i] Kayley Lewis er Body Mass Index (Ratio) 32.14 kg/m2 Dilan Garcia blood pressure, diastolic 83 mm[Hg] St elo Ferraro blood pressure, systolic 118 mm[Hg] Trinity Ferraro oxygen saturation, oximetry 99 % Sun Ferraro pulse rate 95 /min Sun Ronan respiratory rate E&M 18 /min Sun Kayla huizar weight E&M 224 [lb_av] Sun Ronan height E&M 70 [in_i] Sun Ronan Body Mass Index (Ratio) 32.42 kg/m2 Janis Anand MD blood pressure, diastolic 88 mm[Hg] [facility] blood pressure, systolic 121 mm[Hg] [facility] blood pressure, diastolic 88 mm[Hg] [facility] blood pressure, systolic 121 mm[Hg] [facility] blood pressure, cuff size large Ia rebel Cano blood pressure, diastolic 88 mm[Hg] Ia rebel Cano blood pressure, systolic 121 mm[Hg] [facility] toro Cano oxygen saturation, oximetry 100 % Anu Cano pulse rate 100 /min Anu gonzalez respiratory rate E&M 16 /min Sherron Cano height E&M 70 [in_i] Anu gonzalez weight E&M 226 [lb_av] Anu gonzalez HISTORY OF MEDICATION USE Medication Status Instructions Dates Provider Indications Com ments cyclobenzaprine 10 mg tablet active Anu Cano zolpidem 10 mg tablet active [facility] toro Cano lisinopril 10 mg tablet active toñito Cano hydrocodone-acetaminoph en 10-325 mg tablet active Anu Cano escitalopram oxalate 10 mg tablet active Anu Cano furosemide 20 mg tablet active toñito Cano diclofenac sodium 75 mg tablet,delayed release (DR/EC) active Anu Cano tamsulosin 0.4 mg capsule active Anu Cano pantoprazole 40 mg tablet,delayed release (DR/EC) active Anu Cano SOCIAL HISTORY Date Observation Value Provider social history E&M S moking History: Sherry moscoso has never smoked. Trixie Anand MD social history reviewed E&M revi ewed - no changes required Trixie Anand MD smoking status Never smoker Kayley bauman number of grandchildren Trixie Anand MD social history E&M S moking History: Sherry moscoso has never smoked. Trixie Anand MD social history reviewed E&M revi ewed - no changes required Trixie Anand MD smoking status Never smoker Sun Ronan social history E&M S moking History: Sherry moscoso has never smoked. Trixie Anand MD social history reviewed E&M revi ewed - no changes required Trixie Anand MD smoking status Never smoker Anu Cortes and INSURANCE PROVIDERS Payer name Policy type / Coverage type [place] [employer] party ID [facility] [id number] Other [id number] ADVANCE DIRECTIVES Name Date DISCUSSED - NO DECISION MADE TREATMENT PLAN Date Name Performer [id number],Estephania P t reports dramatic improvement of his SOB. HIs PFTs and 6 minute walk test were grossly normal. I discussed with him our plan from previous visit, which included proceeding to cath if his pulmonary tests were normal. However, since he is asymptomatic today, he would like to hold off on cath. We will proceed with it only if his symptoms recur. I discussed with him the risks, benefits, and details of the procedure, including the risks and benefits in waiting to perform the procedure in the future. Trixie Anand MD [id number],Sherry Best t reports dramatic improvement of his SOB. HIs PFTs and 6 minute walk test were grossly normal. I discussed with him our plan from previous visit, which included proceeding to cath if his pulmonary tests were normal. However, since he is asymptomatic today, he would like to hold off on cath and proceed with it only if his symptoms recur. I discussed with him the risks, benefits, and details of the procedure, including the risks and benefits in waiting to perform the procedure in the future. Trixie Anand MD [id number],S, C ontinues on diuretics. Trixie Anand MD [id number],C,B lood pressure control is satisfactory. Trixie Anand MD [id number],C, N o further chest pain. We will proceed with cardiac cath if his symptoms recur. Trixie Anand MD [id number],C, P t reports dramatic improvement of his SOB. HIs PFTs and 6 minute walk test were grossly normal. I discussed with him our plan from previous visit, which included proceeding to cath if his pulmonary tests were normal. HOwever, since he is asymptomatic today, he would like to hold off on cath and proceed with it only if his symptoms recur. I discussed with him the risks, benefits, and details of the procedure, including the risks and benefits in waiting to perform the procedure in the future. Trixie Anand MD [id number],C, C ontinues on diuretics. Trixie Anand MD [id number],C, R ecent stress test was mildly abnormal with abnormal perfusion imaging in the apical wall with a mild perfusion defect, which is small in size and is not reversible, and abnormal perfusion imaging in the inferior wall with a moderate perfusion defect, which is moderate in size and has slight reversibility. The patient experienced dyspnea and fatigue during the test which resolved with rest. EF was 62% with normal LVF on echo. The stress abnormality is small and likely does not account for his symptoms. I feel the reasonable next step would be to do PFTs to evaluate for a pulmonary etiology of his symptoms. If the PFTs are not abnormal, he would certainly benefit from a cardiac cath to rule out occlusive CAD. Trixie Anand MD [id number],C, I ntermittent SOB. Following pulmonary for his fungal infection which seems to have been resolved. The stress abnormality is small and likely does not account for his symptoms. I feel the reasonable next step would be to do PFTs and a 6 minute walk test with ambulatory oximetry to evaluate for a pulmonary etiology of his symptoms. If these tests are not abnormal, he would certainly benefit from a cardiac cath to rule out occlusive CAD. Trixie Anand MD [id number],C, B lood pressure control is satisfactory. Trixie Anand MD [id number],C, B lood pressure control is satisfactory. Trixie Anand MD [id number],C, H as had for many years, continues on diuretics. Trixie Anand MD [id number],C, E tiology unclear. Will rule out ischemia as a cause. Following pulmonary for his fungal infection which seems to have been resolved. Trixie Anand MD [id number],C, N ew onsent of symptoms with risk factos for CAD, will arrange for him to have stress test cardiolite and echo Trixie Anand MD Cardiology: P t reports dramatic improvement of his SOB. HIs PFTs and 6 minute walk test were grossly normal. I discussed with him our plan from previous visit, which included proceeding to cath if his pulmonary tests were normal. However, since he is asymptomatic today, he would like to hold off on cath. We will proceed with it only if his symptoms recur. I discussed with him the risks, benefits, and details of the procedure, including the risks and benefits in waiting to perform the procedure in the future. Trixie Anand MD Cardiology: P t reports dramatic improvement of his SOB. HIs PFTs and 6 minute walk test were grossly normal. I discussed with him our plan from previous visit, which included proceeding to cath if his pulmonary tests were normal. However, since he is asymptomatic today, he would like to hold off on cath and proceed with it only if his symptoms recur. I discussed with him the risks, benefits, and details of the procedure, including the risks and benefits in waiting to perform the procedure in the future. Trixie Anand MD Cardiology: C ontinues on diuretics. Trixie Anand MD Cardiology:Blood pre ssure control is satisfactory. Trixie Anand MD Cardiology: N o further chest pain. We will proceed with cardiac cath if his symptoms recur. Trixie Anand MD Cardiology: Sherry sy reports dramatic improvement of his SOB. HIs PFTs and 6 minute walk test were grossly normal. I discussed with him our plan from previous visit, which included proceeding to cath if his pulmonary tests were normal. HOwever, since he is asymptomatic today, he would like to hold off on cath and proceed with it only if his symptoms recur. I discussed with him the risks, benefits, and details of the procedure, including the risks and benefits in waiting to perform the procedure in the future. Trixie Anand MD Cardiology: Estephania ingram on diuretics. Trixie Anand MD Cardiology: R ecent stress test was mildly abnormal with abnormal perfusion imaging in the apical wall with a mild perfusion defect, which is small in size and is not reversible, and abnormal perfusion imaging in the inferior wall with a moderate perfusion defect, which is moderate in size and has slight reversibility. The patient experienced dyspnea and fatigue during the test which resolved with rest. EF was 62% with normal LVF on echo. The stress abnormality is small and likely does not account for his symptoms. I feel the reasonable next step would be to do PFTs to evaluate for a pulmonary etiology of his symptoms. If the PFTs are not abnormal, he would certainly benefit from a cardiac cath to rule out occlusive CAD. Trixie Anand MD Cardiology: I ntermittent SOB. Following pulmonary for his fungal infection which seems to have been resolved. The stress abnormality is small and likely does not account for his symptoms. I feel the reasonable next step would be to do PFTs and a 6 minute walk test with ambulatory oximetry to evaluate for a pulmonary etiology of his symptoms. If these tests are not abnormal, he would certainly benefit from a cardiac cath to rule out occlusive CAD. Trixie Anand MD Cardiology: B lood pressure control is satisfactory. Trixie Anand MD Cardiology: B lood pressure control is satisfactory. Trixie Anand MD Cardiology: H as had for many years, continues on diuretics. Trixie Anand MD Cardiology: E tiology unclear. Will rule out ischemia as a cause. Following pulmonary for his fungal infection which seems to have been resolved. Trixie Anand MD Cardiology: N ew onsent of symptoms with risk factos for CAD, will arrange for him to have stress test cardiolite and echo Trixie Anand MD Date Name Ambulatory Oximetry 6 minute walk test DLCO - 88344 FRC - 46549 FVC - 22565 Complete Echo Stress Exercise Card iolite HISTORY OF PROCEDURES Procedure Date Procedure Name Provider Procedure Notes S tatus EKG Trixie Anand MD complet ed 6 minute walk test Trixie Anand MD completed Spirometry Trixie Anand MD complet ed FVC / MVV with bronchodilator - 11508 Trixie Anand MD completed FRC - 53711 Trixie Anand MD comple [place] SpO2 w/o 6min walk/titration Trixie Anand MD completed SVC - 86820 Trixie Anand MD comple [place]il[place] DLCO - 99150 Trixie Anand MD compl eted EKG Trixie Anand MD complet ed EKG Trixie Anand MD complet ed "
--- OUTSIDE RECORDS SUMMARY | 2024-10-05 15:55 | XMS_ITS | Clinical Summary ---
Author Organization [facility] Address [address] [place] [address] Phone Care Team Providers Care Weight Analyst Name Role Phone Pao Figueroa APRN, SUBSTANCE ABUSE RN Primary Care Provider + Allergies No known active allergies Family History Medical History Relation Name Comments Cancer Father COLON Relation Name Status Comments Father Mother Social History Tobacco Use Types Packs/Day Years Used Date Smoking Tobacco: Former Cigarettes Smokeless Tobacco: Never Tobacco Cessation:Counseling Given: Not Answered Alcohol Use Standard Drinks/Week Comments Yes 7 (1 standard drink = 0.6 oz pur e alcohol) 5-10 DRINKS A WEEK Sex and Gender Information Value Date Recorded Sex Assigned at Male 01/28/2024 8:28 AM CDT Legal Sex Male 8:14 AM CDT Gender Identity Male 01/28/2024 8:28 AM CDT Sexual Orientation Not on file Last Filed Vital Signs Vital Sign Reading Time Taken Comments Blood Pressure - - Pulse - - Temperature - - Respiratory Rate - - Oxygen Saturation - - Inhaled Oxygen Concentration - - Weight 108.9 kg (240 lb) 02/02/2024 1:00 PM CDT Height 180.3 cm (5' 11 ) 02/02/2024 1:00 PM CDT Body Mass Index 33.47 02/02/2024 1:00 PM CDT Plan of Treatment Health Maintenance Due Date Last Done Comments Hepatitis C Virus (HCV) Screening 1960 Colonoscopy 2003 Colorectal Cancer Screening 2003 Cologuard 2008 Immunochemical Fecal Occult Blood 2008 Pneumococcal Immunization (5 0+ years) (1 of 1 - PCV) 2008 Zoster Immunization (1 of 2) 2008 PSA Discussion 2013 AAA Screening Ultrasound 2023 Influenza Immunization (#1) 2024 04/13/2018 SARS-COV-2 Immunization ( - season) 2024 Respiratory Syncytial Virus (RSV) Immunization (Adult) (1 - 1-dose 75+ series) 2033 TdaP Immunization Completed 01/04/2019 Hepatitis B Immunization Aged Out No longer eligible based on patient's age to complete this topic Meningococcal Immunization (ACWY) Aged Out No longer eligible based on patient's age to complete this topic Rotavirus Immunization Aged Out No lo nger eligible based on patient's age to complete this topic Insurance MEDICARE [facility] Care Teams Weight Analyst Relationship Specialty Start Date End Date Pao Figueroa, HYDROLOGY TECHNICIAN, SUBSTANCE ABUSE RN [address] [place] [address] PCP - General Advanced Practice Nurse 01/28/24
== END 2024-10-05 15:50 | disposition home or self-care (01) ==
PROVIDERS: PCP Nurse Practitioner Adult Health; Visit Provider Urology
DX: N40.1 Benign prostatic hyperplasia with lower urinary tract symptoms (principal); R91.8 Other nonspecific abnormal finding of lung field; K44.9 Diaphragmatic hernia without obstruction or gangrene; K86.89 Other specified diseases of pancreas; Z79.84 Long term (current) use of oral hypoglycemic drugs
CPT/HCPCS: 74176

== ENCOUNTER 2024-11-05 12:27 | Emergency (ER) | payer MEDICARE, SELFPAY ==
--- NOTE | 2024-11-05 12:28 | ED.URI ---
HPI - URI/Sore Throat General Chief Complaint: Upper Respiratory Infection Stated Complaint: sore throat Time Seen by Provider: 11/05/24 12:52 Source: patient and RN notes reviewed Mode of arrival: ambulatory Limitations: no limitations History of Present Illness HPI Narrative: 64-year-old male presents with concern for sore throat that started yesterday. He denies runny nose, stuffy nose, cough, fever, aches, chills, sweats. He took Tylenol without relief. MD elicited complaint: sore throat Related Data Home Medications ?Medication ?Instructions ?Recorded ?Confirmed ?Last Taken ?Type cyclobenzaprine 10 mg tablet 10 mg PO QID PRN Muscle Spasm 05/29/23 09/22/24 06/29/23 History furosemide 20 mg tablet 20 mg PO BID 05/29/23 09/22/24 06/29/23 History hydrocodone 10 mg-acetaminophen 10 - 325 tablet PO QID PRN Back 05/29/23 09/22/24 06/27/23 History 325 mg tablet Pain Allergies Allergy/AdvReac Type Severity Reaction Status Date / Time No Known Allergies Allergy Verified 08/16/24 13:27 Review of Systems Review of Systems: CONSTITUTIONAL: Denies malaise, chills, sweats, or fever. EYES: Denies visual changes, redness, or discharge. ENT: Denies rhinorrhea, congestion, sinus pain, otalgia. Reports sore throat. CARDIOVASCULAR: Denies chest pain, palpitations, or edema. RESPIRATORY: Denies cough. Denies dyspnea. GASTROINTESTINAL: Denies abdominal pain, nausea, vomiting, diarrhea SKIN: Denies rash or itching. MUSCULOSKELETAL: Denies myalgia. NEUROLOGIC: Denies headache. All systems reviewed & are unremarkable except as noted in HPI and below PMFSH Past Medical History Medical History Encounter for fitting and adjustment of spinal cord stimulator HTN (hypertension) Obesity Chronic narcotic use Depression Anxiety Arthritis DVT prophylaxis BPH (benign prostatic hyperplasia) GERD (gastroesophageal reflux disease) Chronic pain syndrome Surgical History Surgical History History of neck surgery c4-c5 discectomy History of shoulder surgery bilateral Status post total right knee replacement [facility] Dr Daniel History of inguinal hernia repair H/O rotator cuff surgery Status post gastric banding Family History Family History (Reviewed 06/23/24 @ 07:14 by Evelina Chamberlain [facility]) Father Colon cancer Grandparent Colon cancer Mother No problems noted. Sibling No problems noted. Social History Social History (Updated 06/23/24 @ 08:21 by Andreea Hodge [facility]) Smoking packs per day: 2 Smoking cigarettes per day: 40.0 Years smoked: 20 Smoking pack-years: 40.00 Smoking status: Former smoker Tobacco type: cigarettes Second hand tobacco smoke exposure: No Smoking end date: 05/25/99 Alcohol intake: current Drinks per week: 7 Alcohol use details: WINE WITH DINNER Substance use: never Substance use type: does not use Do You Feel Safe in your Home?: Yes Lack of Transportation: No Lack of Food: Never True Current Housing: I Have Housing Concerned About Future Housing: No Difficulty Paying Gas/Electric Bills: No Difficulty Paying for Meds: No Currently Unemployed: No Education: Trade/Vocational Certificate Difficulty w/ Childcare or Family Care: No Living arrangements: with family Occupation/Education: other 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 There is no relevant family history pertinent to the presenting complaint Exam Narrative: GENERAL: Well-appearing, well-nourished, and in no acute distress. HEAD: Normocephalic EYES: PERRLA, conjunctivae clear ENT: Nares clear. Mucous membranes moist. TM pearly alvarez with sharp light reflex bilaterally; no tragal tenderness. Oropharynx erythematous without lesions. Tonsils not enlarged and without exudate, no drooling, no hoarseness, no trismus, uvula midline. NECK: Supple. No lymphadenopathy CHEST: Clear to auscultation, breath sounds equal. No wheezing, rhonchi, rales, or stridor. No respiratory distress, speaks in full sentences. HEART: Regular rate and rhythm. No murmur heard. SKIN: Warm, dry, no rash. NEURO: Alert and oriented x3. PSYCH: Normal mood and affect Course Course Emergency Course: Patient is aware of diagnosis, understands and agrees to treatment plan. Anticipatory guidance given. Patient agrees to follow-up as directed and is aware of reasons to seek care at the emergency department. Portions of this record may have been created with voice recognition software Level of Care: Express Care Visit Vital Signs Vital signs: Reviewed. MDM - URI/Sore Throat MDM Narrative Medical decision making narrative: Differential diagnosis considered: Bonner virus, strep pharyngitis, allergic rhinitis, upper respiratory tract infection, sinusitis, rhinosinusitis, nasopharyngitis. viral pharyngitis, otitis media, otitis externa, pneumonia, bronchitis, viral cough syndrome, viral syndrome, and influenza. Exam findings show no acute concerns or changes; patient is non-toxic appearing and is in no distress. Patient is appropriate for outpatient treatment and follow-up. Lab Data Attestation: I reviewed the patient's lab results. Critical Care Time Critical Care Time Critical Care Time: No Discharge Plan Discharge Clinical Impression: Pharyngitis Patient Disposition: Home Condition: Stable Instructions: Pharyngitis (ED) Additional Instructions: Your rapid strep swab was negative today at [facility]. A throat culture will be sent to the laboratory for further testing. If the test is positive, you will receive a phone call within 48 hours and an appropriate antibiotic will be initiated at that time. Your symptoms are likely due to a viral illness, which is not treated with antibiotics. Viral symptoms can be present for up to a few weeks. -Alternate Tylenol and Motrin per package directions for fever or pain. -Antihistamine medication such as Benadryl at night and Zyrtec during the day can help improve symptoms. -Eat and drink things that are easy to swallow, like tea or soup, or popsicles to suck on. -Oral rinses such as: Salt water gargles and/or may use topical anesthetic (eg. Chloraseptic spray) or lozenges to relieve dryness or throat pain). -Frequent hand washing or hand aerodynamic consultant is one of the best ways to prevent spread of infection. -Follow up with primary care provider in 2-3 days if condition is not improving; or seek ER visit if you have trouble breathing, cannot drink enough fluids, have muffled voice, difficulty opening your mouth, or severe swelling. Patient Language: Gabonese Prescriptions: New lidocaine HCl [Lidocaine Viscous] 2 % solution 5 ml MUCOUS MEM QID PRN (Reason: pain) Qty: 100 0RF Rx Instructions: Gargle and spit No Action tamsulosin 0.4 mg capsule 0.4 mg PO BID Qty: 180 3RF diclofenac sodium 75 mg tablet,delayed release (DR/EC) 75 mg PO BID Qty: 180 3RF escitalopram oxalate 10 mg tablet See Rx Instructions .ROUTE .COMPLEX Qty: 90 2RF Dose Instruction: TAKE 1 TABLET BY MOUTH EVERYDAY AT BEDTIME Rx Instructions: TAKE 1 TABLET BY MOUTH EVERYDAY AT BEDTIME phentermine 37.5 mg tablet 37.5 mg PO DAILY Qty: 30 1RF Rx Instructions: must administer 30 minutes before or 1-2 hours after breakfast cyclobenzaprine 10 mg tablet 10 mg PO QID PRN (Reason: Muscle Spasm) hydrocodone-acetaminophen 10-325 mg tablet 10 - 325 tablet PO QID PRN (Reason: Back Pain) furosemide 20 mg tablet 20 mg PO BID finasteride 1 mg tablet 1 mg PO DAILY Qty: 30 0RF lisinopril 10 mg tablet 10 mg PO QAM Qty: 90 3RF pantoprazole 40 mg tablet,delayed release (DR/EC) See Rx Instructions .ROUTE .COMPLEX Qty: 90 3RF Dose Instruction: TAKE 1 TABLET BY MOUTH EVERY DAY Rx Instructions: TAKE 1 TABLET BY MOUTH EVERY DAY pantoprazole 40 mg tablet,delayed release (DR/EC) See Rx Instructions .ROUTE .COMPLEX Qty: 60 0RF Dose Instruction: TAKE 1 TABLET BY MOUTH TWICE A DAY X30 DAYS Rx Instructions: TAKE 1 TABLET BY MOUTH TWICE A DAY X30 DAYS zolpidem 10 mg tablet 10 mg PO QHS Qty: 90 1RF Follow-up/Referrals: Tali Bailey APRN [Primary Care Provider] - Time of Disposition: 12:59
[2024-11-05 12:35] VITALS: BP 136/87; PULSE 101; RESP 16; TEMP 37.4; O2SAT 99
[2024-11-05 12:55] LABS: EDSTREPNEGPOS1 Negative (Negative)
[2024-11-05 12:55] LABS: EDSTREPNEGPOS1 Negative (Negative)
== END 2024-11-05 13:05 | disposition home or self-care (01) ==
PROVIDERS: Emergency Provider Nurse Practitioner; PCP Nurse Practitioner Adult Health
DX: J02.9 Acute pharyngitis, unspecified (principal); Z87.891 Personal history of nicotine dependence; I10 Essential (primary) hypertension; M19.90 Unspecified osteoarthritis, unspecified site; N40.0 Benign prostatic hyperplasia without lower urinary tract symptoms; K21.9 Gastro-esophageal reflux disease without esophagitis; E66.9 Obesity, unspecified; Z68.36 Body mass index [BMI] 36.0-36.9, adult; Z98.84 Bariatric surgery status; Z96.651 Presence of right artificial knee joint
CPT/HCPCS: 87081; 87880; 99213; G0463

== ENCOUNTER 2025-03-15 10:19 | Outpatient (CLI) | payer MEDICARE, SELFPAY ==
--- NOTE | ~2025-03-15 | XR_ITS ---
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 Comparison: None Findings: Grade 1 anterolisthesis of L4 on L5, no fracture, no subluxation flexion- extensionThere are remote compression fractures of T12 and L1 with anterior wedging and loss of height 50% Moderate to severe loss of disc height throughout most marked at L4-5 and L5-S1. Soft tissues unremarkable Spinal canal catheter noted Impression: No acute abnormality. Reviewed, dictated and finalized at location P. Impression: No acute abnormality.
[2025-03-15 12:02] LABS: Alanine Aminotransferase 20 U/L (6-50); Albumin Level 4.2 g/dL (3.5-5.1); Alkaline Phosphatase 69 U/L (38-126); Anion Gap 9 mmol/L (4-12); Aspartate Amino Transferase 27 U/L (17-59); Bilirubin,Total 0.7 mg/dL (0.2-1.3); Blood Urea Nitrogen 15 mg/dL (9-20); Calcium 8.7 mg/dL (8.4-10.2); Carbon Dioxide 25 mmol/L (22-30); Chloride 104 mmol/L (98-107); Cholesterol 207 mg/dL (0-200); Estimated Glomerular Filt Rate > 60; Glucose 115 mg/dL (65-110); HDL Direct 39 mg/dL; Potassium 3.7 mmol/L (3.4-5.0); Sodium 138 mmol/L (137-145); Total Protein 7.4 g/dL (6.3-8.2); Triglycerides 248 mg/dL (<150)
[2025-03-15 12:40] LABS: Prostate Specific Antigen 0.7 ng/mL (< OR = 4.0)
--- OUTSIDE RECORDS SUMMARY | 2025-03-15 12:45 | XMS_ITS | Clinical Summary ---
Author Organization [facility] Address [address] [place] [address] Phone Care Team Providers Care Tire Tester Name Role Phone Pao Figueroa APRN, MOTION PICTURE SET WORKER Primary Care Provider + Allergies No known [...] 1:00 PM CDT Height 180.3 cm (5' 11) 02/02/2024 1:00 PM CDT Body Mass Index 33.47 02/02/2024 1:00 PM CDT Plan of Treatment Health Maintenance Due Date Last Done Comments Hepatitis C Virus (HCV) Screening 1958 Cologuard 2003 Colonoscopy 2003 Colorectal Cancer Screening 2003 Immunochemical Fecal Occult Blood 2003 Pneumococcal Immunization (5 0+ years) (1 of 1 - PCV) 2008 Zoster Immunization (1 of 2) 2008 PSA Discussion 2013 Medicare Initial AWV [id number] 04/24/2024 Influenza Immunization (#1) 2025 04/13/2018 SARS-COV-2 Immunization (1 - season) 2025 Respiratory Syncytial Virus (RSV) Immunization (Adult) (1 - 1-dose 75+ series) 2033 TdaP Immunization Completed 01/04/2019 Hepatitis B Immunization Aged Out No longer eligible based on patient's age to complete this topic Human Papillomavirus (HPV) Immunization Aged Out No longer eligible b ased on patient's age to complete this topic Meningococcal Immunization (ACWY) Aged Out No longer eligible based on patient's age to complete this topic Rotavirus Immunization Aged Out No lo nger eligible based on patient's age to complete this topic Insurance MEDICARE [facility] Care Teams Tire Tester Relationship Specialty Start Date End Date Pao Figueroa APRN, MOTION PICTURE SET WORKER [address] [place] [address] PCP - General Advanced Practice Nurse 01/28/24
--- OUTSIDE RECORDS SUMMARY | 2025-03-15 12:45 | XMS_ITS | Data Portability ---
Author Organization [place] [facility], Main Office Address [address] [place] [address] Care Team Providers Care Beater Engineer Name Role Phone CARLA SCOTT Primary Care Provider CARLA SCOTT Referring Provider Assessment Encounter Date [...] will return in a month for follow-up. [email or web address] Not available 12/11/2022 09:31:46 Plan of Treatment Reminders Order Date Submit Date Provider Last Modified By Organization Details Last Modified Time Details Appointments None recorded. Lab PTH (parathyroi d hormone), intact, serum or plasma 2022 023 [email or web address] 1 [facility] (Lab), [address] [place], [address], 3 10:12:48 calcium, ionized, blood 2022 023 [email or web address] 5 [facility] (Lab), [address] [place], [address], 3 22:19:33 vitamin D, 25-hydroxy, total, serum 2022 023 [email or web address] [facility] (Lab), [address] [place], [address], 3 09:53:32 Referral cardiologis t referral - Please call pt to schedule appt. Thank you 2022 023 [email or web address] [facility], [address] [facility], [place], [address], 3 08:18:29 Procedures injection/a spiration joint/bursa (PROC) - in office procedure, administere d by provider 2022 023 [email or web address] In-Office Order, Internal Use Only DO Not Attach Compendium DO Not Attach Compendium, Do Not Delete/merge, [id number] 3 14:08:45 injection/a spiration joint/bursa (PROC) - in office procedure, administere d by provider 2022 023 [email or web address] In-Office Order, Internal Use Only DO Not Attach Compendium DO Not Attach Compendium, Do Not Delete/merge, [id number] 3 09:25:10 Surgeries None recorded. Imaging electrocard iogram 2022 023 [email or web address], [address] [place] [address] [address], [place], [address], 3 10:10:51 CT, chest, w/o contrast - STAT HOLD CALL 2022 023 [facility] ([facility]), [address], [place], [address], 3 11:41:48 Medication Orders Kenalog 10 mg/mL suspension for injection 2022 023 [place] [address] [id number], [address], [place], [address], 4 12:08:38 ropivacaine (PF) 5 mg/mL (0.5 %) injection solution 2022 023 [place] [address] [id number], [address] [place], [address], 4 12:08:38 Kenalog 10 mg/mL suspension for injection [address][id number], [address], [place], [address], 4 12:08:38 ropivacaine (PF) 5 mg/mL (0.5 %) injection solution [address] #[id number], [address] [place], [address], 4 12:08:38 prednisone 10 mg tablets in a dose pack 2022 023 [email or web address] 158 [facility] #[id number], [address] [place], [address], 3 09:49:57 Patient TargetsNo targets recorded. Patient InstructionsNo instructions recorded. Reason for Referral Community Resource Consultant Referral for EC G: sinus arrhythmia Please call pt to schedule appt. Thank you Referring Physician: Carla Scott, [facility] Medicine, Encounter Date: 08/06/2022 Results Created Date Observation Date Name Description Value Unit Range Abnormal Flag Note LastModifiedBy Organization Detail LastModifiedTime 03/19/2003/21/2022 FOLAT E, SERUM /PLAS MA folate 11.2 NG/mL 2.76-2 0.0 Not Available [facility] (Lab) [address] [place], [address], 03/21/2022 10:00:28 03/19/2003/21/2022 VITAM IN B12 (PEGGY JARAD ) vb12 636 pg/mL 239-93 1 Not Available [facility] (Lab) [address] [place], [address], 03/21/2022 10:00:22 03/19/2003/19/2022 PHOSP HORUS phosphorus 3.7 mg/dL 2.5-4. 5 Not Available [facility] (Lab) [address] [place], [address], 03/19/2022 19:35:59 03/19/2003/19/2022 MAGNE SIUM magnesium 2.1 mg/dL 1.6-2. 3 Not Available [facility] (Lab) [address] [place], [address], 03/19/2022 19:35:57 03/19/2003/19/2022 LIPID PANEL LDL cholesterol, [...] WILL NOT BE REPOR AKILAH. Not Available [facility] (Lab) [address] [place], [address], 03/19/2022 19:35:56 03/19/2003/19/2022 LIPID PANEL cholesterol 208 mg/dL 140-19 9 high NIH ANNELISE NSUS RECOM MENDA TION FOR SEBASTIAN STERO L: ADULT CHILD LOW RISK: <200 <170 BORDE RLINE : <200- 239 ----- HIGH RISK: >240 >200 Not Available [facility] (Lab) [address] [place], [address], 03/19/2022 19:35:56 03/19/2003/19/2022 LIPID PANEL triglyceride s 167 mg/dL 0-150 high NIH ANNELISE NSUS REPOR T RECOM MENDA TION FOR TRIGL YCERI ROI: ADULT CHILD LOW RISK: <150 ----- BODER LINE: 150-1 99 ----- HIGH RISK: >200 ----- Not Available [facility] (Lab) [address] [place], [address], 03/19/2022 19:35:56 03/19/2003/19/2022 LIPID PANEL HDL cholesterol 69 mg/dL 40- Not Available [facility] (Lab) [address] [place], [address], 03/19/2022 19:35:56 03/19/2003/19/2022 COMPR EHENS SCOUT METAB OLIC PANEL glucose 89 mg/dL 70-99 Not Available [facility] (Lab) [address] [place], [address], 03/19/2022 19:35:54 03/19/20 22 03/19/2022 COMPR EHENS SCOUT METAB OLIC PANEL sodium 137 mmol/ L 137-14 5 Not Available [facility] (Lab) [address] [place], [address], 03/19/2022 19:35:54 10/2603/19/2022 COMPR EHENS SCOUT METAB OLIC PANEL potassium 5.0 mmol/ L 3.5-5. 1 Not Available [facility] (Lab) [address] [place], [address], 03/19/2022 19:35:54 03/19/20 22 03/19/2022 COMPR EHENS SCOUT METAB OLIC PANEL chloride 102 mmol/ L 98-107 Not Available [facility] (Lab) [address] [place], [address], 03/19/2022 19:35:54 03/19/2003/19/2022 COMPR EHENS SCOUT METAB OLIC PANEL carbon dioxide 32 mmol/ L 22-30 high Not Available [facility] (Lab) [address] [place], [address], 03/19/2022 19:35:54 03/19/20 22 03/19/2022 COMPR EHENS SCOUT METAB OLIC PANEL anion gap 8.0 mmol/ L 14-22 low Not Available [facility] (Lab) [address] [place], [address], 03/19/2022 19:35:54 03/19/20 22 03/19/2022 COMPR EHENS SCOUT METAB OLIC PANEL BUN 21 mg/dL 8-19 high Not Available [facility] (Lab) [address] [place], [address], 03/19/2022 19:35:54 03/19/20 22 03/19/2022 COMPR EHENS SCOUT METAB OLIC PANEL creatinine 0.80 mg/dL 0.66-1 .25 Not Available [facility] (Lab) [address] [place], [address], 03/19/2022 19:35:54 03/19/20 22 03/19/2022 COMPR EHENS SCOUT METAB OLIC PANEL GFR >60 Refer ence Range : [place] ge GFR Healt hy Adult : >60 [...] calcu lator is avail able on the [facility] websi te: https ://ww w.kid noa.o rg/pr ofess ional s/kdo qi/gf r_cal culat or Not Available [facility] (Lab) [address] [place], [address], 03/19/2022 19:35:54 03/19/20 22 03/19/2022 COMPR EHENS SCOUT METAB OLIC PANEL alkaline phosphatase 74 U/L 38-126 Not Available [facility] (Lab) [address] [place], [address], 03/19/2022 19:35:54 03/19/20 22 03/19/2022 COMPR EHENS SCOUT METAB OLIC PANEL alanine aminotransfe rase 17 U/L 0-50 Not Available [facility] (Lab) [address] [place], [address], 03/19/2022 19:35:54 03/19/20 22 03/19/2022 COMPR EHENS SCOUT METAB OLIC PANEL aspartate aminotransfe rase 22 U/L 15-46 Not Available [facility] (Lab) [address] [facility] [place], [address], 03/19/2022 19:35:54 03/19/20 22 03/19/2022 COMPR EHENS SCOUT METAB OLIC PANEL bilirubin, total 1.00 mg/dL 0.20-1 .30 Not Available [facility] (Lab) [address] [place], [address], 03/19/2022 19:35:54 03/19/20 22 03/19/2022 COMPR EHENS SCOUT METAB OLIC PANEL calcium 9.3 mg/dL 8.4-10 .2 Not Available [facility] (Lab) [address] [place], [address], 03/19/2022 19:35:54 03/19/2003/19/2022 COMPR EHENS SCOUT METAB OLIC PANEL total protein 7.1 g/dL 6.3-8. 2 Not Available [facility] (Lab) [address] [place], [address], 03/19/2022 19:35:54 03/19/20 22 03/19/2022 COMPR EHENS SCOUT METAB OLIC PANEL albumin 4.2 g/dL 3.0-4. 4 Not Available [facility] (Lab) [address] [place], [address], 03/19/2022 19:35:54 03/19/20 22 03/19/2022 COMPR EHENS SCOUT METAB OLIC PANEL globulin 2.9 g/dL 2.6-4. 2 Not Available [facility] (Lab) [address] [place], [address], 03/19/2022 19:35:54 03/19/20 22 03/19/2022 COMPR EHENS SCOUT METAB OLIC PANEL A/G ratio 1.4 ratio 1.0-2. 0 Not Available [facility] (Lab) [address] [place], [address], 03/19/2022 19:35:54 03/19/20 22 03/19/2022 PARAT HY.HO RM(PT H)INT ACT-W /O CA intact parathyroid hormone 66.3 pg/mL 24.0-7 8.0 Not Available [facility] (Lab) [address] [place], [address], 03/19/2022 19:32:53 03/19/20 22 03/19/2022 CBC/C OMPLE TE BLD COUNT W/DIF F mean red cell volume 101.6 fL 80.0-9 7.0 high Not Available [facility] (Lab) [address] [place], [address], 03/19/2022 18:30:22 03/19/20 22 03/19/2022 CBC/C OMPLE TE BLD COUNT W/DIF F white blood cells 7.8 x10'3 /uL 4.2-10 .8 Not Available [facility] (Lab) [address] [place], [address], 03/19/2022 18:30:22 03/19/20 22 03/19/2022 CBC/C OMPLE TE BLD COUNT W/DIF F red blood cells 4.28 x10'6 /uL 4.10-5 .80 Not Available [facility] (Lab) [address] [place], [address], 03/19/2022 18:30:22 03/19/20 22 03/19/2022 CBC/C OMPLE TE BLD COUNT W/DIF F hemoglobin 14.9 g/dL 13.2-1 7.0 Not Available [facility] (Lab) [address] [place], [address], 03/19/2022 18:30:22 03/19/20 22 03/19/2022 CBC/C OMPLE TE BLD COUNT W/DIF F hematocrit 43.5 % 39.3-5 0.0 Not Available [facility] (Lab) [address] [place], [address], 03/19/2022 18:30:22 03/19/20 22 03/19/2022 CBC/C OMPLE TE BLD COUNT W/DIF F mean red cell hemoglobin 34.8 pg 27.0-3 3.0 high Not Available [facility] (Lab) [address] [place], [address], 03/19/2022 18:30:22 03/19/20 22 03/19/2022 CBC/C OMPLE TE BLD COUNT W/DIF F mean RBC HGB concentratio n 34.3 g/dL 31.0-3 6.0 Not Available [facility] (Lab) [address] [place], [address], 03/19/2022 18:30:22 03/19/20 22 03/19/2022 CBC/C OMPLE TE BLD COUNT W/DIF F red cell distribution width 13.4 % 11.8-1 5.5 Not Available [facility] (Lab) [address] [place], [address], 03/19/2022 18:30:22 03/19/20 22 03/19/2022 CBC/C OMPLE TE BLD COUNT W/DIF F platelets 166 x10'3 /uL 150-40 0 Not Available [facility] (Lab) [address] [place], [address], 03/19/2022 18:30:22 03/19/20 22 03/19/2022 CBC/C OMPLE TE BLD COUNT W/DIF F mean platelet volume 13.0 fL 9.0-12 .4 high Not Available [facility] (Lab) [address] [place], [address], 03/19/2022 18:30:22 03/19/2003/19/2022 CBC/C OMPLE TE BLD COUNT W/DIF F neutrophils 55.7 % 39.0-7 2.0 Not Available [facility] (Lab) [address] [place], [address], 03/19/2022 18:30:22 03/19/20 22 03/19/2022 CBC/C OMPLE TE BLD COUNT W/DIF F lymphocytes 30.5 % 16.0-4 7.0 Not Available [facility] (Lab) [address] [place], [address], 03/19/2022 18:30:22 03/19/2003/19/2022 CBC/C OMPLE TE BLD COUNT W/DIF F monocytes 8.2 % 5.0-12 .0 Not Available [facility] (Lab) [address] [place], [address], 03/19/2022 18:30:22 03/19/2003/19/2022 CBC/C OMPLE TE BLD COUNT W/DIF F eosinophils 3.7 % 1.0-7. 0 Not Available [facility] (Lab) [address] [place], [address], 03/19/2022 18:30:22 03/19/2003/19/2022 CBC/C OMPLE TE BLD COUNT W/DIF F basophils 1.3 % 0.0-2. 0 Not Available [facility] (Lab) [address] [place], [address], 03/19/2022 18:30:22 03/19/2003/19/2022 CBC/C OMPLE TE BLD COUNT W/DIF F immature granulocytes 0.6 % 0.00-0 .50 high Not Available [facility] (Lab) [address] [place], [address], 03/19/2022 18:30:22 03/19/20 22 03/19/2022 CBC/C OMPLE TE BLD COUNT W/DIF F neutrophils, absolute count 4.36 x10'3 /uL 1.5-8. 0 Not Available [facility] (Lab) [address] [place], [address], 03/19/2022 18:30:22 03/19/20 22 03/19/2022 CBC/C OMPLE TE BLD COUNT W/DIF F lymphocytes, absolute count 2.39 x10'3 /uL 1.07-3 .43 Not Available [facility] (Lab) [address] [place], [address], 03/19/2022 18:30:22 03/19/20 22 03/19/2022 CBC/C OMPLE TE BLD COUNT W/DIF F monocytes, absolute count 0.64 x10'3 /uL 0.29-0 .99 Not Available [facility] (Lab) [address] [place], [address], 03/19/2022 18:30:22 03/19/20 22 03/19/2022 CBC/C OMPLE TE BLD COUNT W/DIF F eosinophils, absolute count 0.29 x10'3 /uL 0.02-0 .53 Not Available [facility] (Lab) [address] [place], [address], 03/19/2022 18:30:22 03/19/20 22 03/19/2022 CBC/C OMPLE TE BLD COUNT W/DIF F basophils, absolute count 0.10 x10'3 /uL 0.01-0 .08 high Not Available [facility] (Lab) [address] [place], [address], 03/19/2022 18:30:22 03/19/20 22 03/19/2022 CBC/C OMPLE TE BLD COUNT W/DIF F immature granulocytes ,absolute 0.05 x10'3 /uL 0.00-0 .05 Not Available [facility] (Lab) [address] [place], [address], 03/19/2022 18:30:22 03/19/20 22 03/19/2022 CBC/C OMPLE TE BLD COUNT W/DIF F nucleated red blood cells 0.0 % -0 Not Available [facility] (Lab) [address] [place], [address], 03/19/2022 18:30:22 03/19/20 22 03/19/2022 CBC/C OMPLE TE BLD COUNT W/DIF F NRBC# 0.00 x10'3 /uL Not Available [facility] (Lab) [address] [place], [address], 03/19/2022 18:30:22 08/07/19 23 08/06/2022 VITAM IN D 25-HY DROXY vd25oh 33.2 NG/mL 30-100 Vitam in D Statu s: Defic ient: <20 ng/mL Insuf ficie nt: 20-29 ng/mL Suffi cient : 30-10 0 ng/mL Not Available [facility] (Lab) [address] [place], [address], 08/06/2022 19:43:48 08/07/19 23 08/08/2022 CALCI UM, IONIZ ED/LC calcium, ionized, serum 4.6 mg/dL 4.5-5. 6 Perfo rmed at: [facility] [address] [address] Lab Direc tor: Royce herring PhD, Phone : [phone] Not Available [facility] (Lab) [address] [place], [address], 08/08/2022 14:12:28 05/12/20 22 05/12/2022 XR, cervi emili spine No observ ation record ed. [id number], [place], [address], 07/23/2022 01:21:13 08/07/19 23 elect rocar diogr am No observ ation record ed. [facility] [address], [place], [address], 08/06/2022 09:52:12 08/07/19 23 08/06/2022 XR, chest , 2 view [facility] [address], [place] [address] [phone] Jose Roberto sy Name: SYLWIA FLYNN Access ion #: [id number] Sex: M : 1959 6 Locati [...] cervic al spine. Page 1 of 2 [facility] Jose Roberto sy Name: SYLWIA FLYNN Access ion #: [id number] Sex: M : 1959 6 Exam [...] 10:17 AM (CT) Page 2 of 2 [email or web address] [facility] (Imaging) [address] [place], [address], 08/16/2022 17:53:59 08/07/19 23 08/06/2022 CT, chest , w/o contr ast [facility] [address] [place] [address] [phone] Patien t Name: SYLWIA FLYNN Access ion #: [id number] Sex: M : 1959 6 Locati [...] the patien t's Page 1 of 3 [facility] Patien t Name: SYLWIA FLYNN Access ion #: [id number] Sex: M : 1959 6 Exam Date: 023 10:07 AM Exam Name: CT CHEST WO Admitt ing Diagno sis(es ): previo us consol idativ e pneumo roxane. No pneumo thorax , pulmon ryan edema, pleura l effusi ons, noncal cified pulmon ryan nodule s, or consol idativ e infilt [...] signed by: Maicol rm MD Signed Date: 023 10:39 AM (CT) Dictat ed by: Maicol rm MD Page 2 of 3 [facility] Name: SYLWIA FLYNN ion #: [id number] Sex: M : 1959 6 Exam Date: 10:07 AM Exam Name: CT CHEST WO Admitt ing Diagno sis(es ): DD: 023 10:39 AM (CT) DT: 10:39 AM (CT) Page 3 of 3 [email or web address] [facility] (Imaging) [address] [place], [address], 08/16/2022 17:53:39 08/08/19 23 08/06/2022 elect rocar diogr am No observ ation record ed. [facility] [address], [place], [address], 08/07/2022 10:53:42 08/13/19 23 08/06/2022 CT, chest , w/o contr ast No observ ation record ed. [email or web address] [facility] [address] [place], [address], 08/18/2022 08:29:36 09/03/19 23 09/01/2022 exerc ise stres s test No observ ation record ed. [email or web address] [facility] [address], [place], [address], 09/15/2022 17:17:34 09/03/19 23 09/01/2022 stres s echoc ardio gram No observ ation record ed. [email or web address] [facility] [address], [place], [address], 09/15/2022 17:19:04 09/24/19 23 09/23/2022 PFT, compl ete No observ ation record ed. [email or web address] [facility] [address], [place], [address], 09/24/2022 08:25:31 Result Notes Documentation Provider Name and Address Organization Details Recorded Time Xr, Chest, 2 View : [facility] [address] [place] [address] Patient Name: SYLWIA FLYNN Sex: M : 1960 Location: [facility] Attending Physician: CARLA SCOTT Ordering Physician: CARLA SCOTT Exam Date: 08/06/2022 10:03 AM Exam Name: XR CHEST 2V Admitting Diagnosis(es): RADIOLOGY REPORT - FINAL EXAM: XR CHEST 2V HISTORY: CHEST PAIN 62-year-old male with chest pain and shortness of breath. COMPARISON: Chest x-ray dated 03/26/2021; CT scan of the chest dated 03/26/2021. TECHNIQUE: 2 views of the chest were performed. FINDINGS: No pneumothorax, pulmonary edema, or consolidative infiltrates. There is mild linear scarring in the right upper lobe. There is stable mild elevation of the right hemidiaphragm. The heart is not enlarged. No fractures are identified about the bony thorax. There are postoperative changes of the cervical spine. Page 1 of 2 [facility] Patient Name: SYLWIA FLYNN Sex: M : 1960 Exam Date: 08/06/2022 10:03 AM Exam Name: XR CHEST 2V Admitting Diagnosis(es): IMPRESSION: 1. Resolved right upper lobe pneumonia with subsequent linear scarring. 2. No acute intrathoracic process is identified here. Created and electronically signed by: Maicol York MD Signed Date: 08/06/2022 10:17 AM (CT) Dictated by: Maicol York MD (CT) (CT) Page 2 of 2 [facility] [address] [facility], [facility] [address], [address], [place] [facility] 08/16/2022 17:53:59 Ct, Chest, W/o Contrast : [facility] [address] [place], [place] [address] Patient Name: SYLWIA FLYNN Sex: M : 1960 Location: [facility] Attending Physician: CARLA SCOTT Ordering Physician: CARLA SCOTT Exam Date: 08/06/2022 10:07 AM Exam Name: CT CHEST WO Admitting Diagnosis(es): RADIOLOGY REPORT - FINAL EXAM: CT CHEST WO HISTORY: chest pain on exertion 62-year-old male with chest pain, shortness of breath, former smoker. COMPARISON: Chest CT dated 03/26/2021. TECHNIQUE: Helical CT images of the chest were performed without contrast. Sagittal and coronal reformatted images were obtained. This CT exam was performed using one or more of the following dose reduction techniques: Automated exposure control, adjustment of the mA and/or kV according to patient size, or use of iterative reconstruction technique. FINDINGS: There is linear scarring in the right upper lobe in the area of the patient's Page 1 of 3 [facility] Patient Name: SYLWIA FLYNN Sex: M : 1960 Exam Date: 08/06/2022 10:07 AM Exam Name: CT CHEST WO Admitting Diagnosis(es): previous consolidative pneumonia. No pneumothorax, pulmonary edema, pleural effusions, noncalcified pulmonary nodules, or consolidative infiltrates. No suspicious mediastinal or axillary adenopathy. The heart is not enlarged. There are coronary artery calcifications. No thoracic aortic aneurysm. No fractures are identified about the bony thorax. There is mild bilateral gynecomastia. There is fecal retention in the partially visualized colon. There are postoperative changes of gastric bypass and cholecystectomy. There is a small sliding hiatal hernia. There is fatty atrophy of the pancreas. There is a left upper quadrant splenule. There is fecal retention in the partially visualized colon. There is moderate lower thoracic degenerative disc disease and advanced upper lumbar degenerative disc disease. IMPRESSION: 1. Right upper lobe scarring without evidence of acute intrathoracic process. 2. Coronary artery disease. 3. Fecal retention in the partially visualized colon suggestive of constipation. 4. Postoperative changes of gastric bypass and cholecystectomy. 5. Small sliding hiatal hernia. 6. Pancreatic atrophy. 7. Moderate lower thoracic and advanced upper lumbar degenerative disc disease. Created and electronically signed by: Maicol York MD Signed Date: 08/06/2022 10:39 AM (CT) Dictated by: Maicol York MD Page 2 of 3 [facility] Patient Name: SYLWIA FLYNN Sex: M : 1960 Exam Date: 08/06/2022 10:07 AM Exam Name: CT CHEST WO Admitting Diagnosis(es): (CT) (CT) Page 3 of 3 [facility] [address] [employer], [place], [address], [employer] 08/16/2022 17:53:39 Problems Name Problem SNOMED Code Status Onset Date Resolution Date Notes Provider Name and Address Organization Details Recorded Time Disorder of shoulder 792146054 Completed Not Available [facility] 3 01:11:56 Nocturia 470713541 Active Not Available [facility] 4 11:39:44 Backache 116746716 Completed Not Available [facility] 3 01:11:56 Increased frequency of urination 241875753 Completed Not Available [facility] 3 01:11:57 Abdominal pain 35370810 Completed Not Available [facility] 3 01:11:57 Shoulder joint pain 325064143 Completed Not Available [facility] 3 01:11:57 Chest pain 94809773 Completed ROZINA Alatorre [address], [place], [address] , [employer] 3 09:21:15 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 88641480 Completed Not Available [facility] 3 01:11:57 Current tear of medial cartilage AND/OR meniscus of knee Completed Not Available [facility] 3 01:11:57 Knee pain Completed Not Available [facility] 3 01:11:57 Osteoarth ritis 792480867 Active Not Available [facility] 4 11:39:44 Disorder of rotator cuff 168918580 Active Not Available [facility] 4 11:39:44 Gastritis 7147473 Completed Not Available [facility] 3 01:11:58 Disorder of bursa of shoulder region 76327251 Completed Not Available [facility] 3 01:11:58 Essential hypertens ion 44875504 Active Not Available [facility] 4 11:39:44 Derangeme nt of knee 80821033 Completed Not Available [facility] 3 01:11:59 Osteoarth ritis of shoulder region 56142458 Completed Not Available [facility] 3 01:11:59 Retention of urine 448120809 Active Deisi Mason APRN [address] [facility], [facility] [address], [place], [address] , [place] [facility] [place] [facility] 4 12:08:30 Edema of lower extremity 132490989 Completed 201607/07/2018 Not Available [facility] 3 01:11:56 Bleeding from nose 187864874 Completed 201604/13/2018 Not Available [facility] 3 01:11:57 Neck pain 85146903 Completed 201611/25/2019 Not Available [facility] 3 01:11:59 Rhinitis 75199899 Completed 201707/30/2020 Not Available [facility] 3 01:11:59 Vitamin D deficienc y 61168545 Active 2017 Not Available [facility] 4 11:39:44 Osteoarth ritis of knee 912715423 Completed 201807/30/2020 Not Available [facility] 3 01:11:57 Acute meniscal tear, medial, posterior horn 544880603 Completed 201811/25/2019 Not Available [facility] 3 01:11:57 History of total knee arthropla sty 60546410732 05 Active 2019 Not Available [facility] 4 11:39:44 Tendiniti s of right shoulder 03254199033 98989 Completed 202007/30/2020 Not Available [facility] 3 01:11:56 Tendiniti s of left shoulder 46788104399 49478 Completed 202007/30/2020 Not Available [facility] 3 01:11:56 Edema of lower extremity 760802478 Active 2020 Not Available [facility] 4 11:39:44 History of bariatric surgical procedure 338512405 Active 2020 Not Available [facility] 4 11:39:44 Mixed anxiety and depressiv e disorder 317043656 Active 2020 Not Available [facility] 4 11:39:44 Disorder of parathyro id gland 85159156 Active 2021 Not Available [facility] 4 11:39:44 Obesity 267348379 Active 2021 Not Available [facility] 4 11:39:44 Cervical disc disorder 941616294 Active 2021 Not Available [facility] 4 11:39:44 Pain of bilateral hip joints 71041884883 360385 Active 2021 Not Available [facility] 4 11:39:44 Trochante ellyn bursitis of left hip 07853581913 9103 Active 2021 Not Available [facility] 4 11:39:44 Trochante ellyn bursitis of right hip 89552697559 9100 Active 2021 Not Available [facility] 4 11:39:44 Macrocyto sis 879769730 Active 2021 Not Available [facility] 4 11:39:44 Hyperpara thyroidis m 58648225 Active 2021 Not Available [facility] 4 11:39:44 Hypercalc emia 38448225 Active 2022 Not Available [facility] 4 11:39:44 Chest pain 41228801 Active 2022 Not Available [facility] 4 11:39:44 ECG: sinus arrhythmi a 948409388 Active 2022 Not Available [facility] 4 11:39:44 Dyspnea on exertion 49593946 Active 2022 Not Available [facility] 4 11:39:44 Chest pain on exertion 01313371 Active 2022 Not Available [facility] 4 11:39:44 Insomnia 431557181 Active 2022 Not Available [facility] 4 11:39:44 Bilateral trochante ellyn bursitis 78586316665 024823 Active 2022 Not Available [facility] 4 11:39:44 Problem Notes None recorded. Procedures Surgical History Date Name Laterality Status Provider Name and Address Organization Details Recorded Time 12/12/19 23 Ortho - Cortisone Injection completed Raphael Daniel MD [address], [address], [place], [address], [facility] [employer] [facility] 12/11/2022 09:29:02 08/06/19 23 Ortho - Cortisone Injection completed Raphael Daniel MD [address], [address], [place], [address], [facility] [employer] [facility] 08/05/2022 09:48:30 05/25/19 00 Knee Surgery completed Not Available [facility] 023 01:05:31 Gallbladder Surgery completed Not Available [facility] 07/23/2022 01:05:31 Neck Surgeries completed [facility] Available [facility] 07/23/2022 01:05:31 Imaging Results None recorded. Procedure Notes None recorded. Medical Equipment None Reported. Allergies Allergen ID Allergen Name Allergen Category Reaction Reaction Severity Criticality Documentation Date Start Date Code Code System Note Provider Name and Address Organization Details Recorded Time 13894 No known allergy (situatio n) Not available Not available Not available Not available 02/02/2024 [id number] SNLISSETT Mason APRN [address], [address], [place], [address], [place] [facility] 4 12:08:49 Medications Name Sig Start Date Stop Date Status Note LastModified by Organization Details LastModified Time cyclobenz aprine 10 mg tablet 1 tablet by oral route. active Not Available Not Available No t Available prednison e 10 mg tablet TAKE 1 TAB 3 TIMES DAILY X 3 DAYS, 1 TWICE DAILY X 2 DAYS THEN 1 DAILY X 1 DAY active Not Available Not Available No t Available hydrocodo ne 5 mg-acetam inophen 325 mg tablet TAKE 1-2 TABLETS BY MOUTH ONCE EVERY 4 HOURS NEEDED FOR PAIN 03/19 completed Not Available Not Available Not Available phentermi ne 37.5 mg tablet TAKE 1 TABLET BY MOUTH EVERY DAY active Not Available Not Available No t Available ciproflox acin 500 mg tablet TAKE 1 TABLET BY MOUTH EVERY 12 HOURS 04/13 completed Not Available Not Available Not Available hydrocodo ne 10 mg-acetam inophen 325 mg tablet 1 tablet by oral route. active Not Available Not Available No t Available omeprazol e 40 mg capsule,d elayed release active Not Available Not Available Not Available phentermi ne 30 mg capsule 01/18 completed Not Available Not Available Not Available prednison e 10 mg tablets in a dose pack Take 1 tab by mouth, 3 times a day for 3 daysTake 1 tab by mouth 2 times a day for 2 daysTake 1 tab by mouth once a day for 1 day 2022 active Not Available Not Available Not Avai lable oxycodone -acetamin ophen 5 mg-325 mg tablet TAKE 1 2 TABLETS BY MOUTH EVERY 4 6 HOURS NEEDED active Not Available Not Available No t Available Lidoderm 5 % topical patch 1 patch every 12 hours daily active Not Available Not Available No t Available tamsulosi n 0.4 mg capsule 1 capsule by oral route. active Not Available Not Available No t Available Kenalog 10 mg/mL suspensio n for injection in office 2022 active NDC: 0003-049 09-11 Not Available Not Available Not Available meclizine 25 mg tablet 01/13 completed Not Available Not Available Not Available benzonata te 100 mg capsule 07/30 completed Not Available Not Available Not Available hydrocodo ne 7.5 mg-acetam inophen 325 mg tablet active Not Available Not Available Not Available pantopraz ole 40 mg tablet,de layed release 1 tablet by oral route. active Not Available Not Available No t Available ranitidin e 150 mg tablet Take 1 tablet(s ) twice a day by oral route for 90 days. active Not Available Not Available No t Available lisinopri l 10 mg tablet active Not Available Not Available Not Available Prevalite 4 gram powder for suspensio n in a packet MIX 1 PACKET AND DRINK ONCE TO TWICE DAILY NEEDED 02/05 completed Not Available Not Available Not Available docusate sodium 100 mg capsule active Not Available Not Available Not Available gabapenti n 300 mg capsule TAKE 1 CAPSULE BY MOUTH THREE TIMES A DAY 03/06 completed Not Available Not Available Not Available omeprazol e 20 mg capsule,d elayed release TAKE 1 CAPSULE BY MOUTH TWICE A DAY active Not Available Not Available No t Available diclofena c sodium 75 mg tablet,de layed release 1 tablet by oral route. active Not Available Not Available No t Available montel[address] st 10 mg tablet Take 1 tablet every day by oral route. active Not Available Not Available No t Available furosemid e 20 mg tablet 1 tablet by oral route. active Not Available Not Available No t Available gabapenti n 100 mg capsule 07/21 completed changed to 300mg TID Not Available Not Available Not Available ergocalci ferol (vitamin D2) 1,250 mcg (50,000 unit) capsule Take 1 capsule every week by oral route. active Not Available Not Available No t Available methylpre dnisolone 4 mg tablets in a dose pack 02/26 completed Not Available Not Available Not Available ondansetr on 4 mg disintegr ating tablet DISSOLVE 1 TABLET ON THE TONGUE EVERY 3 HOURS NEEDED active Not Available Not Available No t Available fluticaso ne propionat e 50 mcg/actua tion nasal spray,[employer] [place] 2 sprays every day by intranas al route at dinner. active Not Available Not Available No t Available dicyclomi ne 10 mg capsule Take 1 capsule every 6 hours by oral route as needed for 10 days. active Not Available Not Available No t Available Ambien 10 mg tablet 1 tablet by oral route. active Not Available Not Available No t Available phentermi ne 37.5 mg capsule TAKE 1 CAPSULE BY MOUTH EVERY DAY. MAY FILL EVERY 30 DAYS. 03/15 completed Not Available Not Available Not Available amoxicill in 875 mg-potass ium clavulana te 125 mg tablet TAKE 1 TABLET BY MOUTH EVERY 12 HOURS UNTIL GONE active Not Available Not Available No t Available amoxicill in 500 mg-potass ium clavulana te 125 mg tablet 10/02 completed Not Available Not Available Not Available oxycodone 5 mg tablet 12/11 completed Not Available Not Available Not Available Lexapro 10 mg tablet 1 tablet by oral route. active Not Available Not Available No t Available cholestyr amine (with sugar) 4 gram powder for susp in a packet MIX 1 PACKET DIRECTED AND DRINK ONCE OR TWICE A DAY NEEDED 07/30 completed Not Available Not Available Not Available ORTHOVISC 30 mg/2 mL intra-art icular syringe Injectio ns given in the office by the doctor 07/30 completed NDC: [id number] 001 Not Available Not Available Not Available duloxetin e 60 mg capsule,d elayed release TAKE 1 CAPSULE BY MOUTH EVERY DAY FOR 30 DAYS 02/05 completed Not Available Not Available Not Available tizanidin e 4 mg capsule TAKE ONE CAPSULE BY MOUTH ONCE DAILY IN THE EVENING 10/12 completed Not Available Not Available Not Available zolpidem ER 12.5 mg tablet,ex tended release,m ultiphase Take 1 tablet every day by oral route at bedtime. active Not Available Not Available No t Available hydrocodo ne 7.5 mg-acetam inophen 300 mg tablet TAKE ONE TABLET BY MOUTH THREE TIMES DAILY NEEDED active Not Available Not Available No t Available lidocaine (PF) 10 mg/mL (1 %) injection solution In office injectio n administ ered by the provider 07/30 completed NDC: 0409-427 6-17 Not Available Not Available Not Available Zostavax (PF) 19,400 unit/0.65 mL subcutane ous suspensio n as directed active Not Available Not Available No t Available diclofena c 1 % topical gel 03/15 completed Not Available Not Available Not Available Dexilant 60 mg capsule, delayed release active Not Available Not Available Not Available Xarelto 10 mg tablet active Not Available Not Available Not Available ropivacai ne (PF) 5 mg/mL (0.5 %) injection solution in office 2022 active [facility] [address] 08-23 Not Available Not Available Not Available Fluvirin 6772-5584 45 mcg (15 mcg x 3)/0.5 mL intramusc ular suspensio n active Not Available Not Available Not Available naloxone 4 mg/actuat ion nasal spray USE ONCE PER DAY NEEDED 03/06 completed Not Available Not Available Not Available Fluarix Quad (PF) 60 mcg (15 mcg x 4)/0.5 mL IM syringe active Not Available Not Available Not Available Vitals Date Recorded Body height Body mass index (BMI) Body weight Provider Name and Address Organization Details Last Updated DateTime 08/05/2022 177.8 cm 31.6 kg/m2 52485.32 g RHONDA Young [place] [employer] 08/05/2022 09:23:56 Date Recorded Body height Body mass index (BMI) Body weight Body temperature Oxygen saturation Oxygen saturation in Arterial blood by Pulse oximetry Heart rate Systolic And Diastolic Provider Name and Address Organization Details Last Updated DateTime 3 177.8 cm 32 kg/m2 907470. 1 g 97 [degF] 93 % 93 % 97 /min 110/76 mm[Hg] Donita Flood MA [facility] 3 09:09:59 Date Recorded Body height Body mass index (BMI) Body weight Provider Name and Address Organization Details Last Updated DateTime 12/11/2022 175.26 cm 32.5 kg/m2 10630.32 g Vicky Jolley [facility] 12/11/2022 09:08:18 Date Recorded Body mass index (BMI) Body height Oxygen saturation Oxygen saturation in Arterial blood by Pulse oximetry Heart rate Body temperature Body weight Systolic And Diastolic Provider Name and Address Organization Details Last Updated DateTime 2 32.9 kg/m2 177.8 cm 97 % 97 % 78 /min 97.6 [degF] 274555. 65 g 125/80 mm[Hg] Not Available [facility] 3 01:07:47 Date Recorded Body mass index (BMI) Body height Oxygen saturation Oxygen saturation in Arterial blood by Pulse oximetry Heart rate Body temperature Body weight Systolic And Diastolic Provider Name and Address Organization Details Last Updated DateTime 2 32.6 kg/m2 177.8 cm 88 % 88 % 30 /min 97.4 [degF] 753477. 47 g 126/68 mm[Hg] Not Available [facility] 01:07:47 Social History Question Answer Notes LastModified by [place] Details LastModified Time Tobacco Smoking Status Former Smoker Not Available [facility] 07/23/2022 01:00:25 What Is Your Level Of Caffeine Consumption? Heavy [id number] Information not available 07/23/2022 How Much Tobacco Do You Chew? None [id number] Information not available 07/23/2022 What Type Of Diet Are You Following? REGULAR [id number].[id number] Information not available 07/23/2022 Which Illicit Or Recreational Drugs Have You Used? None [id number] Information not available 07/23/2022 Are There Any Guns Present In Your Home? No [id number] Information not available 07/23/2022 What Is Your Relationship Status? [id number] Information not available 07/23/2022 How Much Tobacco Do You Smoke? No [id number] Information not available 07/23/2022 Sex: Male Functional Status Question Answer Note LastModified by [employer] Details LastModified Time What is your level of alcohol consumption? Occasional [id number] Information not available 07/23/2022 Do you or have you ever used smokeless tobacco? 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 Never used electronic cigarettes [id number].[id number] Information not available 07/23/2022 What is your exercise level? None [id number] 026 Information not available 07/23/2022 Mental Status None recorded. Family History Relationship Description Onset Age of this Age Resolved Age Notes LastModified by Organization Details LastModified Time Father Malignant neoplasm of prostate [id number] Not available 07/23/2022 01:05:33 Father Malignant neoplasm of colon [id number] [id number] Not available 07/23/2022 01:05:33 Maternal Grandmother Malignant neoplasm of colon [id number].120 [id number] Not available 07/23/2022 01:05:33 Medical History Condition Response ARTHRITIS Y EYE PROBLEMS Y HEADACHES/MIGRAINES Y OBESITY Y GERD/NAUSEA Y HEART DISEASE/HEART PROBLEMS Y URINARY/BLADDER/KIDNEY PROBLEMS Y USE OF NSAIDS Y HAVE YOU BEEN HOSPITALIZED OR SEEN IN [facility] IN THE PAST YEAR ? Immunizations Vaccine Type Date Status Note Provider [facility] e and Address Organization Details Recorded Time Tdap 9 completed Not Available [facility] 06/18/2023 11:39:45 Influenza, split virus, quadrivalent, preservative 8 completed Not Available [facility] 06/18/2023 11:39:45 Influenza, split virus, quadrivalent, PF 8 completed Not Available [facility] 06/18/2023 11:39:45 Past Encounters Encounter ID Performer Location Encounter Start Date Encounter Closed Date Diagnosis/Indication Diagnosis SNOMED-CT Code Diagnosis ICD10 Code Diagnosis IMO Codes Diagnosis Note [id number] [facility] ic_Gateway [facility] [place] [facility] [place] [address] 07/30/2020 00:00:00 07/30/2020 12:37:25 [id number] Deepali Hylton MD [facility] [place] [facility] [place] [address] 02/05/2021 00:00:00 02/05/2021 10:51:20 [id number] Deepali Hylton MD [facility] [place] [facility] [place] [address] 03/06/2021 00:00:00 03/06/2021 10:48:12 [id number] Deepali Hylton MD [facility] [place] [facility] [place] [address] 03/28/2021 00:00:00 03/28/2021 11:05:56 [id number] Deepali Hylton MD [facility] [address] [place] [address] 04/29/2021 00:00:00 04/29/2021 14:24:29 [id number] Deepali Hylton MD [facility] [address] [place] [address] 10/02/2021 00:00:00 10/02/2021 11:37:47 [id number] Deepali Hylton MD [facility] [address] [place] [address] 10/29/2021 00:00:00 10/29/2021 10:12:00 [id number] Radha Carbajal MD _ATHENA_M IGRATION_ DEFAULT_1 _1 , 11/28/2021 00:00:00 11/28/2021 13:08:52 [id number] Raphael Daniel MD [facility] [place] [address] [place] [address] 03/06/2022 00:00:00 03/06/2022 11:02:06 [id number] Deepali Hylton MD [facility] [address] [place] [address] 03/19/2022 00:00:00 03/19/2022 11:52:15 [id number] S[facility] [place] [address] [place] [address] 04/15/2022 00:00:00 04/15/2022 10:17:46 [id number] Kendra Woods MD [facility] [address] [facility] [address] [facility] [address] 05/06/2022 00:00:00 05/06/2022 16:09:15 [id number] Raphael Daniel MD [facility] [address] [facility], [address] [place] [address] 08/05/2022 09:19:56 08/05/2022 10:24:32 Pain of bilateral hip joints [id number] 3905611 M25.551 M25.552 Trochanter ic bursitis of left hip 0854697601 34026 M70.62 Trochanter ic bursitis of right hip 0596255940 45999 M70.61 [id number] ROZINA Alatorre [facility] [address] [facility] [address] [place] [address] 08/06/2022 08:59:47 08/06/2022 10:10:51 Vitamin D deficiency 90015350 E55.9 ChronicVit D wnl (11/28/21) Hyperparathyroidism 6699 9008 E21.3 ChronicPTH 66.3 (03/19/23) Hypercalcemia 02080506 E 83.52 ChronicCa wnl (11/28/22) ECG: sinus arrhythmia 42 5295381 R94.31 New finding in officeAlth ough ekg indicates no significan t abnormalit ies, recommend f/u with ekg in light of pt being symptomati c with cp and sob. Chest pain on exertion 54610540 R07.89 R06.00 New problemWil l check ekg in office and send for cxr tariq, especially in light of pts report of previous chest mass () . [id number] Raphael Daniel MD [facility] [place] [address] [place] [address] 12/11/2022 09:03:15 12/11/2022 09:43:11 Pain of bilateral hip joints 1925060010 9675378 M25.551 M25.552 Bilateral trochanteric bursitis 7849800655 9723239 M70.61 M70.62 Health Concerns Section Related Observation LastModified by Organization Detai ls LastModified Time None Recorded Concern Status LastModified by Organization Details LastModified Time None Recorded Advance Directives Directive None Recorded Payers Insurance Date Sequence Insurance Name Policy Number Policy Dumont Covered Member ID Dumont Member ID Guarantor Name 12/18/2022 1 [facility] [employer] [facility] [id number] Sylwia Flynn [id number] Sylwia Flynn Notes Date Note Type Note Provider Name and Address Organization Details Recorded Time 08/05/2022 text/html Patient presents trochanteric pain right left. He is tender trochanter she has pain to palpation manipulation closed with activity somewhat rest. He is tender when he lays on. Raphael Daniel MD [address], [facility] [address], [place], [address], [facility] 08/05/2022 09:49:54 08/06/2022 text/html 1. Pt in office for 3 month f/u appt.2. Pt states he has been having occasional chest pain, a couple of times per week. Pt states that he doesn't believe it's his heart b/c he previously had an 8cm, non-cancerous, viral infection in the left side of his chest about 3 years ago. Pt states he has been getting sob with activity. ROZINA Alatorre [address], [facility] [address], [place], [address], [facility] 08/06/2022 15:51:35 12/11/2022 text/html Patient presents trochanteric pain right left. He is tender trochanter she has pain to palpation manipulation closed with activity somewhat rest. He is tender when he lays on. Raphael Daniel MD [address], [facility] [address], [place], [address], [facility] 12/11/2022 09:32:17
[2025-03-15 12:59] LABS: Vitamin B12 529.0 pg/mL (239-931)
== END 2025-03-15 10:20 | disposition home or self-care (01) ==
PROVIDERS: PCP Nurse Practitioner Adult Health; Visit Provider Nurse Practitioner Adult Health
DX: Z12.5 Encounter for screening for malignant neoplasm of prostate (principal); M51.369 Other intervertebral disc degeneration, lumbar region without mention of lumbar back pain or lower extremity pain; I10 Essential (primary) hypertension; Z98.1 Arthrodesis status; Z51.81 Encounter for therapeutic drug level monitoring
CPT/HCPCS: 36415; 72110; 80053; 80061; 82607; 84153; G0103